=== PATIENT | female | born 1960 | race Caucasian/White ===

== ENCOUNTER 2022-06-23 14:53 | Outpatient (CLI) | payer MEDICARE, OTHER, SELFPAY ==
[2022-06-23 17:56] LABS: Chloride* 102 mmol/L (96-114); Potassium* 4.8 mmol/L (3.6-5.1); Sodium* 140 mmol/L (135-149)
[2022-06-23 17:58] LABS: Cholesterol* 130 mg/dL (90-199)
[2022-06-23 17:59] LABS: Blood Urea Nitrogen* 11 mg/dL (7-30); Carbon Dioxide* 35 mmol/L (20-32); Creatinine* 0.8 mg/dL (0.5-1.5); Estimated Glomerular Filt Rate 84 ml/min
[2022-06-23 18:00] LABS: Calcium* 8.7 mg/dL (8.4-10.6); Glucose* 98 mg/dL (60-115); HDL Cholesterol* 37 mg/dL (>=50); LDL Cholesterol Calculated 74 mg/dL (<100); Triglycerides* 93 mg/dL (40-149)
== END 2022-06-23 14:54 | disposition home or self-care (01) ==
LOC: NFLDREF 14:54
PROVIDERS: PCP Family Medicine; Visit Provider Family Medicine
DX: E11.9 Type 2 diabetes mellitus without complications (principal); E78.5 Hyperlipidemia, unspecified; I10 Essential (primary) hypertension; R73.9 Hyperglycemia, unspecified
CPT/HCPCS: 80048; 80061

== ENCOUNTER 2023-08-17 14:17 | Outpatient (CLI) | payer MEDICARE, SELFPAY | END 2023-08-17 14:18 | disposition home or self-care (01) | PROVIDERS: PCP Family Medicine; Visit Provider Family Medicine | DX: E11.9 Type 2 diabetes mellitus without complications (principal); Z79.84 Long term (current) use of oral hypoglycemic drugs; E78.5 Hyperlipidemia, unspecified | CPT/HCPCS: 80048; 80061; 84443 ==

== ENCOUNTER 2023-11-15 13:45 | Outpatient (RCR) | payer MEDICARE, OTHER, SELFPAY | END 2023-11-30 13:25 | disposition home or self-care (01) | PROVIDERS: PCP Family Medicine; Visit Provider Nurse Practitioner Family | DX: M17.0 Bilateral primary osteoarthritis of knee (principal); Z51.89 Encounter for other specified aftercare | CPT/HCPCS: 97110; 97163; 97535 ==

== ENCOUNTER 2024-07-28 15:41 | Outpatient (CLI) | payer MEDICARE, SELFPAY ==
[2024-07-28 22:30] LABS: Creatinine Urine 94.8 mg/dL
[2024-07-28 22:51] LABS: Microalbumin Creatinine Ratio 410 mg/g (0-30); Microalbumin Urine 39 mg/dL
== END 2024-07-28 15:42 | disposition home or self-care (01) ==
PROVIDERS: PCP Family Medicine; Visit Provider Family Medicine
DX: E11.9 Type 2 diabetes mellitus without complications (principal); I10 Essential (primary) hypertension; E66.01 Morbid (severe) obesity due to excess calories; R53.83 Other fatigue; E78.2 Mixed hyperlipidemia; F31.9 Bipolar disorder, unspecified; G47.33 Obstructive sleep apnea (adult) (pediatric); R25.1 Tremor, unspecified; Z79.4 Long term (current) use of insulin
CPT/HCPCS: 80048; 80061; 82043; 82570; 84443; 84460; 85025; 87086

== ENCOUNTER 2025-04-14 04:44 | Outpatient (CLI) | payer MEDICARE, SELFPAY | END 2025-04-14 04:45 | disposition home or self-care (01) | LOC: AMB 04-15 21:25 | PROVIDERS: PCP Family Medicine; Visit Provider Family Medicine | DX: R42 Dizziness and giddiness (principal); R53.1 Weakness; I49.9 Cardiac arrhythmia, unspecified | CPT/HCPCS: A0425; A0427 ==

== ENCOUNTER 2025-04-14 05:31 | Emergency (ER) | payer MEDICARE, SELFPAY ==
--- OUTSIDE RECORDS SUMMARY | 2019-06-24 08:15 | XMS_ITS | Continuity of Care Document ---
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 [address] [place], [place], [id number], . tel:[phone] Referring Provider: Mesha Millan, [address] [place], [address]. tel:[phone] Family History Family Member Type Diagnosis Age At Onset No Information Payers Payer name Insurance type Covered democrat ID Authorlydiaa tijanki(s) Medicare [id number] Social History Type Description Quantity Date Captured Comments Sex Female Smoking Status No Information Sexual Orientation Don't Know Chief Complaint And Reason For Visit No Information Reason For Referral Reason For Referral No Information History Of Present Illness Encounter Date Complaint History Of Prese nt Illness No Information Functional Status Date Functional Assessmen t No Information Instructions Date Instruction Additional Infor mation No Information Assessments Type Assessment Date No Information Patient Care Teams Name Effective Dates (start - stop) Status Members No Information
--- OUTSIDE RECORDS SUMMARY | 2019-06-24 08:15 | XMS_ITS | Continuity of Care Document ---
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 [address] [place], [place], [id number], . tel:[phone] Referring Provider: Mesha Millan, [address] [place], [address]. tel:[phone] Family History Family Member Type Diagnosis Age At Onset No Information Payers Payer name Insurance type Covered alliance party ID Authorlydiaa tijanki(s) Medicare [id number] Social History Type Description Quantity Date Captured [...]
--- OUTSIDE RECORDS SUMMARY | 2023-03-20 07:30 | XMS_ITS | Continuity of Care Document ---
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 [address] [place] [address], [id number], . tel:[phone] Referring Provider: Paolo Park, [address] [place], [address] . tel:[phone] Family History Family Member Type Diagnosis Age At Onset No Information Payers Payer name Insurance type Covered democrat ID Authorlydiaa honorio(s) [employer] [facility] [id number] Social History Type Description Quantity Date Captured [...]
--- OUTSIDE RECORDS SUMMARY | 2023-03-20 07:30 | XMS_ITS | Continuity of Care Document ---
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 [address] [place] [address], [id number], . tel:[phone] Referring Provider: Paolo Park, [address] [place], [address] . tel:[phone] Family History Family Member Type Diagnosis Age At Onset No Information Payers Payer name Insurance type Covered green party ID Authorlydiaa honorio(s) [employer] [facility] [id number] Social History Type Description Quantity Date Captured [...]
--- OUTSIDE RECORDS SUMMARY | 2025-03-05 09:01 | XMS_ITS | Continuity of Care Document ---
Author Organization [facility] kay Address [address] [facility] ALHAJI Silva [address] Phone Care Team Providers Care Vest Presser Name Role Phone Fabiola Carlene VEGA Unavailable Unavailable Allergies, Adverse Reactions, Alerts Substance Reaction Status Criticality codeine Active No Information Medications Medication Instructions Dosage Effective Dates (start - stop) Status Comments Narcan 4 mg/actuation nasal spray spray 0.1 milliliter by intranasal route in 1 nostril may repeat dose every 2-3 minutes as needed alternating nostrils with each dose 4 MG - Active Onglyza 5 mg tablet - Active furosemide 20 mg tablet Take 20 mg by mouth 2 times daily. - Active Ozempic 0.25 mg or 0.5 mg (2 mg/3 mL) subcutaneous pen injector inject (0.5MG) by subcutaneous route every week on the same day of each week 0.5 MG - Active naproxen 500 mg tablet take 1 tablet by oral route 2 times every day with food 500 MG - Active metformin 500 mg tablet take 2 tablet by oral route 2 times every day with morning and evening meals 1000 MG - Active clonidine HCl 0.1 mg tablet take 1 tablet by oral route 3 times every day 0.1 MG - Active omeprazole 20 mg capsule,delayed release take 1 capsule by oral route every 2 days 30 minutes to 1 hour before a meal 20 MG - Active duloxetine 60 mg capsule,delayed release take 1 capsule by oral route every day 60 MG - Active gabapentin 400 mg capsule take 2 capsule by oral route 3 times every day 800 MG - Active atorvastatin 40 mg tablet take 1 tablet by oral route every day 40 MG - Active Suboxone 4 mg-[address] 1 film by sublingual route twice a day allow to dissolve slowly in mouth without chewing or swallowing for opioid dependence - No Longer Active 30 day supply, Suboxone 4 mg-[address] 1 film by sublingual route twice a day allow to dissolve slowly in mouth without chewing or swallowing for opioid dependence - No Longer Active 30 day supply, Procedures Procedure Date OFFICE VISIT, EST TELEMEDICINE OFFICE VISIT, EST TELEMEDICINE OFFICE/OUTPATIENT VISIT, EST OFFICE VISIT, EST TELEMEDICINE OFFICE VISIT, EST TELEMEDICINE OFFICE/OUTPATIENT VISIT, EST Drug Urine Toxology With Chromatography OFFICE VISIT, EST TELEMEDICINE OFFICE VISIT, EST TELEMEDICINE OFFICE/OUTPATIENT VISIT, EST OFFICE VISIT, EST TELEMEDICINE OFFICE VISIT, EST TELEMEDICINE OFFICE/OUTPATIENT VISIT, EST Drug Urine Toxology With Chromatography Drug test def 8-14 classes OFFICE VISIT, EST TELEMEDICINE OFFICE VISIT, EST TELEMEDICINE OFFICE/OUTPATIENT VISIT, EST OFFICE VISIT, EST TELEMEDICINE OFFICE VISIT, EST TELEMEDICINE OFFICE/OUTPATIENT VISIT, EST Drug Urine Toxology With Chromatography OFFICE VISIT, EST TELEMEDICINE Drug Urine Toxology With Chromatography Drug test def 8-14 classes OFFICE/OUTPATIENT VISIT, EST OFFICE VISIT, EST TELEMEDICINE IMPLANT PERIPHERAL NEUROELECTRODES Oct- ANALYZE NEUROSTIM, COMPLEX IMPLANT PERIPHERAL NEUROELECTRODES Oct- OFFICE VISIT, EST TELEMEDICINE OFFICE VISIT, EST TELEMEDICINE OFFICE/OUTPATIENT VISIT, EST Drug Urine Toxology With Chromatography Drug test def 8-14 classes OFFICE VISIT, EST TELEMEDICINE 23 PT EVAL MOD COMPLEX 30 MIN Psych Dx Eval OFFICE VISIT, EST TELEMEDICINE OFFICE/OUTPATIENT VISIT, EST Foll-up eval q3mo opiod tx OFFICE VISIT, EST TELEMEDICINE Foll-up eval q3mo opiod tx OFFICE VISIT, EST TELEMEDICINE Foll-up eval q3mo opiod tx OFFICE VISIT, EST TELEMEDICINE Drug Urine Toxology With Chromatography Foll-up eval q3mo opiod tx OFFICE/OUTPATIENT VISIT, EST Foll-up eval q3mo opiod tx OFFICE VISIT, EST TELEMEDICINE Foll-up eval q3mo opiod tx OFFICE VISIT, EST TELEMEDICINE Foll-up eval q3mo opiod tx OFFICE VISIT, EST TELEMEDICINE PT-FOCUSED HLTH RISK ASSMT Foll-up eval q3mo opiod tx OFFICE/OUTPATIENT VISIT, EST Drug Urine Toxology With Chromatography Drug test def 8-14 classes OFFICE VISIT, EST TELEMEDICINE Foll-up eval q3mo opiod tx Foll-up eval q3mo opiod tx OFFICE VISIT, EST TELEMEDICINE OFFICE VISIT, EST TELEMEDICINE Foll-up eval q3mo opiod tx Drug Urine Toxology With Chromatography Drug test def 8-14 classes Foll-up eval q3mo opiod tx OFFICE/OUTPATIENT VISIT, EST Foll-up eval q3mo opiod tx OFFICE VISIT, EST TELEMEDICINE Foll-up eval q3mo opiod tx OFFICE VISIT, EST TELEMEDICINE Foll-up eval q3mo opiod tx OFFICE VISIT, EST TELEMEDICINE ROUTINE BLOOD DRAW Foll-up eval q3mo opiod tx OFFICE/OUTPATIENT VISIT, EST Foll-up eval q3mo opiod tx OFFICE VISIT, EST TELEMEDICINE Foll-up eval q3mo opiod tx OFFICE/OUTPATIENT VISIT, EST Foll-up eval q3mo opiod tx OFFICE VISIT, EST TELEMEDICINE OFFICE VISIT, EST TELEMEDICINE Foll-up eval q3mo opiod tx Foll-up eval q3mo opiod tx OFFICE VISIT, EST TELEMEDICINE Drug Urine Toxology With Chromatography Foll-up eval q3mo opiod tx OFFICE VISIT, EST TELEMEDICINE Foll-up eval q3mo opiod tx Substance Interv 15-30mn OFFICE/OUTPATIENT VISIT, EST Foll-up eval q3mo opiod tx OFFICE VISIT, EST TELEMEDICINE Foll-up eval q3mo opiod tx OFFICE VISIT, EST TELEMEDICINE Foll-up eval q3mo opiod tx OFFICE VISIT, EST TELEMEDICINE Foll-up eval q3mo opiod tx OFFICE VISIT, EST TELEMEDICINE Foll-up eval q3mo opiod tx OFFICE VISIT, EST TELEMEDICINE Drug Urine Toxology With Chromatography Drug test def 8-14 classes Foll-up eval q3mo opiod tx OFFICE VISIT, EST TELEMEDICINE 20 Foll-up eval q3mo opiod tx OFFICE VISIT, EST TELEMEDICINE Foll-up eval q3mo opiod tx OFFICE VISIT, EST TELEMEDICINE OFFICE VISIT, EST TELEMEDICINE Foll-up eval q3mo opiod tx OFFICE VISIT, EST TELEMEDICINE Foll-up eval q3mo opiod tx OFFICE VISIT, EST TELEMEDICINE Foll-up eval q3mo opiod tx OFFICE VISIT, EST TELEMEDICINE Foll-up eval q3mo opiod tx OFFICE VISIT, EST TELEMEDICINE Foll-up eval q3mo opiod tx OFFICE VISIT, EST TELEMEDICINE Foll-up eval q3mo opiod tx OFFICE/OUTPATIENT VISIT, EST Drug Urine Toxology With Chromatography Foll-up eval q3mo opiod tx OFFICE/OUTPATIENT VISIT, EST Inj anes agt/steroid; gen ne br,w/aisha ce Right Foll-up eval q3mo opiod tx OFFICE/OUTPATIENT VISIT, EST Foll-up eval q3mo opiod tx OFFICE/OUTPATIENT VISIT, EST Foll-up eval q3mo opiod tx OFFICE/OUTPATIENT VISIT, EST OFFICE/OUTPATIENT VISIT, EST OFFICE/OUTPATIENT VISIT, EST RT Major Joint Or Bursa Inj With Ultraso und Inj, durolane Lidocaine injection OFFICE/OUTPATIENT VISIT, EST OFFICE/OUTPATIENT VISIT, EST OFFICE/OUTPATIENT VISIT, EST OFFICE/OUTPATIENT VISIT, EST OFFICE/OUTPATIENT VISIT, EST Drug Urine Toxology With Chromatography OFFICE/OUTPATIENT VISIT, NEW Advance Directives Directive Yes / No Effective Date File Name No Information Encounters Encounter Description Practice Location Reason(s) For Visit Diagnoses Date Provider Providers Copied on Encounter OFFICE VISIT, [facility], [address] [place] [address], [id number] , [place] tel:[phone] [facility] bilateral knee pain (chief complaint) Causalgia of left lower limbUnilateral primary osteoarthritis , right kneeChronic pain syndromeLong term (current) use of opiate analgesic Mar- 5 [facility] Carlene. [address], [place], [id number], [place]. tel:[phone] OFFICE VISIT, [facility], [address] [place] [address], [id number] , [place] tel:[phone] [facility] Widespread pain (chief complaint) Causalgia of left lower limbUnilateral primary osteoarthritis , right kneeChronic pain syndromeLong term (current) use of opiate analgesic Feb- 5 [facility] Carlene. [address] [facility] [address] [facility] [address], [place], [id number], [place]. tel:[phone] OFFICE/OUTPAT IENT VISIT, [facility], [address] [place] [address], [id number] , [place] [phone] [facility] bilateral knee pain (chief complaint) Chronic pain syndromeCausal crystal of left lower limbUnilateral primary osteoarthritis , right kneeLong term (current) use of opiate analgesic 5 [facility] Carlene. [address], [place], [id number], [place]. tel:[phone] Referring Provider: Paolo Barton, [address] [place] [address], [id number]. tel:[phone] OFFICE VISIT, [facility], [address] [place] [address], [id number] , [place] [phone] [facility] Widespread pain (chief complaint) Chronic pain syndromeCausal crystal of left lower limbUnilateral primary osteoarthritis , right kneeLong term (current) use of opiate analgesic Dec- 5 Fabiolasa Carlene. [address] [facility] [address], [place], [id number], [place]. tel:[phone] OFFICE VISIT, [facility], [address] [place] [address], [id number] , [place] [phone] [facility] Widespread pain (chief complaint) Chronic pain syndromeCausal crystal of left lower limbUnilateral primary osteoarthritis , right kneeLong term (current) use of opiate analgesic 5 Nyongesa Carlene. [address] [facility] [address], [place], [id number], [place]. tel:[phone] OFFICE/OUTPAT IENT VISIT, [facility], [address] [place] [address], [id number] , [place] tel:[phone] [facility] bilateral knee pain (chief complaint) Causalgia of left lower limbUnilateral primary osteoarthritis , right kneeLong term (current) use of opiate analgesicChron ic pain syndromeEncoun ter for therapeutic drug level monitoring 5 Janiya Bean. [address] [place] [address], [id number], [place]. tel:[phone] Referring Provider: Paolo Barton, [address] [place] [address], [id number]. tel:[phone] OFFICE VISIT, [facility], [address] [place] [address], [id number] , [place] tel:[phone] [facility] Knee Pain (chief complaint) Causalgia of left lower limbUnilateral primary osteoarthritis , right kneeLong term (current) use of opiate analgesic 5 Cindyongesa Carlene. [address] [facility] [address], [place], [id number], [place]. tel:[phone] OFFICE VISIT, [facility], [address] [place] [address], [id number] , [place] tel:[phone] [facility] bilateral knee pain (chief complaint) Causalgia of left lower limbUnilateral primary osteoarthritis , right kneeLong term (current) use of opiate analgesic 5 Nyongesa Carlene. [address], [id number], [place]. tel:[phone] Referring Provider: Paolo Barton, [address] [place] [address], [id number]. tel:[phone] OFFICE/OUTPAT IENT VISIT, [facility], [address] [place] [address], [id number] , [place] [phone] [facility] bilateral knee pain (chief complaint) Causalgia of left lower limbUnilateral primary osteoarthritis , right kneeLong term (current) use of opiate analgesic 4 Nyongesa Carlene. [address], [id number], [place]. tel:[phone] Referring Provider: Paolo Barton, [address] [place] [address], [id number]. tel:[phone] OFFICE VISIT, [facility], [address] [place] [address], [id number] , [place] [phone] [facility] bilateral knee pain (chief complaint) Causalgia of left lower limbUnilateral primary osteoarthritis , left kneeUnilateral primary osteoarthritis , right kneeLong term (current) use of opiate analgesic 4 Nyongesa Carlene. [address], [id number], [place]. tel:[phone] Referring Provider: Paolo Barton, [address] [place] [address], [address]. tel:[phone] OFFICE VISIT, [facility], [address] [place] [address], [id number] , [place] tel:[phone] [facility] bilateral knee pain (chief complaint) Causalgia of left lower limbUnilateral primary osteoarthritis , left kneeUnilateral primary osteoarthritis , right kneeLong term (current) use of opiate analgesic Mar-0 4 Nyongesa Carlene. [address], [id number], [place]. tel:[phone] OFFICE/OUTPAT IENT VISIT, [facility], [address] [place] [address], [id number] , [place] tel:[phone] [facility] bilateral knee pain (chief complaint) Causalgia of left lower limbUnilateral primary osteoarthritis , left kneeUnilateral primary osteoarthritis , right kneeLong term (current) use of opiate analgesicEncou nter for therapeutic drug level monitoringBody mass index [BMI] 45.0-49.9, adult Sep-0 6- 4 Mackenzie Addison. [address] [place] [address], [id number], [place]. tel:[phone] Referring Provider: Paolo Barton, [address] [place] [address], [address]. tel:[phone] OFFICE VISIT, [facility], [address] [place] [address], [id number] , [place] tel:[phone] [facility] bilateral knee pain (chief complaint) Causalgia of left lower limbUnilateral primary osteoarthritis , left kneeUnilateral primary osteoarthritis , right kneeLong term (current) use of opiate analgesic Dec-3 0- 4 Nyongesa Carlene. [address], [id number], [place]. tel:[phone] Referring Provider: Paolo Barton, [address] [place] [address], [address]. tel:[phone] OFFICE VISIT, [facility], [address] [place] [address], [id number] , [place] tel:[phone] [facility] bilateral knee pain (chief complaint) Causalgia of left lower limbUnilateral primary osteoarthritis , left kneeUnilateral primary osteoarthritis , right kneeLong term (current) use of opiate analgesic Theron-2 0- 4 Nyongesa Carlene. [address], [id number], [place]. tel:[phone] Referring Provider: Paolo Barton, [address] [place] [address], [address]. tel:[phone] OFFICE/OUTPAT IENT VISIT, [facility], [address] [place] [address], [id number] , [place] tel:[phone] [facility] bilateral knee pain (chief complaint) Causalgia of left lower limbUnilateral primary osteoarthritis , left kneeUnilateral primary osteoarthritis , right kneeLong term (current) use of opiate analgesic 4 Nyongesa Carlene. [address] [facility] [address], [place], [id number], [place]. tel:[phone] Referring Provider: Paolo Barton, [address] [place] [address], [address]. tel:[phone] OFFICE VISIT, [facility] TELEMEDICINE [facility], [address] [place] [address], [id number] , [place] [phone] [facility] bilateral knee pain (chief complaint) Causalgia of left lower limbUnilateral primary osteoarthritis , right kneeUnilateral primary osteoarthritis , left kneeLong term (current) use of opiate analgesic Sep- 4 Nyongesa Carlene. [address] [facility] [address], [place], [id number], [place]. tel:[phone] OFFICE VISIT, [facility] TELEMEDICINE [facility], [address] [place] [address], [id number] , [place] [phone] [facility] bilateral knee pain (chief complaint) Causalgia of left lower limbUnilateral primary osteoarthritis , right kneeUnilateral primary osteoarthritis , left kneeLong term (current) use of opiate analgesic Aug- 4 Nyongesa Carlene. [address] [facility] [address], [place], [id number], [place]. tel:[phone] OFFICE/OUTPAT IENT VISIT, [facility], [address] [place] [address], [id number] , [place] tel:[phone] [facility] bilateral knee pain (chief complaint) Causalgia of left lower limbUnilateral primary osteoarthritis , right kneeUnilateral primary osteoarthritis , left kneeLong term (current) use of opiate analgesicEncou nter for therapeutic drug level monitoring 4 Mimi Concepcion. [address], [id number], [place]. tel:[phone] Referring Provider: Paolo Barton, [address] [place] [address], [address]. tel:[phone] OFFICE VISIT, EST TELEMEDICINE [facility], [address] [place] [address], [id number] , [place] tel:[phone] [facility] bilateral knee pain (chief complaint) Causalgia of left lower limbUnilateral primary osteoarthritis , right kneeUnilateral primary osteoarthritis , left kneeLong term (current) use of opiate analgesic 4 Fabiola Carlene. [address], [id number], [place]. tel:[phone] [facility], [address] [place] [address], [id number] , [place] tel:[phone] [facility] No Information 3 Mimi Carlene. [address], [id number], [place]. tel:[phone] Referring Provider: Paolo Barton, [address] [place] [address], [address]. tel:[phone] OFFICE/OUTPAT IENT VISIT, [facility], [address] [place] [address], [id number] , [place] tel:[phone] [facility] bilateral knee pain (chief complaint) Causalgia of left lower limbUnilateral primary osteoarthritis , right kneeUnilateral primary osteoarthritis , left kneeLong term (current) use of opiate analgesicEncou nter for therapeutic drug level monitoring 3 Fabiola Carlene. [address], [id number], [place]. tel:[phone] Referring Provider: Paolo Barton, [address] [place] [address], [address]. tel:[phone] OFFICE VISIT, EST TELEMEDICINE [facility], [address] [place] [address], [id number] , [place] tel:[phone] [facility] [place] bilateral knee pain (chief complaint) Causalgia of left lower limbUnilateral primary osteoarthritis , right kneeUnilateral primary osteoarthritis , left kneeLong term (current) use of opiate analgesic 3 Mimi Concepcion. [address] [facility] [address], [place], [id number], [place]. tel:[phone] Referring Provider: Paolo Barton, [address] [place] [address], [address]. tel:[phone] [facility], [address] [place] [address], [id number] , [place] tel:[phone] [facility] No Information 3 Vivian Boone. [address] [place] [address], [id number], [place]. tel:[phone] Referring Provider: Paolo Barton, [address] [place] [address], [address]. tel:[phone] OFFICE VISIT, EST TELEMEDICINE [facility], [address] [place] [address], [id number] , [place] tel:[phone] [facility] bilateral knee pain (chief complaint) Causalgia of left lower limbUnilateral primary osteoarthritis , right kneeUnilateral primary osteoarthritis , left kneeLong term (current) use of opiate analgesic 3 Mimi Concepcion. [address] [facility] [address], [place], [id number], [place]. tel:[phone] OFFICE VISIT, EST TELEMEDICINE [facility], [address] [place] [address], [id number] , [place] tel:[phone] [facility] [place] bilateral knee pain (chief complaint) Causalgia of left lower limbUnilateral primary osteoarthritis , right kneeUnilateral primary osteoarthritis , left kneeLong term (current) use of opiate analgesic 3 Mimi Concepcion. [address] [facility] [address], [place], [id number], [place]. tel:[phone] OFFICE/OUTPAT IENT VISIT, EST [facility], [address] [place] [address], [id number] , [place] [phone] [facility] bilateral knee pain (chief complaint) Causalgia of left lower limbUnilateral primary osteoarthritis , right kneeUnilateral primary osteoarthritis , left kneeLong term (current) use of opiate analgesicEncou nter for therapeutic drug level monitoring 3 Aurelia Cheney [facility], [address] [place] [address], [id number], [place]. tel:[phone] Referring Provider: Paolo Barton, [address] [place] [address], [address]. tel:[phone] [facility], [address] [place] [address], [id number] , [place] [phone] [facility] No Information 3 Aurelia Middleton. [facility], [address] [place], [address], [place]. tel:[phone] Referring Provider: Paolo Barton, [address] [place] [address], [address]. tel:[phone] OFFICE VISIT, [facility] TELEMEDICINE [facility], [address] [place] [address], [id number] , [place] [phone] [facility] bilateral knee pain (chief complaint) Causalgia of left lower limbUnilateral primary osteoarthritis , right kneeUnilateral primary osteoarthritis , left kneeLong term (current) use of opiate analgesic 3 Mimi Concepcion. [address] [facility] [address], [place], [place], [id number], [place]. tel:[phone] [facility], [address] [place] [address], [id number] , [place] [phone] [facility] pain (chief complaint) Causalgia of left lower limb 3 Ray Redmond. [address] [place] [address], [id number], [place]. tel:[phone] Referring Provider: Paolo Barton, [address] [place] [address], [address]. tel:[phone] Psych Dx Eval [facility], [address] [place] [address], [id number] , [place] [phone] Telehealth Pain disorder with related psychological factors Dec-0 3 She Awan Peg. [address] [place] [address], [id number], [place]. tel:[phone] Referring Provider: Paolo Barton, [address] [place] [address], [address]. tel:[phone] OFFICE VISIT, [facility] TELEMEDICINE [facility], [address] [place] [address], [id number] , [place] [phone] [facility] bilateral knee pain (chief complaint) Causalgia of left lower limbUnilateral primary osteoarthritis , right kneeUnilateral primary osteoarthritis , left kneeLong term (current) use of opiate analgesic 3 Nyongesa Carlene. [address] [facility] [address], [place], [id number], [place]. tel:[phone] OFFICE/OUTPAT IENT VISIT, [facility], [address] [place] [address], [id number] , [place] [phone] [facility] bilateral knee pain (chief complaint) Unilateral primary osteoarthritis , right kneeUnilateral primary osteoarthritis , left kneeLong term (current) use of opiate analgesicCausa lgia of left lower limb 3 Nyongesa Carlene. [address] [facility] [address], [place], [id number], [place]. tel:[phone] Referring Provider: Paolo Barton, [address] [place] [address], [address]. tel:[phone] OFFICE VISIT, [facility] TELEMEDICINE [facility], [address] [place] [address], [id number] , [place] [phone] [facility] [facility] [place] bilateral knee pain (chief complaint) Unilateral primary osteoarthritis , right kneeUnilateral primary osteoarthritis , left kneeLong term (current) use of opiate analgesic 3 Nyongesa Carlene. [address], [id number], [place]. tel:[phone] OFFICE VISIT, [facility] TELEMEDICINE [facility], [address] [place] [address], [id number] , [place] [phone] [facility] [place] bilateral knee pain (chief complaint) Unilateral primary osteoarthritis , right kneeUnilateral primary osteoarthritis , left kneeLong term (current) use of opiate analgesic 3 Nyongesa Carlene. [address], [id number], [place]. tel:[phone] OFFICE VISIT, [facility] TELEMEDICINE [facility], [address] [place] [address], [id number] , [place] [phone] [facility] bilateral knee pain (chief complaint) Unilateral primary osteoarthritis , right kneeUnilateral primary osteoarthritis , left kneeLong term (current) use of opiate analgesic 3 Nyongesa Carlene. [address], [id number], [place]. tel:[phone] [facility], [address] [place] [address], [id number] , [place] [phone] [facility] No Information 3 Nyongesa Carlene. [address], [id number], [place]. tel:[phone] OFFICE/OUTPAT IENT VISIT, [facility], [address] [place] [address], [id number] , [place] [phone] [facility] bilateral knee pain (chief complaint) Unilateral primary osteoarthritis , right kneeUnilateral primary osteoarthritis , left kneeLong term (current) use of opiate analgesicEncou nter for therapeutic drug level monitoring 3 Nyongesa Carlene. [address], [id number], [place]. tel:[phone] Referring Provider: Paolo Barton, [address] [place] [address], [address]. [phone] OFFICE VISIT, [facility], [address] [place] [address], [id number] , [place] tel:[phone] [facility] bilateral knee pain (chief complaint) Unilateral primary osteoarthritis , right kneeUnilateral primary osteoarthritis , left kneeLong term (current) use of opiate analgesic 2 Nyongesa Carlene. [address] [place], [place], [id number], [place]. [phone] Referring Provider: Paolo Barton, [address] [place] [address], [address]. [phone] OFFICE VISIT, [facility], [address] [place] [address], [id number] , [place] tel:[phone] [facility] bilateral knee pain (chief complaint) Unilateral primary osteoarthritis , right kneeUnilateral primary osteoarthritis , left kneeLong term (current) use of opiate analgesic 2 Nyongesa Carlene. [address], [id number], [place]. tel:[phone] Referring Provider: Paolo Barton, [address] [place] [address], [address]. [phone] OFFICE VISIT, [facility], [address] [place] [address], [id number] , [place] tel:[phone] [facility] bilateral knee pain (chief complaint) Unilateral primary osteoarthritis , right kneeUnilateral primary osteoarthritis , left kneeLong term (current) use of opiate analgesic 2 Nyongesa Carlene. [address], [id number], [place]. tel:[phone] OFFICE/OUTPAT IENT VISIT, [facility], [address] [place] [address], [id number] , [place] tel:[phone] [facility] bilateral knee pain (chief complaint) Unilateral primary osteoarthritis , right kneeUnilateral primary osteoarthritis , left kneeLong term (current) use of opiate analgesicEncou nter for therapeutic drug level monitoringEnco unter for screening for other disorder Feb- 2 Mimi Concepcion. [address], [id number], [place]. tel:[phone] Referring Provider: Paolo Barton, [address] [place] [address], [address]. tel:[phone] [facility], [address] [place] [address], [id number] , [place] [phone] [facility] No Information Feb- 2 Mimi Concepcion. [address], [id number], [place]. tel:[phone] OFFICE VISIT, EST TELEMEDICINE [facility], [address] [place] [address], [id number] , [place] tel:[phone] [facility] bilateral knee pain (chief complaint) Unilateral primary osteoarthritis , right kneeUnilateral primary osteoarthritis , left kneeLong term (current) use of opiate analgesic Jan- 2 Mimi Concepcion. [address], [id number], [place]. tel:[phone] Referring Provider: Paolo Barton, [address] [place] [address], [address]. tel:[phone] OFFICE VISIT, EST TELEMEDICINE [facility], [address] [place] [address], [id number] , [place] tel:[phone] [facility] bilateral knee pain (chief complaint) Unilateral primary osteoarthritis , right kneeUnilateral primary osteoarthritis , left kneeLong term (current) use of opiate analgesicGener alized abdominal pain Dec- 2 Mimi Concepcion. [address], [id number], [place]. tel:[phone] Referring Provider: Paolo Barton, [address] [place] [address], [address]. tel:[phone] OFFICE VISIT, EST TELEMEDICINE [facility], [address] [place] [address], [id number] , [place] tel:[phone] [facility] [place] bilateral knee pain (chief complaint) Unilateral primary osteoarthritis , right kneeUnilateral primary osteoarthritis , left kneeLong term (current) use of opiate analgesic Theron- 2 Adityacharlesladymaxwell Garciae. [address] [place] [address], [id number], [place]. tel:[phone] Referring Provider: Paolo Barton, [address] [place] [address], [address]. tel:[phone] [facility], [address] [place] [address], [id number] , [place] tel:[phone] [facility] No Information 2 Nyongesa Carlene. [address], [place], [id number], [place]. tel:[phone] OFFICE/OUTPAT IENT VISIT, [facility], [address] [place] [address], [id number] , [place] tel:[phone] [facility] bilateral knee pain (chief complaint) Chronic pain syndromeUnilat eral primary osteoarthritis , right kneeUnilateral primary osteoarthritis , left kneeGeneralize d abdominal painLong term (current) use of opiate analgesic 2 Nyongesa Carlene. [address] [facility] [address], [place], [id number], [place]. tel:[phone] Referring Provider: Paolo Barton, [address] [place] [address], [address]. tel:[phone] OFFICE VISIT, EST TELEMEDICINE [facility], [address] [place] [address], [id number] , [place] tel:[phone] [facility] [place] bilateral knee pain (chief complaint) Chronic pain syndromeUnilat eral primary osteoarthritis , right kneeUnilateral primary osteoarthritis , left kneeGeneralize d abdominal painLong term (current) use of opiate analgesic Aug- 2 Nyongesa Carlene. [address], [id number], [place]. tel:[phone] Referring Provider: Paolo Barton, [address] [place] [address], [address]. tel:[phone] OFFICE VISIT, [facility] TELEMEDICINE [facility], [address] [place] [address], [id number] , [place] tel:[phone] [facility] bilateral knee pain (chief complaint) Unilateral primary osteoarthritis , left kneeUnilateral primary osteoarthritis , right kneeChronic pain syndromeLong term (current) use of opiate analgesicGener alized abdominal pain Jul-2 2 Nyongesa Carlene. [address], [id number], [place]. tel:[phone] Referring Provider: Vikas Somers, [facility] [address] [place], [address]. tel:[phone] OFFICE VISIT, [facility], [address] [place] [address], [id number] , [place] tel:[phone] [facility] bilateral knee pain (chief complaint) Unilateral primary osteoarthritis , left kneeUnilateral primary osteoarthritis , right kneeChronic pain syndromeLong term (current) use of opiate analgesic b-0 2 Nyongesa Carlene. [address], [id number], [place]. tel:[phone] Referring Provider: Vikas Somers, [facility] [address] [place], [address]. tel:[phone] [facility], [address] [place] [address], [id number] , [place] tel:[phone] [facility] No Information 2 Nyongesa Carlene. [address], [id number], [place]. tel:[phone] OFFICE/OUTPAT IENT VISIT, [facility], [address] [place] [address], [id number] , [place] tel:[phone] [facility] bilateral knee pain (chief complaint) Unilateral primary osteoarthritis , left kneeUnilateral primary osteoarthritis , right kneeChronic pain syndromeLong term (current) use of opiate analgesicGener alized abdominal painEncounter for therapeutic drug level monitoring 2 Mimi Concepcion. 0[address] [facility] [address], [place], [id number], [place]. tel:[phone] Referring Provider: Vikas Somers, [facility] [address] , [place], [address]. tel:[phone] OFFICE VISIT, EST TELEMEDICINE [facility], [address] [place] [address], [id number] , [place] [phone] [facility] bilateral knee pain (chief complaint) Unilateral primary osteoarthritis , left kneeUnilateral primary osteoarthritis , right kneeChronic pain syndromeLong term (current) use of opiate analgesicGener alized abdominal pain 1 Mimi Concepcion. 03083 [facility] [address], [id number], [place]. tel:[phone] OFFICE/OUTPAT IENT VISIT, [facility], [address] [place] [address], [id number] , [place] [phone] [facility] bilateral knee pain (chief complaint) Unilateral primary osteoarthritis , left kneeUnilateral primary osteoarthritis , right kneeChronic pain syndromeLong term (current) use of opiate analgesicGener alized abdominal pain 1 Mimi Concepcion. 17771 [facility] [address], [place], [id number], [place]. tel:[phone] Referring Provider: Paolo Barton, [address] [place], [address]. tel:[phone] OFFICE VISIT, EST TELEMEDICINE [facility], [address] [place] [address], [id number] , [place] [phone] [facility] bilateral knee pain (chief complaint) Unilateral primary osteoarthritis , left kneeUnilateral primary osteoarthritis , right kneeChronic pain syndromeLong term (current) use of opiate analgesic 1 Nyongesa Carlene. [address], [id number], [place]. tel:[phone] OFFICE VISIT, [facility], [address] [place] [address], [id number] , [place] tel:[phone] [facility] bilateral knee pain (chief complaint) Unilateral primary osteoarthritis , left kneeUnilateral primary osteoarthritis , right kneeChronic pain syndromeLong term (current) use of opiate analgesic Feb- 1 Nyongesa Carlene. [address], [id number], [place]. tel:[phone] Referring Provider: Paolo Barton, [address] [place] [address], [address]. tel:[phone] OFFICE VISIT, [facility], [address] [place] [address], [id number] , [place] tel:[phone] [facility] bilateral knee pain (chief complaint) Unilateral primary osteoarthritis , left kneeUnilateral primary osteoarthritis , right kneeChronic pain syndromeLong term (current) use of opiate analgesic 1 Nyongesa Carlene. [address], [id number], [place]. tel:[phone] Referring Provider: Paolo Barton, [address] [place] [address], [address]. tel:[phone] [facility], [address] [place] [address], [id number] , [place] tel:[phone] [facility] (current) use of opiate analgesicEncou nter for therapeutic drug level monitoring 1 Nyongesa Carlene. [address], [id number], [place]. tel:[phone] Referring Provider: Paolo Barton, [address] [place] [address], [address]. tel:[phone] OFFICE VISIT, [facility], [address] [place] [address], [id number] , [place] [phone] [facility] bilateral knee pain (chief complaint) Unilateral primary osteoarthritis , left kneeUnilateral primary osteoarthritis , right kneeChronic pain syndromeLong term (current) use of opiate analgesicEncou nter for therapeutic drug level monitoring 1 Nyongesa Carlene. 38860 [facility] [address], [place], [id number], [place]. tel:[phone] Referring Provider: Paolo Barton, [address] [place] [address], [address]. tel:[phone] OFFICE/OUTPAT IENT VISIT, [facility], [address] [place] [address], [id number] , [place] [phone] [facility] bilateral knee pain (chief complaint) Unilateral primary osteoarthritis , left kneeUnilateral primary osteoarthritis , right kneeChronic pain syndromeLong term (current) use of opiate analgesicEncou nter for therapeutic drug level monitoringEnco unter for screening for other disorder 1 Nyongesa Carlene. 9[address]41 [facility] [address], [id number], [place]. tel:[phone] Referring Provider: Paolo Barton, [address] [place] [address], [address]. [phone] OFFICE VISIT, [facility], [address] [place] [address], [id number] , [place] [phone] [facility] bilateral knee pain (chief complaint) Unilateral primary osteoarthritis , left kneeUnilateral primary osteoarthritis , right kneeChronic pain syndromeLong term (current) use of opiate analgesic 1 Nyongesa Carlene. 63479 [facility] [address], [place], [id number], [place]. tel:[phone] Referring Provider: Paolo Barton, [address] [place] [address], [address]. tel:[phone] OFFICE VISIT, [facility], [address] [place] [address], [id number] , [place] tel:[phone] [facility] [place] bilateral knee pain (chief complaint) Unilateral primary osteoarthritis , left kneeUnilateral primary osteoarthritis , right kneeChronic pain syndromeLong term (current) use of opiate analgesic 1 Nyongesa Carlene. [address], [place], [id number], [place]. tel:[phone] Referring Provider: Paolo Barton, [address] [place] [address], [address]. tel:[phone] OFFICE VISIT, [facility], [address] [place] [address], [id number] , [place] [phone] [facility] bilateral knee pain (chief complaint) Unilateral primary osteoarthritis , left kneeUnilateral primary osteoarthritis , right kneeChronic pain syndromeLong term (current) use of opiate analgesic 1 Nyongesa Carlene. [address], [place], [id number], [place]. tel:[phone] Referring Provider: Paolo Barton, [address] [place] [address], [address]. tel:[phone] OFFICE VISIT, [facility], [address] [place] [address], [id number] , [place] [phone] [facility] bilateral knee pain (chief complaint) Unilateral primary osteoarthritis , left kneeUnilateral primary osteoarthritis , right kneeChronic pain syndromeLong term (current) use of opiate analgesic 1 Nyongesa Carlene. [address] [place] [address], [place], [id number], [place]. tel:[phone] Referring Provider: Paolo Barton, [address] [place] [address], [address]. tel:[phone] OFFICE VISIT, [facility], [address] [place] [address], [id number] , [place] [phone] [facility] [place] bilateral knee pain (chief complaint) Unilateral primary osteoarthritis , left kneeUnilateral primary osteoarthritis , right kneeChronic pain syndromeLong term (current) use of opiate analgesic 1 Nyongesa Carlene. [address], [id number], [place]. tel:[phone] Referring Provider: Paolo Barton, [address] [place] [address], [address]. tel:[phone] [facility], [address] [place] [address], [id number] , [place] tel:[phone] [facility] No Information 0 Nyongesa Carlene. [address], [id number], [place]. tel:[phone] Referring Provider: Paolo Barton, [address] [place] [address], [address]. tel:[phone] OFFICE VISIT, EST TELEMEDICINE [facility], [address] [place] [address], [id number] , [place] tel:[phone] [facility] bilateral knee pain (chief complaint) Unilateral primary osteoarthritis , left kneeUnilateral primary osteoarthritis , right kneeChronic pain syndromeLong term (current) use of opiate analgesicEncou nter for therapeutic drug level monitoring 0 Nyongesa Carlene. [address], [id number], [place]. tel:[phone] Referring Provider: Paolo Barton, [address] [place] [address], [address]. tel:[phone] OFFICE VISIT, EST TELEMEDICINE [facility], [address] [place] [address], [id number] , [place] tel:[phone] [facility] bilateral knee pain (chief complaint) Unilateral primary osteoarthritis , left kneeUnilateral primary osteoarthritis , right kneeChronic pain syndromeLong term (current) use of opiate analgesic 0 Nyongesa Carlene. [address], [id number], [place]. tel:[phone] Referring Provider: Paolo Barton, [address] [place] [address], [address]. tel:[phone] OFFICE VISIT, EST TELEMEDICINE [facility], [address] [place] [address], [id number] , [place] tel:[phone] [facility] [place] bilateral knee pain (chief complaint) Unilateral primary osteoarthritis , left kneeUnilateral primary osteoarthritis , right kneeChronic pain syndromeLong term (current) use of opiate analgesic Nov-0 -202 0 Nyongesa Carlene. [address], [id number], [place]. tel:[phone] Referring Provider: Paolo Barton, [address] [place] [address], [address]. tel:[phone] [facility], [address] [place] [address], [id number] , [place] tel:[phone] [facility] [place] Bilateral primary osteoarthritis of knee Mar-2 0 Nyongesa Carlene. [address], [id number], [place]. tel:[phone] OFFICE VISIT, EST TELEMEDICINE [facility], [address] [place] [address], [id number] , [place] tel:[phone] [facility] [place] bilateral knee pain (chief complaint) Unilateral primary osteoarthritis , left kneeUnilateral primary osteoarthritis , right kneeChronic pain syndromeLong term (current) use of opiate analgesic Sep-0 -202 0 Nyongesa Carlene. [address], [id number], [place]. tel:[phone] Referring Provider: Paolo Barton, [address] [place] [address], [address]. tel:[phone] OFFICE VISIT, EST TELEMEDICINE [facility], [address] [place] [address], [id number] , [place] tel:[phone] [facility] bilateral knee pain (chief complaint) Unilateral primary osteoarthritis , left kneeUnilateral primary osteoarthritis , right kneeChronic pain syndromeLong term (current) use of opiate analgesic Aug-0 4-202 0 Nyongesa Carlene. [address], [id number], [place]. tel:[phone] Referring Provider: Paolo Barton, [address] [place] [address], [address]. tel:[phone] OFFICE VISIT, EST [facility], [address] [place] [address], [id number] , [place] [phone] [facility] bilateral knee pain (chief complaint) Unilateral primary osteoarthritis , left kneeUnilateral primary osteoarthritis , right kneeChronic pain syndromeLong term (current) use of opiate analgesic 0 Nyongesa Carlene. [address], [id number], [place]. tel:[phone] Referring Provider: Paolo Barton, [address] [place] [address], [address]. tel:[phone] OFFICE VISIT, EST [facility], [address] [place] [address], [id number] , [place] tel:[phone] [facility] bilateral knee pain (chief complaint) Unilateral primary osteoarthritis , left kneeUnilateral primary osteoarthritis , right kneeChronic pain syndromeLong term (current) use of opiate analgesic 0 Nyongesa Carlene. [address], [id number], [place]. tel:[phone] Referring Provider: Paolo Barton, [address] [place] [address], [address]. tel:[phone] OFFICE VISIT, EST [facility], [address] [place] [address], [id number] , [place] tel:[phone] [facility] bilateral knee pain (chief complaint) Unilateral primary osteoarthritis , left kneeUnilateral primary osteoarthritis , right kneeChronic pain syndromeLong term (current) use of opiate analgesic 0 Nyongesa Carlene. [address], [id number], [place]. tel:[phone] Referring Provider: Paolo Barton, [address] [place] [address], [address]. tel:[phone] OFFICE VISIT, [facility] TELEMEDICINE [facility], [address] [place] [address], [id number] , [place] tel:[phone] [facility] bilateral knee pain (chief complaint) Unilateral primary osteoarthritis , left kneeUnilateral primary osteoarthritis , right kneeChronic pain syndromeLong term (current) use of opiate analgesic Apr-0 0 Nyongesa Carlene. 18068 [facility] [address], [id number], [place]. tel:[phone] Referring Provider: Paolo Barton, [address] [place] [address], [address]. tel:[phone] OFFICE/OUTPAT IENT VISIT, [facility], [address] [place] [address], [id number] , [place] [phone] [facility] bilateral knee pain (chief complaint) Unilateral primary osteoarthritis , left kneeUnilateral primary osteoarthritis , right kneeChronic pain syndromeLong term (current) use of opiate analgesic Mar-0 0 Nyongesa Carlene. [address], [id number], [place]. tel:[phone] Referring Provider: Paolo Barton, [address] [place] [address], [address]. tel:[phone] OFFICE/OUTPAT IENT VISIT, [facility], [address] [place] [address], [id number] , [place] [phone] [facility] bilateral knee pain (chief complaint) Unilateral primary osteoarthritis , left kneeUnilateral primary osteoarthritis , right kneeChronic pain syndromeLong term (current) use of opiate analgesicEncou nter for therapeutic drug level monitoring Jul-0 0 Nyongesa Carlene. [address] [facility] [address], [id number], [place]. tel:[phone] Referring Provider: Paolo Barton, [address] [place] [address], [address]. tel:[phone] [facility], [address] [place] [address], [id number] , [place] tel:[phone] [facility] [place] Unilateral primary osteoarthritis , right knee 0 Monty Zimmer. [address] [place] [address], [id number], [place]. tel:[phone] Referring Provider: Paolo Barton, [address] [place] [address], [address]. tel:[phone] OFFICE/OUTPAT IENT VISIT, [facility], [address] [place] [address], [id number] , [place] [phone] [facility] bilateral knee pain (chief complaint) Unilateral primary osteoarthritis , left kneeUnilateral primary osteoarthritis , right kneeChronic pain syndromeLong term (current) use of opiate analgesic 0- 0 Nyongesa Carlene. [address] [facility] [address], [place], [id number], [place]. tel:[phone] Referring Provider: Paolo Barton, [address] [place] [address], [address]. tel:[phone] OFFICE/OUTPAT IENT VISIT, [facility], [address] [place] [address], [id number] , [place] [phone] [facility] bilateral knee pain (chief complaint) Unilateral primary osteoarthritis , left kneeUnilateral primary osteoarthritis , right kneeChronic pain syndromeLong term (current) use of opiate analgesic 0 9 Nyongesa Carlene. [address] [facility] [address], [place], [id number], [place]. tel:[phone] Referring Provider: Paolo Barton, [address] [place] [address], [address]. tel:[phone] OFFICE/OUTPAT IENT VISIT, [facility], [address] [place] [address], [id number] , [place] tel:[phone] [facility] bilateral knee pain (chief complaint) Unilateral primary osteoarthritis , left kneeUnilateral primary osteoarthritis , right kneeChronic pain syndromeLong term (current) use of opiate analgesicDiarr hea 9 [facility]. [address] [facility] [address], [place], [id number], [place]. tel:[phone] Referring Provider: Paolo Barton, [address] [place] [address], [address]. tel:[phone] OFFICE/OUTPAT IENT VISIT, [facility], [address] [place] [address], [id number] , [place] [phone] [facility] bilateral knee pain (chief complaint) Pain in right kneeUnilateral primary osteoarthritis , left kneeUnilateral primary osteoarthritis , right kneeChronic pain syndromeLong term (current) use of opiate analgesicDiarr heaNausea 9 [facility]. [address] [facility] [address], [place], [id number], [place]. tel:[phone] Referring Provider: Paolo Barton, [address] [place] [address], [address]. tel:[phone] OFFICE/OUTPAT IENT VISIT, [facility], [address] [place] [address], [id number] , [place] tel:[phone] [facility] bilateral knee pain (chief complaint) Pain in right kneeUnilateral primary osteoarthritis , left kneeChronic pain syndromeLong term (current) use of opiate analgesicUnila teral primary osteoarthritis , right knee Sep- 9 [facility]. [address] [facility] [address], [place], [id number], [place]. tel:[phone] Referring Provider: Paolo Barton, [address] [place] [address], [address]. tel:[phone] [facility], [address] [place] [address], [id number] , [place] tel:[phone] [facility] Pain in right knee 9 [facility]. [facility], [address] [place] [address] [address], [place], [address], [place]. tel:[phone] Referring Provider: Paolo Barton, [address] [place] [address], [address]. tel:[phone] OFFICE/OUTPAT IENT VISIT, [facility], [address] [place] [address], [id number] , [place] [phone] [facility] bilateral knee pain (chief complaint) Pain in right kneeUnilateral primary osteoarthritis , left kneeChronic pain syndromeLong term (current) use of opiate analgesic 9 Nyongesa Carlene. [address] [facility] [address] [facility] [address], [place], [id number], [place]. tel:[phone] Referring Provider: Paolo Barton, [address] [place] [address], [address]. tel:[phone] OFFICE/OUTPAT IENT VISIT, [facility], [address] [place] [address], [id number] , [place] [phone] [facility] bilateral knee pain (chief complaint) Chronic pain syndromePain in right kneeUnilateral primary osteoarthritis , left kneeLong term (current) use of opiate analgesic 9 Nyongesa Carlene. [address] [place] [address], [id number], [place]. tel:[phone] Referring Provider: Paolo Barton, [address] [place] [address], [address]. tel:[phone] OFFICE/OUTPAT IENT VISIT, [facility], [address] [place] [address], [id number] , [place] [phone] [facility] bilateral knee pain (chief complaint) Chronic pain syndromeUnilat eral primary osteoarthritis , left kneePain in right knee 9 Aurelia Cheney [facility] [place], [address] [place], [address], [place]. tel:[phone] Referring Provider: Paolo Barton, [address] [place] [address], [address]. tel:[phone] OFFICE/OUTPAT IENT VISIT, [facility], [address] [place] [address], [id number] , [place] tel:[phone] [facility] bilateral knee pain (chief complaint) [facility] (current) use of opiate analgesicLong term current use of anticoagulantC hronic pain syndromeDiabet es insipidusPain in right kneeUnilateral primary osteoarthritis , left knee Theron- 0-201 9 Nyongesa Carlene. [address] [facility] [address], [place], [id number], [place]. [phone] Referring Provider: Paolo Barton, [address] [place] [address], [address]. [phone] OFFICE/OUTPAT IENT VISIT, [facility], [address] [place] [address], [id number] , [place] [phone] [facility] bilateral knee pain (chief complaint) meterman (current) use of opiate analgesicLong term current use of anticoagulantC hronic pain syndromeDiabet es insipidusPain in right kneeUnilateral primary osteoarthritis , left knee October- 9 [facility]. [id number] [place] [address] [address], [place], [id number], [place]. [phone] Referring Provider: Paolo Barton, [address] [place] [address], [address]. [phone] OFFICE/OUTPAT IENT VISIT, [facility], [address] [place] [address], [id number] , [place] [phone] [facility] bilateral knee pain (chief complaint) Pain in right kneeUnilateral primary osteoarthritis , left kneeChronic pain syndromeLong term (current) use of opiate analgesicLong term current use of anticoagulantD iabetes insipidus 3-201 9 Pieter Patel. [address], [place], [address]. tel:[phone] Family History Family Member Type Diagnosis Age At Onset Mother Problem (finding) Chronic Back Pain Payers Payer name Insurance type Covered alliance party ID Authorperico olmedo(s) AARP MedicareComplete Replacement 16 [id number] 21 [employer] [facility] [facility] [id number] Social History Type Description Quantity Date Captured Comments Alcohol Use Details Unknown Caffeine Use Details Unknown Tobacco Use Status Smoking Status No Information Sex Female Sexual Orientation Don't Know Chief Complaint And Reason For Visit From encounter dated 03/05/2025 15:01'. bilateral knee pain (chief complaint). Description: Duration: chronic. Severity level is 5. The problem is stable. Location: bilateral knee. Reason For Referral Reason For Referral No Information Plan Of Treatment Date Type Action Status Goal AST (SGOT). Due on due Goal Creatinine. Due on due Goal UDT. Due on due Goal Order Annual PT. Due on due Goal ALT (SGPT). Due on due Goal SOCCER COMMENTATOR Paperwork. Due on due Goal OARS. Due on due Goal BOILER/CHILLER TECHNICIAN Scanned. Due on due Goal Medication Recon ciliation. Due on due Goal Hepatitis C scre ening. Due on due Goal Weight. Due on d ue Goal HPV. Due on due Goal FIT. Due on due Goal Review Allergy List. Due on due Goal Zoster vaccine ( 1st). Due on due Goal Tobacco Use. Due on due Goal Tobacco screening. Due on due Goal CT-Colonography. Due on due Goal FIT-DNA. Due on due Goal Unhealthy drug u se screening. Due on due Goal Height. Due on d ue Goal Update Social Hi story. Due on due Goal PHQ-9. Due on du e Goal OARS. Due on due Goal FIT-DNA. Due on due Goal Hepatitis C scre ening. Due on due Goal HPV. Due on due Goal Review Allergy List. Due on due Goal SOCCER COMMENTATOR Paperwork. Due on due Goal Zoster vaccine ( 1st). Due on due Goal FIT. Due on due Goal UDT. Due on due Goal Tobacco screening. Due on due Goal Order Annual PT. Due on due Goal ALT (SGPT). Due on due Goal Medication Recon ciliation. Due on due Goal Unhealthy drug u se screening. Due on due Goal BOILER/CHILLER TECHNICIAN Scanned. Due on due Goal Weight. Due on d ue Goal Tobacco Use. Due on due Goal Creatinine. Due on due Goal CT-Colonography. Due on due Goal AST (SGOT). Due on due Goal Height. Due on d ue Goal Update Social Hi story. Due on due Goal PHQ-9. Due on du e Goal Unhealthy drug u se screening. Due on due Goal Height. Due on d ue Goal UDT. Due on due Goal CT-Colonography. Due on due Goal Medication Recon ciliation. Due on due Goal Creatinine. Due on due Goal FIT-DNA. Due on due Goal BOILER/CHILLER TECHNICIAN Scanned. Due on 025 due Goal Hepatitis C scre ening. Due on due Goal HPV. Due on due Goal PHQ-9. Due on du e Goal ALT (SGPT). Due on due Goal Weight. Due on d ue Goal Tobacco Use. Due on 025 due Goal SOCCER COMMENTATOR Paperwork. Due on due Goal Order Annual PT. Due on due Goal AST (SGOT). Due on due Goal Update Social Hi story. Due on due Goal Zoster vaccine ( 1st). Due on due Goal FIT. Due on due Goal OARS. Due on due Goal Tobacco screening. Due on Yaakov due Goal Review Allergy List. Due on due Goal Medication Recon ciliation. Due on due Goal Zoster vaccine ( 1st). Due on due Goal HPV. Due on due Goal Tobacco screening. Due on due Goal SOCCER COMMENTATOR Paperwork. Due on due Goal UDT. Due on due Goal OARS. Due on due Goal FIT. Due on due Goal ALT (SGPT). Due on due Goal Height. Due on d ue Goal Review Allergy List. Due on due Goal Creatinine. Due on due Goal FIT-DNA. Due on due Goal AST (SGOT). Due on due Goal PHQ-9. Due on du e Goal Unhealthy drug u se screening. Due on due Goal CT-Colonography. Due on due Goal Order Annual PT. Due on due Goal Tobacco Use. Due on due Goal Hepatitis C scre ening. Due on due Goal BOILER/CHILLER TECHNICIAN Scanned. Due on due Goal Weight. Due on d ue Goal Update Social Hi story. Due on due Goal SOCCER COMMENTATOR Paperwork. Due on due Goal Creatinine. Due on due Goal UDT. Due on due Goal Tobacco screening. Due on due Goal Update Social Hi story. Due on due Goal CT-Colonography. Due on due Goal Zoster vaccine ( 1st). Due on due Goal BOILER/CHILLER TECHNICIAN Scanned. Due on due Goal PHQ-9. Due on du e Goal Review Allergy List. Due on due Goal ALT (SGPT). Due on due Goal FIT-DNA. Due on due Goal Hepatitis C scre ening. Due on due Goal Tobacco Use. Due on due Goal OARS. Due on due Goal Height. Due on d ue Goal Order Annual PT. Due on due Goal Weight. Due on d ue Goal AST (SGOT). Due on due Goal HPV. Due on due Goal Unhealthy drug u se screening. Due on due Goal Medication Recon ciliation. Due on due Goal FIT. Due on due Goal OARS. Due on due Goal BOILER/CHILLER TECHNICIAN Scanned. Due on due Goal Order Annual PT. Due on due Goal ALT (SGPT). Due on due Goal UDT. Due on due Goal Creatinine. Due on due Goal SOCCER COMMENTATOR Paperwork. Due on due Goal AST (SGOT). Due on due Goal Weight. Due on d ue Goal PHQ-9. Due on du e Goal Tobacco Use. Due on due Goal Review Allergy List. Due on due Goal Unhealthy drug u se screening. Due on due Goal HPV. Due on due Goal Update Social Hi story. Due on due Goal Height. Due on d ue Goal FIT-DNA. Due on due Goal Tobacco screening. Due on due Goal Medication Recon ciliation. Due on due Goal Hepatitis C scre ening. Due on due Goal CT-Colonography. Due on due Goal FIT. Due on due Goal Zoster vaccine ( 1st). Due on due Goal Tobacco Use. Due on due Goal Medication Recon ciliation. Due on due Goal Lipid panel. Due on 025 due Goal HPV. Due on due Goal OARS. Due on due Goal BOILER/CHILLER TECHNICIAN Scanned. Due on 025 due Goal Update Social Hi story. Due on due Goal Review Allergy List. Due on due Goal ALT (SGPT). Due on due Goal Order Annual PT. Due on due Goal AST (SGOT). Due on due Goal Weight. Due on d ue Goal SOCCER COMMENTATOR Paperwork. Due on due Goal Creatinine. Due on due Goal FIT. Due on due Goal CT-Colonography. Due on due Goal Unhealthy drug u se screening. Due on due Goal Zoster vaccine ( ). Due on due Goal UDT. Due on due Goal Hepatitis C scre ening. Due on due Goal FIT-DNA. Due on due Goal Height. Due on d ue Goal PHQ-9. Due on du e Goal Zoster vaccine ( ). Due on due Goal FIT-DNA. Due on due Goal OARS. Due on due Goal Medication Recon ciliation. Due on due Goal Weight. Due on d ue Goal FIT. Due on due Goal Review Allergy List. Due on due Goal UDT. Due on due Goal Unhealthy drug u se screening. Due on due Goal Height. Due on d ue Goal PHQ-9. Due on du e Goal HPV. Due on due Goal Tobacco Use. Due on due Goal Creatinine. Due on due Goal AST (SGOT). Due on due Goal Order Annual PT. Due on due Goal Update Social Hi story. Due on due Goal SOCCER COMMENTATOR Paperwork. Due on due Goal ALT (SGPT). Due on due Goal BOILER/CHILLER TECHNICIAN Scanned. Due on due Goal Hepatitis C scre ening. Due on due Goal Lipid panel. Due on due Goal CT-Colonography. Due on due Goal ALT (SGPT). Due on 24 due Goal BOILER/CHILLER TECHNICIAN Scanned. Due on due Goal SOCCER COMMENTATOR Paperwork. Due on due Goal Creatinine. Due on due Goal AST (SGOT). Due on due Goal OARS. Due on due Goal Order Annual PT. Due on due Goal UDT. Due on due Goal FIT-DNA. Due on due Goal HPV. Due on due Goal Medication Recon ciliation. Due on due Goal Weight. Due on d ue Goal Unhealthy drug u se screening. Due on due Goal Review Allergy List. Due on due Goal Update Social Hi story. Due on due Goal Lipid panel. Due on due Goal Hepatitis C scre ening. Due on due Goal PHQ-9. Due on du e Goal Zoster vaccine ( 1st). Due on due Goal FIT. Due on due Goal CT-Colonography. Due on due Goal Tobacco Use. Due on due Goal Height. Due on d ue Goal Creatinine. Due on due Goal PHQ-9. Due on du e Goal OARS. Due on due Goal SOCCER COMMENTATOR Paperwork. Due on due Goal Update Social Hi story. Due on due Goal ALT (SGPT). Due on due Goal Weight. Due on d ue Goal FIT-DNA. Due on due Goal HPV. Due on due Goal Medication Recon ciliation. Due on due Goal Unhealthy drug u se screening. Due on due Goal AST (SGOT). Due on due Goal BOILER/CHILLER TECHNICIAN Scanned. Due on due Goal UDT. Due on due Goal Order Annual PT. Due on due Goal Zoster vaccine ( ). Due on due Goal CT-Colonography. Due on due Goal Tobacco Use. Due on due Goal Height. Due on d ue Goal Review Allergy List. Due on due Goal Hepatitis C scre ening. Due on due Goal FIT. Due on due Goal Lipid panel. Due on due Goal Unhealthy drug u se screening. Due on due Goal Height. Due on d ue Goal BOILER/CHILLER TECHNICIAN Scanned. Due on due Goal Zoster vaccine ( ). Due on due Goal HPV. Due on due Goal Hepatitis C scre ening. Due on due Goal FIT. Due on due Goal SOCCER COMMENTATOR Paperwork. Due on due Goal Medication Recon ciliation. Due on due Goal OARS. Due on due Goal Update Social Hi story. Due on due Goal Weight. Due on d ue Goal Tobacco Use. Due on due Goal CT-Colonography. Due on due Goal AST (SGOT). Due on due Goal Lipid panel. Due on due Goal Review Allergy List. Due on due Goal Creatinine. Due on due Goal UDT. Due on due Goal ALT (SGPT). Due on due Goal PHQ-9. Due on du e Goal Order Annual PT. Due on due Goal FIT-DNA. Due on due Goal FIT-DNA. Due on due Goal PHQ-9. Due on du e Goal HPV. Due on due Goal AST (SGOT). Due on due Goal Weight. Due on d ue Goal Height. Due on d ue Goal SOCCER COMMENTATOR Paperwork. Due on due Goal Zoster vaccine ( 1st). Due on due Goal Creatinine. Due on due Goal OARS. Due on due Goal FIT. Due on due Goal CT-Colonography. Due on due Goal Review Allergy List. Due on due Goal ALT (SGPT). Due on due Goal Update Social Hi story. Due on due Goal Unhealthy drug u se screening. Due on due Goal Tobacco Use. Due on due Goal Hepatitis C scre ening. Due on due Goal BOILER/CHILLER TECHNICIAN Scanned. Due on due Goal Lipid panel. Due on due Goal Order Annual PT. Due on due Goal UDT. Due on due Goal Medication Recon ciliation. Due on due Goal Lifestyle education regardin g diet completed Goal OARS. Due on due Goal ALT (SGPT). Due on due Goal Creatinine. Due on due Goal Order Annual PT. Due on due Goal UDT. Due on due Goal FIT. Due on due Goal BOILER/CHILLER TECHNICIAN Scanned. Due on due Goal SOCCER COMMENTATOR Paperwork. Due on due Goal AST (SGOT). Due on due Goal Tobacco Use. Due on due Goal Review Allergy List. Due on due Goal Lipid panel. Due on due Goal Weight. Due on d ue Goal CT-Colonography. Due on due Goal Update Social Hi story. Due on due Goal Unhealthy drug u se screening. Due on due Goal Height. Due on d ue Goal Medication Recon ciliation. Due on due Goal HPV. Due on due Goal FIT-DNA. Due on due Goal Hepatitis C scre ening. Due on due Goal PHQ-9. Due on du e Goal Zoster vaccine ( 1st). Due on due Goal ALT (SGPT). Due on due Goal AST (SGOT). Due on due Goal Order Annual PT. Due on due Goal BOILER/CHILLER TECHNICIAN Scanned. Due on due Goal SOCCER COMMENTATOR Paperwork. Due on due Goal Creatinine. Due on due Goal OARS. Due on due Goal Height. Due on d ue Goal UDT. Due on due Goal HPV. Due on due Goal CT-Colonography. Due on due Goal FIT-DNA. Due on due Goal Unhealthy drug u se screening. Due on due Goal Update Social Hi story. Due on due Goal Zoster vaccine ( 1st). Due on due Goal PHQ-9. Due on du e Goal Review Allergy List. Due on due Goal FIT. Due on due Goal Lipid panel. Due on due Goal Tobacco Use. Due on due Goal Hepatitis C scre ening. Due on due Goal Weight. Due on d ue Goal Medication Recon ciliation. Due on due Goal BOILER/CHILLER TECHNICIAN Scanned. Due on due Goal Review Allergy List. Due on due Goal UDT. Due on due Goal SOCCER COMMENTATOR Paperwork. Due on due Goal Weight. Due on d ue Goal AST (SGOT). Due on due Goal Medication Recon ciliation. Due on due Goal Unhealthy drug u se screening. Due on due Goal Order Annual PT. Due on due Goal ALT (SGPT). Due on due Goal FIT-DNA. Due on due Goal CT-Colonography. Due on due Goal Height. Due on d ue Goal Update Social Hi story. Due on due Goal Tobacco Use. Due on due Goal Lipid panel. Due on due Goal PHQ-9. Due on du e Goal Hepatitis C scre ening. Due on due Goal Zoster vaccine ( 1st). Due on due Goal Creatinine. Due on due Goal HPV. Due on due Goal OARS. Due on due Goal FIT. Due on due Goal ALT (SGPT). Due on due Goal UDT. Due on due Goal BOILER/CHILLER TECHNICIAN Scanned. Due on due Goal Hepatitis C scre ening. Due on due Goal Weight. Due on d ue Goal OARS. Due on due Goal Update Social TappnGo story. Due on due Goal Medication Recon ciliation. Due on due Goal Order Annual PT. Due on due Goal Creatinine. Due on due Goal AST (SGOT). Due on due Goal SOCCER COMMENTATOR Paperwork. Due on due Goal FIT-DNA. Due on due Goal PHQ-9. Due on du e Goal HPV. Due on due Goal Height. Due on d ue Goal CT-Colonography. Due on due Goal Unhealthy drug u se screening. Due on due Goal Review Allergy List. Due on due Goal Lipid panel. Due on due Goal FIT. Due on due Goal Zoster vaccine ( ). Due on due Goal Tobacco Use. Due on due Goal SOCCER COMMENTATOR Paperwork. Due on due Goal OARS. Due on due Goal Zoster vaccine ( ). Due on due Goal Medication Recon ciliation. Due on due Goal Order Annual PT. Due on due Goal CT-Colonography. Due on due Goal Weight. Due on d ue Goal PHQ-9. Due on du e Goal Height. Due on d ue Goal Update Social Hi story. Due on due Goal Unhealthy drug u se screening. Due on due Goal Review Allergy List. Due on due Goal FIT-DNA. Due on due Goal UDT. Due on due Goal Hepatitis C scre ening. Due on due Goal HPV. Due on due Goal Creatinine. Due on due Goal Lipid panel. Due on due Goal BOILER/CHILLER TECHNICIAN Scanned. Due on due Goal Tobacco Use. Due on due Goal FIT. Due on due Goal ALT (SGPT). Due on due Goal AST (SGOT). Due on due Goal SOCCER COMMENTATOR Paperwork. Due on due Goal Weight. Due on d ue Goal FIT-DNA. Due on due Goal OARS. Due on due Goal BOILER/CHILLER TECHNICIAN Scanned. Due on due Goal Unhealthy drug u se screening. Due on due Goal FIT. Due on due Goal Tobacco Use. Due on due Goal Review Allergy List. Due on due Goal AST (SGOT). Due on due Goal Lipid panel. Due on due Goal Update Social Hi story. Due on due Goal PHQ-9. Due on du e Goal Height. Due on d ue Goal CT-Colonography. Due on due Goal ALT (SGPT). Due on due Goal UDT. Due on due Goal Creatinine. Due on due Goal Medication Recon ciliation. Due on due Goal Hepatitis C scre ening. Due on due Goal Order Annual PT. Due on due Goal HPV. Due on due Goal Zoster vaccine ( ). Due on due Goal Lifestyle education regardin g diet completed Goal Order Annual PT. Due on due Goal BOILER/CHILLER TECHNICIAN Scanned. Due on due Goal Review Allergy List. Due on due Goal Weight. Due on d ue Goal Update Social Hi story. Due on due Goal Lipid panel. Due on due Goal SOCCER COMMENTATOR Paperwork. Due on due Goal AST (SGOT). Due on due Goal OARS. Due on due Goal Height. Due on d ue Goal Tobacco Use. Due on due Goal Medication Recon ciliation. Due on due Goal Unhealthy drug u se screening. Due on due Goal HPV. Due on due Goal Zoster vaccine ( ). Due on due Goal FIT-DNA. Due on due Goal Creatinine. Due on due Goal Hepatitis C scre ening. Due on due Goal ALT (SGPT). Due on [address]-Colonography. Due on due Goal FIT. Due on due Goal UDT. Due on due Goal PHQ-9. Due on du e Goal BOILER/CHILLER TECHNICIAN Scanned. Due on due Goal Unhealthy drug u se screening. Due on due Goal Weight. Due on d ue Goal HPV. Due on due Goal OARS. Due on due Goal Medication Recon ciliation. Due on due Goal UDT. Due on due Goal FIT. Due on due Goal FIT-DNA. Due on due Goal Update Social Hi story. Due on due Goal Tobacco Use. Due on due Goal Lipid panel. Due on due Goal PHQ-9. Due on du e Goal CT-Colonography. Due on due Goal AST (SGOT). Due on due Goal SOCCER COMMENTATOR Paperwork. Due on due Goal Zoster vaccine ( 1st). Due on due Goal Height. Due on d ue Goal Review Allergy List. Due on due Goal Hepatitis C scre ening. Due on due Goal Order Annual PT. Due on due Goal Creatinine. Due on due Goal ALT (SGPT). Due on due Goal BOILER/CHILLER TECHNICIAN Scanned. Due on due Goal ALT (SGPT). Due on due Goal AST (SGOT). Due on due Goal Creatinine. Due on due Goal OARS. Due on due Goal UDT. Due on due Goal Order Annual PT. Due on due Goal SOCCER COMMENTATOR Paperwork. Due on due Goal Zoster vaccine ( 1st). Due on due Goal Height. Due on d ue Goal CT-Colonography. Due on due Goal Tobacco Use. Due on due Goal Lipid panel. Due on due Goal Hepatitis C scre ening. Due on due Goal Review Allergy List. Due on due Goal FIT-DNA. Due on due Goal Unhealthy drug u se screening. Due on due Goal HPV. Due on due Goal Weight. Due on d ue Goal Update Social Hi story. Due on due Goal FIT. Due on due Goal Medication Recon ciliation. Due on due Goal PHQ-9. Due on du e Goal SOCCER COMMENTATOR Paperwork. Due on due Goal HPV. Due on due Goal ALT (SGPT). Due on due Goal Update Social Hi story. Due on due Goal Tobacco Use. Due on due Goal PHQ-9. Due on du e Goal Height. Due on d ue Goal Hepatitis C scre ening. Due on due Goal Zoster vaccine ( 1st). Due on due Goal CT-Colonography. Due on due Goal BOILER/CHILLER TECHNICIAN Scanned. Due on due Goal UDT. Due on due Goal Medication Recon ciliation. Due on due Goal Lipid panel. Due on due Goal OARS. Due on due Goal FIT-DNA. Due on due Goal Order Annual PT. Due on due Goal Creatinine. Due on due Goal AST (SGOT). Due on due Goal Unhealthy drug u se screening. Due on due Goal Review Allergy List. Due on due Goal FIT. Due on due Goal Weight. Due on d ue Goal Order Annual PT. Due on due Goal ALT (SGPT). Due on due Goal OARS. Due on due Goal Weight. Due on d ue Goal Lipid panel. Due on due Goal FIT-DNA. Due on due Goal Update Social Hi story. Due on due Goal UDT. Due on due Goal Creatinine. Due on due Goal AST (SGOT). Due on due Goal Height. Due on d ue Goal Zoster vaccine ( 1st). Due on due Goal Unhealthy drug u se screening. Due on due Goal BOILER/CHILLER TECHNICIAN Scanned. Due on due Goal Medication Recon ciliation. Due on due Goal CT-Colonography. Due on due Goal FIT. Due on due Goal Tobacco Use. Due on due Goal SOCCER COMMENTATOR Paperwork. Due on due Goal Review Allergy List. Due on due Goal Hepatitis C scre ening. Due on due Goal PHQ-9. Due on du e Goal HPV. Due on due Goal AST (SGOT). Due on due Goal OARS. Due on due Goal Creatinine. Due on due Goal Order Annual PT. Due on due Goal ALT (SGPT). Due on due Goal SOCCER COMMENTATOR Paperwork. Due on due Goal UDT. Due on due Goal Height. Due on d ue Goal Medication Recon ciliation. Due on due Goal Tobacco Use. Due on due Goal Lipid panel. Due on due Goal FIT-DNA. Due on due Goal PHQ-9. Due on du e Goal Review Allergy List. Due on due Goal HPV. Due on due Goal Weight. Due on d ue Goal Update Social Hi story. Due on due Goal BOILER/CHILLER TECHNICIAN Scanned. Due on due Goal Zoster vaccine ( ). Due on due Goal FIT. Due on due Goal CT-Colonography. Due on due Goal Unhealthy drug u se screening. Due on due Goal Hepatitis C scre ening. Due on due Goal Medication Recon ciliation. Due on due Goal ALT (SGPT). Due on due Goal UDT. Due on due Goal Zoster vaccine ( ). Due on due Goal FIT. Due on due Goal Hepatitis C scre ening. Due on due Goal OARS. Due on due Goal AST (SGOT). Due on due Goal SOCCER COMMENTATOR Paperwork. Due on due Goal Tobacco Use. Due on due Goal Creatinine. Due on due Goal BOILER/CHILLER TECHNICIAN Scanned. Due on due Goal Height. Due on d ue Goal Weight. Due on d ue Goal Unhealthy drug u se screening. Due on due Goal Order Annual PT. Due on due Goal Review Allergy List. Due on due Goal HPV. Due on due Goal Update Social Hi story. Due on due Goal FIT-DNA. Due on due Goal Lipid panel. Due on due Goal PHQ-9. Due on du e Goal CT-Colonography. Due on due Goal UDT. Due on due Goal OARS. Due on due Goal ALT (SGPT). Due on due Goal SOCCER COMMENTATOR Paperwork. Due on due Goal BOILER/CHILLER TECHNICIAN Scanned. Due on due Goal Order Annual PT. Due on due Goal AST (SGOT). Due on due Goal Weight. Due on d ue Goal Medication Recon ciliation. Due on due Goal FIT. Due on due Goal Unhealthy drug u se screening. Due on due Goal Hepatitis C scre ening. Due on due Goal Creatinine. Due on due Goal Zoster vaccine ( 1st). Due on due Goal Tobacco Use. Due on due Goal Height. Due on d ue Goal FIT-DNA. Due on due Goal CT-Colonography. Due on due Goal HPV. Due on due Goal Review Allergy List. Due on due Goal Update Social Hi story. Due on due Goal Lipid panel. Due on due Goal PHQ-9. Due on du e Goal Creatinine. Due on due Goal BOILER/CHILLER TECHNICIAN Scanned. Due on due Goal SOCCER COMMENTATOR Paperwork. Due on due Goal AST (SGOT). Due on due Goal OARS. Due on due Goal ALT (SGPT). Due on due Goal UDT. Due on due Goal Order Annual PT. Due on due Goal Unhealthy drug u se screening. Due on due Goal PHQ-9. Due on du e Goal FIT-DNA. Due on due Goal Tobacco Use. Due on due Goal CT-Colonography. Due on due Goal FIT. Due on due Goal Medication Recon ciliation. Due on due Goal Weight. Due on d ue Goal Hepatitis C scre ening. Due on due Goal Zoster vaccine ( 1st). Due on due Goal Lipid panel. Due on due Goal HPV. Due on due Goal Height. Due on d ue Goal Review Allergy List. Due on due Goal Update Social Hi story. Due on due Goal AST (SGOT). Due on due Goal Creatinine. Due on due Goal Order Annual PT. Due on due Goal OARS. Due on due Goal UDT. Due on due Goal ALT (SGPT). Due on due Goal SOCCER COMMENTATOR Paperwork. Due on due Goal BOILER/CHILLER TECHNICIAN Scanned. Due on due Goal FIT. Due on due Goal Review Allergy List. Due on due Goal FIT-DNA. Due on due Goal PHQ-9. Due on du e Goal Tobacco Use. Due on due Goal Hepatitis C scre ening. Due on due Goal Update Social Hi story. Due on due Goal Weight. Due on d ue Goal Height. Due on d ue Goal Medication Recon ciliation. Due on due Goal Zoster vaccine ( ). Due on due Goal HPV. Due on due Goal CT-Colonography. Due on due Goal Unhealthy drug u se screening. Due on due Goal Lipid panel. Due on due Goal PHQ-9. Due on du e Goal ALT (SGPT). Due on due Goal UDT. Due on due Goal FIT. Due on due Goal Lipid panel. Due on due Goal FIT-DNA. Due on due Goal Review Allergy List. Due on due Goal OARS. Due on due Goal Order Annual PT. Due on due Goal CT-Colonography. Due on due Goal BOILER/CHILLER TECHNICIAN Scanned. Due on due Goal HPV. Due on due Goal Creatinine. Due on due Goal AST (SGOT). Due on due Goal Height. Due on d ue Goal SOCCER COMMENTATOR Paperwork. Due on due Goal Tobacco Use. Due on due Goal Update Social Hi story. Due on due Goal Zoster vaccine ( 1st). Due on due Goal Weight. Due on d ue Goal Unhealthy drug u se screening. Due on due Goal Medication Recon ciliation. Due on due Goal Hepatitis C scre ening. Due on due Goal BOILER/CHILLER TECHNICIAN Scanned. Due on due Goal PHQ-9. Due on du e Goal Lipid panel. Due on due Goal Height. Due on d ue Goal Order Annual PT. Due on due Goal SOCCER COMMENTATOR Paperwork. Due on due Goal FIT-DNA. Due on due Goal CT-Colonography. Due on due Goal FIT. Due on due Goal ALT (SGPT). Due on due Goal HPV. Due on due Goal Creatinine. Due on due Goal Review Allergy List. Due on due Goal UDT. Due on due Goal Zoster vaccine ( 1st). Due on due Goal Tobacco Use. Due on due Goal Update Social Hi story. Due on due Goal AST (SGOT). Due on due Goal Hepatitis C scre ening. Due on due Goal Medication Recon ciliation. Due on due Goal Unhealthy drug u se screening. Due on due Goal OARS. Due on due Goal Weight. Due on d ue Goal AST (SGOT). Due on due Goal ALT (SGPT). Due on due Goal Hepatitis C scre ening. Due on due Goal BOILER/CHILLER TECHNICIAN Scanned. Due on due Goal UDT. Due on due Goal SOCCER COMMENTATOR Paperwork. Due on due Goal Zoster vaccine ( 1st). Due on due Goal OARS. Due on due Goal HPV. Due on due Goal PHQ-9. Due on du e Goal Lipid panel. Due on due Goal Tobacco Use. Due on due Goal Creatinine. Due on due Goal Weight. Due on d ue Goal Order Annual PT. Due on due Goal Unhealthy drug u se screening. Due on due Goal Height. Due on d ue Goal FIT-DNA. Due on due Goal Review Allergy List. Due on due Goal FIT. Due on due Goal CT-Colonography. Due on due Goal Update Social Hi story. Due on due Goal Medication Recon ciliation. Due on due Goal Lipid panel. Due on due Goal Zoster vaccine ( ). Due on due Goal PHQ-9. Due on du e Goal OARS. Due on due Goal HPV. Due on due Goal Weight. Due on d ue Goal Hepatitis C scre ening. Due on due Goal Tobacco Use. Due on due Goal UDT. Due on due Goal Medication Recon ciliation. Due on due Goal Unhealthy drug u se screening. Due on due Goal Height. Due on d ue Goal Order Annual PT. Due on due Goal SOCCER COMMENTATOR Paperwork. Due on due Goal Creatinine. Due on due Goal BOILER/CHILLER TECHNICIAN Scanned. Due on due Goal Review Allergy List. Due on due Goal CT-Colonography. Due on due Goal FIT-DNA. Due on due Goal Update Social Hi story. Due on due Goal AST (SGOT). Due on due Goal ALT (SGPT). Due on due Goal FIT. Due on due Goal ALT (SGPT). Due on due Goal Order Annual PT. Due on due Goal Creatinine. Due on due Goal BOILER/CHILLER TECHNICIAN Scanned. Due on due Goal SOCCER COMMENTATOR Paperwork. Due on due Goal Weight. Due on d ue Goal Unhealthy drug u se screening. Due on due Goal Medication Recon ciliation. Due on due Goal Tobacco Use. Due on due Goal AST (SGOT). Due on due Goal Update Social Hi story. Due on due Goal Zoster vaccine ( 1st). Due on due Goal FIT-DNA. Due on due Goal Lipid panel. Due on due Goal FIT. Due on due Goal Height. Due on d ue Goal CT-Colonography. Due on due Goal UDT. Due on due Goal OARS. Due on due Goal HPV. Due on due Goal Hepatitis C scre ening. Due on due Goal Review Allergy List. Due on due Goal PHQ-9. Due on du e Goal AST (SGOT). Due on due Goal UDT. Due on due Goal ALT (SGPT). Due on due Goal Order Annual PT. Due on due Goal FIT. Due on due Goal BOILER/CHILLER TECHNICIAN Scanned. Due on due Goal Creatinine. Due on due Goal SOCCER COMMENTATOR Paperwork. Due on due Goal Tobacco Use. Due on due Goal Update Social Hi story. Due on due Goal Lipid panel. Due on due Goal OARS. Due on due Goal Review Allergy List. Due on due Goal FIT-DNA. Due on due Goal Hepatitis C scre ening. Due on due Goal Unhealthy drug u se screening. Due on due Goal HPV. Due on due Goal CT-Colonography. Due on due Goal Zoster vaccine ( 1st). Due on due Goal Height. Due on d ue Goal PHQ-9. Due on du e Goal Medication Recon ciliation. Due on due Goal Weight. Due on d ue Goal AST (SGOT). Due on due Goal SOCCER COMMENTATOR Paperwork. Due on due Goal Order Annual PT. Due on due Goal BOILER/CHILLER TECHNICIAN Scanned. Due on due Goal ALT (SGPT). Due on due Goal OARS. Due on due Goal CT-Colonography. Due on due Goal Lipid panel. Due on due Goal HPV. Due on due Goal UDT. Due on due Goal Creatinine. Due on due Goal Hepatitis C scre ening. Due on due Goal Weight. Due on d ue Goal Height. Due on d ue Goal PHQ-9. Due on du e Goal FIT. Due on due Goal Unhealthy drug u se screening. Due on due Goal Review Allergy List. Due on due Goal Update Social Hi story. Due on due Goal Tobacco Use. Due on due Goal Medication Recon ciliation. Due on due Goal FIT-DNA. Due on due Goal Zoster vaccine ( 1st). Due on due Goal Lipid panel. Due on due Goal SOCCER COMMENTATOR Paperwork. Due on due Goal CT-Colonography. Due on due Goal Order Annual PT. Due on due Goal AST (SGOT). Due on due Goal BOILER/CHILLER TECHNICIAN Scanned. Due on due Goal HPV. Due on due Goal Hepatitis C scre ening. Due on due Goal PHQ-9. Due on du e Goal Medication Recon ciliation. Due on due Goal FIT-DNA. Due on due Goal UDT. Due on due Goal Tobacco Use. Due on due Goal Update Social Hi story. Due on due Goal Creatinine. Due on due Goal FIT. Due on due Goal Unhealthy drug u se screening. Due on due Goal ALT (SGPT). Due on due Goal OARS. Due on due Goal Height. Due on d ue Goal Weight. Due on d ue Goal Zoster vaccine ( 1st). Due on due Goal Review Allergy List. Due on due Goal Tobacco cessation counseling completed Goal ALT (SGPT). Due on due Goal UDT. Due on due Goal BOILER/CHILLER TECHNICIAN Scanned. Due on due Goal Medication Recon ciliation. Due on due Goal Unhealthy drug u se screening. Due on due Goal Height. Due on d ue Goal HPV. Due on due Goal FIT-DNA. Due on due Goal Lipid panel. Due on due Goal FIT. Due on due Goal Zoster vaccine ( 1st). Due on due Goal SOCCER COMMENTATOR Paperwork. Due on due Goal Creatinine. Due on due Goal Review Allergy List. Due on due Goal Weight. Due on d ue Goal CT-Colonography. Due on due Goal Hepatitis C scre ening. Due on due Goal Update Social Hi story. Due on due Goal Order Annual PT. Due on due Goal AST (SGOT). Due on due Goal OARS. Due on due Goal PHQ-9. Due on du e Goal Tobacco Use. Due on due Goal UDT. Due on due Goal Zoster vaccine ( 1st). Due on due Goal Height. Due on d ue Goal AST (SGOT). Due on due Goal BOILER/CHILLER TECHNICIAN Scanned. Due on due Goal PHQ-9. Due on du e Goal Weight. Due on d ue Goal Review Allergy List. Due on due Goal Lipid panel. Due on due Goal FIT. Due on due Goal SOCCER COMMENTATOR Paperwork. Due on due Goal CT-Colonography. Due on due Goal Hepatitis C scre ening. Due on due Goal OARS. Due on due Goal Update Social Hi story. Due on due Goal HPV. Due on due Goal Creatinine. Due on due Goal Medication Recon ciliation. Due on due Goal Tobacco Use. Due on due Goal ALT (SGPT). Due on due Goal Unhealthy drug u se screening. Due on due Goal Order Annual PT. Due on due Goal FIT-DNA. Due on due Goal OARS. Due on due Goal Order Annual PT. Due on due Goal Weight. Due on d ue Goal Update Social Hi story. Due on due Goal FIT-DNA. Due on due Goal Zoster vaccine ( 1st). Due on due Goal PHQ-9. Due on du e Goal BOILER/CHILLER TECHNICIAN Scanned. Due on due Goal Review Allergy List. Due on due Goal AST (SGOT). Due on due Goal Unhealthy drug u se screening. Due on due Goal Hepatitis C scre ening. Due on due Goal ALT (SGPT). Due on due Goal Lipid panel. Due on due Goal Height. Due on d ue Goal Medication Recon ciliation. Due on due Goal Creatinine. Due on due Goal UDT. Due on due Goal Tobacco Use. Due on due Goal CT-Colonography. Due on due Goal HPV. Due on due Goal SOCCER COMMENTATOR Paperwork. Due on due Goal FIT. Due on due Goal FIT. Due on due Goal SOCCER COMMENTATOR Paperwork. Due on due Goal Medication Recon ciliation. Due on due Goal Creatinine. Due on due Goal Tobacco Use. Due on due Goal AST (SGOT). Due on due Goal Order Annual PT. Due on due Goal CT-Colonography. Due on due Goal Update Social Hi story. Due on due Goal Review Allergy List. Due on due Goal Weight. Due on d ue Goal PHQ-9. Due on du e Goal OARS. Due on due Goal HPV. Due on due Goal Height. Due on d ue Goal Unhealthy drug u se screening. Due on due Goal BOILER/CHILLER TECHNICIAN Scanned. Due on due Goal UDT. Due on due Goal Hepatitis C scre ening. Due on due Goal Zoster vaccine ( 1st). Due on due Goal ALT (SGPT). Due on due Goal Lipid panel. Due on due Goal FIT-DNA. Due on due Goal FIT-DNA. Due on due Goal Order Annual PT. Due on due Goal Unhealthy drug u se screening. Due on due Goal FIT. Due on due Goal OARS. Due on due Goal SOCCER COMMENTATOR Paperwork. Due on due Goal AST (SGOT). Due on due Goal ALT (SGPT). Due on due Goal Zoster vaccine ( 1st). Due on due Goal Tobacco Use. Due on due Goal Height. Due on d ue Goal CT-Colonography. Due on due Goal BOILER/CHILLER TECHNICIAN Scanned. Due on due Goal Weight. Due on d ue Goal UDT. Due on due Goal Creatinine. Due on due Goal Medication Recon ciliation. Due on due Goal Hepatitis C scre ening. Due on due Goal HPV. Due on due Goal Lipid panel. Due on due Goal PHQ-9. Due on du e Goal Review Allergy List. Due on due Goal Update Social Hi story. Due on due Goal Creatinine. Due on due Goal BOILER/CHILLER TECHNICIAN Scanned. Due on due Goal AST (SGOT). Due on due Goal SOCCER COMMENTATOR Paperwork. Due on due Goal Medication Recon ciliation. Due on due Goal Height. Due on d ue Goal CT-Colonography. Due on due Goal Update Social Hi story. Due on due Goal PHQ-9. Due on du e Goal Unhealthy drug u se screening. Due on due Goal Review Allergy List. Due on due Goal HPV. Due on due Goal FIT. Due on due Goal Hepatitis C scre ening. Due on due Goal ALT (SGPT). Due on due Goal OARS. Due on due Goal Weight. Due on d ue Goal UDT. Due on due Goal Tobacco Use. Due on due Goal Lipid panel. Due on due Goal FIT-DNA. Due on due Goal Order Annual PT. Due on due Goal Zoster vaccine ( 1st). Due on due Goal Creatinine. Due on due Goal BOILER/CHILLER TECHNICIAN Scanned. Due on due Goal Order Annual PT. Due on due Goal UDT. Due on due Goal ALT (SGPT). Due on due Goal CT-Colonography. Due on due Goal Tobacco Use. Due on due Goal OARS. Due on due Goal Zoster vaccine ( 1st). Due on due Goal FIT-DNA. Due on due Goal Medication Recon ciliation. Due on due Goal Update Social Hi story. Due on due Goal Unhealthy drug u se screening. Due on due Goal FIT. Due on due Goal Height. Due on d ue Goal Hepatitis C scre ening. Due on due Goal Lipid panel. Due on due Goal Review Allergy List. Due on due Goal Weight. Due on d ue Goal AST (SGOT). Due on due Goal HPV. Due on due Goal SOCCER COMMENTATOR Paperwork. Due on due Goal PHQ-9. Due on du e Goal CT-Colonography. Due on due Goal Tobacco Use. Due on due Goal Order Annual PT. Due on due Goal Creatinine. Due on due Goal UDT. Due on due Goal Lipid panel. Due on due Goal Medication Recon ciliation. Due on due Goal Unhealthy drug u se screening. Due on due Goal Weight. Due on d ue Goal Update Social Hi story. Due on due Goal ALT (SGPT). Due on due Goal BOILER/CHILLER TECHNICIAN Scanned. Due on due Goal FIT. Due on due Goal Hepatitis C scre ening. Due on due Goal Review Allergy List. Due on due Goal Height. Due on d ue Goal PHQ-9. Due on du e Goal HPV. Due on due Goal FIT-DNA. Due on due Goal OARS. Due on due Goal SOCCER COMMENTATOR Paperwork. Due on due Goal Zoster vaccine ( 1st). Due on due Goal AST (SGOT). Due on due Goal OARS. Due on due Goal Creatinine. Due on due Goal UDT. Due on due Goal Order Annual PT. Due on due Goal SOCCER COMMENTATOR Paperwork. Due on due Goal ALT (SGPT). Due on due Goal BOILER/CHILLER TECHNICIAN Scanned. Due on due Goal AST (SGOT). Due on due Goal Unhealthy drug u se screening. Due on due Goal Weight. Due on d ue Goal Tobacco Use. Due on due Goal Hepatitis C scre ening. Due on due Goal Review Allergy List. Due on due Goal PHQ-9. Due on du e Goal Lipid panel. Due on due Goal FIT. Due on due Goal Height. Due on d ue Goal CT-Colonography. Due on due Goal Update Social Hi story. Due on due Goal FIT-DNA. Due on due Goal HPV. Due on due Goal Medication Recon ciliation. Due on due Goal Zoster vaccine ( ). Due on due Goal ALT (SGPT). Due on due Goal OARS. Due on due Goal Order Annual PT. Due on due Goal BOILER/CHILLER TECHNICIAN Scanned. Due on due Goal UDT. Due on due Goal Update Social Hi story. Due on due Goal Creatinine. Due on due Goal AST (SGOT). Due on due Goal SOCCER COMMENTATOR Paperwork. Due on due Goal PHQ-9. Due on du e Goal Review Allergy List. Due on due Goal Lipid panel. Due on due Goal FIT-DNA. Due on due Goal Zoster vaccine ( 1st). Due on due Goal Weight. Due on d ue Goal Unhealthy drug u se screening. Due on due Goal Height. Due on d ue Goal Medication Recon ciliation. Due on due Goal FIT. Due on due Goal Hepatitis C scre ening. Due on due Goal HPV. Due on due Goal CT-Colonography. Due on due Goal Tobacco Use. Due on due Goal Review Allergy List. Due on due Goal ALT (SGPT). Due on due Goal UDT. Due on due Goal Medication Recon ciliation. Due on due Goal SOCCER COMMENTATOR Paperwork. Due on due Goal Update Social Hi story. Due on due Goal Creatinine. Due on due Goal Weight. Due on d ue Goal OARS. Due on due Goal AST (SGOT). Due on due Goal Order Annual PT. Due on due Goal BOILER/CHILLER TECHNICIAN Scanned. Due on due Goal Unhealthy drug u se screening. Due on due Goal FIT. Due on due Goal PHQ-9. Due on du e Goal Height. Due on d ue Goal CT-Colonography. Due on due Goal FIT-DNA. Due on due Goal Hepatitis C scre ening. Due on due Goal HPV. Due on due Goal Tobacco Use. Due on due Goal Lipid panel. Due on due Goal Zoster vaccine ( 1st). Due on due Goal ALT (SGPT). Due on due Goal Medication Recon ciliation. Due on due Goal OARS. Due on due Goal Update Social Hi story. Due on due Goal BOILER/CHILLER TECHNICIAN Scanned. Due on due Goal Creatinine. Due on due Goal UDT. Due on due Goal Order Annual PT. Due on due Goal SOCCER COMMENTATOR Paperwork. Due on due Goal Review Allergy List. Due on due Goal PHQ-9. Due on du e Goal Tobacco Use. Due on due Goal Height. Due on d ue Goal AST (SGOT). Due on due Goal Weight. Due on d ue Goal ALT (SGPT). Due on due Goal Height. Due on d ue Goal Medication Recon ciliation. Due on due Goal UDT. Due on due Goal Update Social Hi story. Due on due Goal Creatinine. Due on due Goal Tobacco Use. Due on due Goal SOCCER COMMENTATOR Paperwork. Due on due Goal Order Annual PT. Due on due Goal Weight. Due on d ue Goal AST (SGOT). Due on due Goal BOILER/CHILLER TECHNICIAN Scanned. Due on due Goal OARS. Due on due Goal Review Allergy List. Due on due Goal PHQ-9. Due on du e Goal UDT. Due on due Goal Creatinine. Due on due Goal OARS. Due on due Goal BOILER/CHILLER TECHNICIAN Scanned. Due on due Goal ALT (SGPT). Due on due Goal AST (SGOT). Due on due Goal Order Annual PT. Due on due Goal SOCCER COMMENTATOR Paperwork. Due on due Goal PHQ-9. Due on du e Goal Review Allergy List. Due on due Goal Height. Due on d ue Goal Tobacco Use. Due on due Goal Update Social Hi story. Due on due Goal Medication Recon ciliation. Due on due Goal Weight. Due on d ue Goal Order Annual PT. Due on due Goal Review Allergy List. Due on due Goal UDT. Due on due Goal OARS. Due on due Goal Creatinine. Due on due Goal Medication Recon ciliation. Due on due Goal SOCCER COMMENTATOR Paperwork. Due on due Goal PHQ-9. Due on du e Goal ALT (SGPT). Due on due Goal Tobacco Use. Due on due Goal AST (SGOT). Due on due Goal Height. Due on d ue Goal Weight. Due on d ue Goal BOILER/CHILLER TECHNICIAN Scanned. Due on due Goal Update Social Hi story. Due on due Goal PHQ-9. Due on du e Goal Update Social Hi story. Due on due Goal Review Allergy List. Due on due Goal BOILER/CHILLER TECHNICIAN Scanned. Due on due Goal ALT (SGPT). Due on due Goal SOCCER COMMENTATOR Paperwork. Due on due Goal Order Annual PT. Due on due Goal Creatinine. Due on due Goal Height. Due on d ue Goal UDT. Due on due Goal OARS. Due on due Goal AST (SGOT). Due on due Goal Tobacco Use. Due on due Goal Weight. Due on d ue Goal Medication Recon ciliation. Due on due Goal OARS. Due on due Goal Creatinine. Due on due Goal PHQ-9. Due on du e Goal Tobacco Use. Due on due Goal BOILER/CHILLER TECHNICIAN Scanned. Due on due Goal ALT (SGPT). Due on due Goal Update Social Hi story. Due on due Goal AST (SGOT). Due on due Goal Order Annual PT. Due on due Goal UDT. Due on due Goal Review Allergy List. Due on due Goal Height. Due on d ue Goal SOCCER COMMENTATOR Paperwork. Due on due Goal Medication Recon ciliation. Due on due Goal Weight. Due on d ue Goal UDT. Due on due Goal PHQ-9. Due on du e Goal Update Social Hi story. Due on due Goal Medication Recon ciliation. Due on due Goal Review Allergy List. Due on due Goal Height. Due on d ue Goal AST (SGOT). Due on due Goal Order Annual PT. Due on due Goal BOILER/CHILLER TECHNICIAN Scanned. Due on due Goal Creatinine. Due on due Goal OARS. Due on due Goal Tobacco Use. Due on due Goal SOCCER COMMENTATOR Paperwork. Due on due Goal ALT (SGPT). Due on due Goal Weight. Due on d ue Goal OARS. Due on due Goal ALT (SGPT). Due on due Goal AST (SGOT). Due on due Goal Order Annual PT. Due on due Goal UDT. Due on due Goal SOCCER COMMENTATOR Paperwork. Due on due Goal Review Allergy List. Due on due Goal Tobacco Use. Due on due Goal Weight. Due on d ue Goal PHQ-9. Due on du e Goal Creatinine. Due on due Goal Medication Recon ciliation. Due on due Goal Height. Due on d ue Goal BOILER/CHILLER TECHNICIAN Scanned. Due on due Goal Update Social Hi story. Due on due Goal OARS. Due on due Goal AST (SGOT). Due on due Goal UDT. Due on due Goal Order Annual PT. Due on due Goal ALT (SGPT). Due on due Goal Review Allergy List. Due on due Goal BOILER/CHILLER TECHNICIAN Scanned. Due on due Goal SOCCER COMMENTATOR Paperwork. Due on due Goal Medication Recon ciliation. Due on due Goal Height. Due on d ue Goal Tobacco Use. Due on due Goal Creatinine. Due on due Goal Update Social Hi story. Due on due Goal PHQ-9. Due on du e Goal Weight. Due on d ue Goal Order Annual PT. Due on due Goal OARS. Due on due Goal UDT. Due on due Goal ALT (SGPT). Due on due Goal SOCCER COMMENTATOR Paperwork. Due on due Goal Creatinine. Due on due Goal BOILER/CHILLER TECHNICIAN Scanned. Due on due Goal AST (SGOT). Due on due Goal Tobacco Use. Due on due Goal Review Allergy List. Due on due Goal Medication Recon ciliation. Due on due Goal Update Social Hi story. Due on due Goal Weight. Due on d ue Goal Height. Due on d ue Goal PHQ-9. Due on du e Goal ALT (SGPT). Due on due Goal Creatinine. Due on due Goal AST (SGOT). Due on due Goal Medication Recon ciliation. Due on due Goal PHQ-9. Due on du e Goal Order Annual PT. Due on due Goal OARS. Due on due Goal Update Social Hi story. Due on due Goal Review Allergy List. Due on due Goal BOILER/CHILLER TECHNICIAN Scanned. Due on due Goal UDT. Due on due Goal Tobacco Use. Due on due Goal Weight. Due on d ue Goal Height. Due on d ue Goal SOCCER COMMENTATOR Paperwork. Due on due Goal Order Annual PT. Due on due Goal Creatinine. Due on due Goal Height. Due on d ue Goal OARS. Due on due Goal ALT (SGPT). Due on due Goal AST (SGOT). Due on due Goal PHQ-9. Due on du e Goal Update Social Hi story. Due on due Goal BOILER/CHILLER TECHNICIAN Scanned. Due on due Goal UDT. Due on due Goal SOCCER COMMENTATOR Paperwork. Due on due Goal Tobacco Use. Due on due Goal Review Allergy List. Due on due Goal Medication Recon ciliation. Due on due Goal Weight. Due on d ue Goal Tobacco cessation counseling completed Goal Review Allergy List. Due on due Goal PHQ-9. Due on du e Goal Height. Due on d ue Goal UDT. Due on due Goal ALT (SGPT). Due on due Goal Update Social Hi story. Due on due Goal Tobacco Use. Due on due Goal Order Annual PT. Due on due Goal OARS. Due on due Goal Medication Recon ciliation. Due on due Goal AST (SGOT). Due on due Goal BOILER/CHILLER TECHNICIAN Scanned. Due on 021 due Goal SOCCER COMMENTATOR Paperwork. Due on due Goal Weight. Due on d ue Goal Creatinine. Due on due Referral Ordered: Vikas Somers -Allopathic & Osteopathic Physicians : Family Medicine (related to Chronic pain syndrome) ordered Referral Referred To: Vikas Somers [facility]
[address] [place], [address] [phone] Ordered: Referrals: Allopathic & Osteopathic Physicians : Family Medicine. Vikas Somers ordered Referral Ordered: Vikas Somers MD -Allopathic & Osteopathic Physicians : Family Medicine (related to Unilateral primary osteoarthritis, right knee) ordered Referral Ordered: Vikas Somers MD -Allopathic & Osteopathic Physicians : Family Medicine (related to Unilateral primary osteoarthritis, right knee) ordered Referral Referred To: Vikas Somers MD [facility]
[address] [place], [address] [phone] Ordered: Referrals: Allopathic & Osteopathic Physicians : Family Medicine. Vikas Somers MD ordered Referral Ordered: X-RAY EXAM OF KNEE, 3 Bilateral knee ordered Appointment Radha Benitez BOOKED Appointment Radha Benitez BOOKED Future Order: Lab Order ALT (SGP T) ([id number]), Collected on: , Sent on: Sent Future Order: Lab Order Creatini ne, Serum ([id number]), Collected on: , Sent on: Sent Future Order: Lab Order AST (SGO T) ([id number]), Collected on: , Sent on: Sent Future Order: Lab Order Complian ce Drug Analysis, Blood ([id number]), Collected on: , Sent on: Sent Future Order: Lab Order Drug Merced t Def 22+ Classes (G0483), Ordered on: Ordered Future Order: Lab Order COMPLIAN CE DRUG ANALYSIS, URINE, WITH MED REPORT ([id number]), Ordered on: Ordered Future Order: Lab Order Drug Merced t Def 22+ Classes ([id number]), Ordered on: Ordered History Of Present Illness Encounter Date Complaint History Of Prese nt Illness bilateral knee pain Duration: ch ronic. Severity level is 5. The problem is stable. Location: bilateral knee. Comments: Radha presents virtually for follow up and medication management in the setting of chronic BL knee pain (R<L). No new health concerns today.BL knee pain stable today.Currently managed on Suboxone 4-1mg BID. The medication provides 75-80% pain relief, does not cause significant side effects, increases the patient's daily activity level. Denies OIC or other SEs. No other concerns today. Widespread pain Severity level i s 5. Duration: chronic. Location of the pain is bilateral knee and back. The patient describes it as sharp and achy. Comments: Radha presents virtually for follow up and medication management in the setting of chronic BL knee pain (R<L). No new health concerns today.BL knee pain stable today.Currently managed on Suboxone 4-1mg BID. The medication provides 75-80% pain relief, does not cause significant side effects, increases the patient's daily activity level. Denies OIC or other SEs. No other concerns today. Comments: Radha presents for follow up and medication management in the setting of chronic BL knee pain (R<L). No new health concerns today.Inquires about cyst like papule on back of her R ear today; states it is painful when she presses on it.BL knee pain stable today altough L is worse. Pt denies wanting to pursue any procedures d/t previous procedures not being beneficial. States medication manages her pain very well, and does not feel the need to pursue any other interventions for the moment.Currently managed on Suboxone 4-1mg BID. The medication provides significant pain relief, does not cause significant side effects, increases the patient's daily activity level. Denies OIC or other SEs. No other concerns today. bilateral knee pain Duration: ch ronic. Severity level is 5. The problem is stable. Location: bilateral knee. Widespread pain Severity level i s 6. Duration: chronic. Location of the pain is lower back and bilateral knee. The problem is stable. Comments: Radha presents virtually via [employer] for follow up and medication management in the setting of chronic BL knee pain (R<L). No new health concerns today,Reports newer low back pain after endorsing a fall is stable today. Pt declines IT pump trial.BL knee pain stable today.Currently managed on Suboxone 4-1mg BID. The medication provides 75-80% pain relief, does not cause significant side effects, increases the patient's daily activity level. Denies OIC or other SEs. No other concerns today. Widespread pain Duration: chroni c. Location of the pain is lower back and bilateral knee. The problem is fluctuating. Comments: Radha presents virtually via [employer] as well as via phone call d/t connection issues. for follow up and medication management in the setting of hronic BL knee pain (R<L). Last seen at [facility] on 07/17/24. Reports new low back pain after endorsing a recent fall d/t reoccurring dizzy spells at night. Pt has seen PCP but was not given a reasoning as to why she experiences these.BL knee pain continues to be bothersome but pt is not interested in repeat genicular NBs d/t obtaining poor relief from them in the past.Currently managed on Suboxone 4-1mg BID. The medication provides 75-80% pain relief, does not cause significant side effects, increases the patient's daily activity level. Denies OIC or other SEs. No other concerns today. bilateral knee pain Duration: ch ronic. Severity level is 7-5. The problem is stable. Location: bilateral L>R. The pain is burning and sharp. The pain is aggravated by bending, walking, standing and reaching overhead. The pain is relieved by ice, pain/RX meds and sitting. Additional information: Pain affects housework, self care, and social activities. Comments: - Perfumer kay BL knee pain (R<L). Last seen at [facility] on 07/17/24. - S/p RIGHT genicular D-RFW in the past with limited benefit. - She is interested in pursuing the genicular RFA on her LEFT knee. - Currently prescribed Suboxone 4mg/1mg BID. Presents without medication d/t her stop date being 08/21/24. - She had been off of her medications for a few weeks as she had left her Suboxone in her son's vehicle and has not seen him in weeks. - Once she had acquired her Suboxone from her son's vehicle, she had resumed on them which lasted her up until today. - She is requesting a refill today. - Denies any side effects with current regimen. Comments: Radha is a 64 y/o female who presents via [employer] for virtual follow up and medication refill in the setting of BL knee pain (R<L). Pain has been stable this month.Started on Ozempic, making her feel sick. Symptoms include dizziness and nausea. Will consult with PCP. Reports current medication regimen provides 75-80% pain relief and allows for increased functionality. Continues to utilize Suboxone 4-1mg BID with significant benefit. Denies OIC or other side effects from current medication regimen. No other concerns today. Knee Pain Duration: chroni c. Severity level is 8. The problem is stable. Location: bilateral knee. Comments: Radha is a 64 y/o female who presents via [employer] for virtual follow up and medication refill in the setting of BL knee pain (R>L). Pain has been stable this month.Of note, patient recent started Ozempic.Reports current medication regimen provides 75-80% pain relief and allows for increased functionality. Continues to utilize Suboxone 4-1mg BID with significant benefit. Denies OIC or other side effects from current medication regimen. No other concerns today. bilateral knee pain Duration: ch ronic. Severity level is 7. Location: bilateral knee. The pain is relieved by pain/RX meds. Comments: Radha is a 64 y/o female who presents for follow up and medication refill in the setting of BL knee pain (R>L). Pain has been stable this month. Denies any new symptoms or changes.Reports current medication regimen provides 75% pain relief and allows for increased functionality. Continues to utilize Suboxone 4-1mg BID with significant benefit. Denies OIC or other side effects from current medication regimen. No other concerns today. bilateral knee pain Duration: ch ronic. Severity level is 6. Location: bilateral knee. The pain is aggravated by walking and housework. The pain is relieved by ice and pain/RX meds. bilateral knee pain Duration: ch ronic. Severity level is 6. It occurs constantly and is stable. Location: bilateral knee. The pain is relieved by pain/RX meds. Comments: Radha is a 63 y/o female who presents via [employer] for virtual follow up and medication refill in the setting of BL knee pain (R>L). Pain has been stable this month. Denies any new symptoms or changes. Remains disinterested in pursuing the IT pain pump trial.Reports current medication regimen provides 75-80% pain relief and allows for increased functionality. Continues to utilize Suboxone 4-1mg BID with significant benefit. Denies OIC or other side effects from current medication regimen. No other concerns today. Comments: Radha is a 63 y/o female who presents via [employer] for virtual follow up and medication refill in the setting of BL knee pain (R>L). Pain has been stable this month. Remains undecided about knee surgery due to being afraid.Reports current medication regimen provides 50% pain relief and allows for increased functionality. Continues to utilize Suboxone 4-1mg BID with moderate benefit. Denies OIC or other side effects from current medication regimen. No other concerns today. bilateral knee pain Duration: ch ronic. Severity level is 7. It occurs constantly and is stable. Location: bilateral knee. The pain is relieved by pain/RX meds. bilateral knee pain Duration: ch ronic. Severity level is 7. It occurs constantly and is stable. Location: bilateral (R>L). The pain is sharp. The pain is aggravated by climbing (and descending) stairs, movement, walking and prolonged positioning. The pain is relieved by ice and pain/RX meds. Comments: Radha presents in clinic today for a follow up and medication refill in the setting of BL knee pain (R>L). Her knee pain has remained stable since her KARSTEN. She has yet to f/u with her orthopedist. Reports current medication regimen provides ~50% pain relief and allows for increased functionality. Continues to utilize Suboxone 4-1mg BID. Denies OIC or other side effects from current medication regimen. No other concerns today. Comments: Radha is a 63 y/o female who presents via [employer] for virtual follow up and medication refill in the setting of BL knee pain (R>L). Her knee pain has remained the same since KARSTEN- has yet to f/u with an orthopedist. Reports current medication regimen provides ~50% pain relief and allows for increased functionality. Continues to utilize Suboxone 4-1mg BID. Denies OIC or other side effects from current medication regimen. No other concerns today. bilateral knee pain Duration: ch ronic. Severity level is 8. The problem is worsening. Location: bilateral knee. Comments: Radha is a 63 y/o female who presents via [employer] for virtual follow up and medication refill in the setting of BL knee pain (R>L). Pain has been stable this month. Had started PT at [facility] but was told there was nothing else they could do for her. Notes she was sent home with exercises.Of note, patient has been following up with dentistry for a toothache. She states they had prescribed her Extra Strength Tylenol and Amoxicillin.Reports current medication regimen provides 75-80% pain relief and allows for increased functionality. Continues to utilize Suboxone 4-1mg with significant benefit. Denies OIC or other side effects from current medication regimen. No other concerns today. bilateral knee pain Duration: ch ronic. Severity level is 8. It occurs constantly and is stable. Location: bilateral knee. The pain is relieved by pain/RX meds. Comments: Radha is a 63 y/o female who presents for follow up and medication refill in the setting of BL knee pain (R>L). Pain has been worse this month. R knee pain has been the most bothersome. Denies any swelling. Notes the L knee pain comes and goes while the R knee is constant.Have yet to start PT at [facility] but notes she has an upcoming appointment on 10/26/23. She states she is still hesitant about surgery and will consult with an orthopedic surgeon once she's ready to pursue.Reports current medication regimen provides significant pain relief and allows for increased functionality. Continues to utilize Suboxone 4-1mg with significant benefit. Denies OIC or other side effects from current medication regimen. No other concerns today. bilateral knee pain Duration: ch ronic. Severity level is 6. It occurs constantly and is worsening. Location: bilateral knee. The pain is burning and sharp. The pain is aggravated by climbing (and descending) stairs, movement, walking, standing, rising from sitting position and housework. The pain is relieved by ice, pain/RX meds and sitting. bilateral knee pain Duration: ch ronic. Severity level is 9/10. It occurs constantly and is worsening. Location: bilateral knee. Comments: Radha is a 63 y/o female who presents via [employer] for virtual follow up and medication refill in the setting of BL knee pain. Pain has been worse this month. Notes her left knee is most bothersome currently. Reports any pressure and weight on her knee causes severe pain, claiming pain exceeds 10/10.Notes she is considering going through with her knee surgery and inquires about how that will affect her medication management.Reports current medication regimen provides 75-80% pain relief and allows for increased functionality. Continues to utilize Suboxone 4-1mg with significant benefit. Notes she did not notice a difference in pain relief with the increased dosage, she attributes this to her increase in knee pain. Denies OIC or other side effects from current medication regimen. No other concerns today. Comments: Radha is a 63 y/o female who presents via [facility] for virtual follow up and medication refill in the setting of BL knee pain (R>L). Pain has been stable this month. Denies any new symptoms or changes.Reports current medication regimen provides 75-80% pain relief and allows for increased functionality. Continues to utilize Suboxone 2-0.5mg with significant benefit but inquires about an increase. Denies OIC or other side effects from current medication regimen. No other concerns today. bilateral knee pain Duration: ch ronic. Severity level is 9. It occurs constantly and is stable. Location: bilateral knee. The pain is relieved by pain/RX meds. bilateral knee pain Duration: ch ronic. Severity level is 7. It occurs constantly and is fluctuating. Location: bilateral knee. The pain is aching. The pain is aggravated by climbing (and descending) stairs, movement, walking, standing, rising from sitting position, housework and prolonged positioning. The pain is relieved by ice, pain/RX meds and sitting. Comments: Radha is a 63 y/o female who presents for follow up and medication refill in the setting of BL knee pain (R>L). Pain has been fluctuating this month. R knee pain has been the most bothersome. Notes tenderness to touch. Declines wanting to repeat the cortisone injections due to increased pain.Reports current medication regimen provides 60% pain relief and allows for increased functionality. Continues to utilize Suboxone 2-0.5mg with moderate benefit. Denies OIC or other side effects from current medication regimen. No other concerns today. Comments: Radha is a 63 y/o female who presents via [facility] for virtual follow up (#1) and medication refill in the setting of BL knee pain (R>L). Pain has been worse this month. L knee pain has been the most bothersome. Notes the SPRINT PNS trial was not beneficial and denies wanting to consult with a surgeon at this time.Reports current medication regimen provides 50% pain relief and allows for increased functionality. Continues to utilize Suboxone 2-0.5mg with moderate benefit. Denies OIC or other side effects from current medication regimen. No other concerns today. bilateral knee pain Duration: ch ronic. Severity level is 9. It occurs constantly and is worsening. Location: bilateral knee. The pain is relieved by pain/RX meds. bilateral knee pain Duration: ch ronic. Severity level is 7. It occurs constantly. Location: bilateral knee. The pain is aching and sharp. The pain is aggravated by bending, climbing (and descending) stairs, lifting, movement, sitting, walking, standing, housework and prolonged positioning. The pain is relieved by pain/RX meds and rest. Comments: Radha is a 63 y/o female who presents for follow up and medication refill in the setting of BL knee pain (R>L). Pain has been stable this month. Denies any new symptoms or changes. S/p SPRINT PNS trial for the L knee on 03/20/[address] Park provided minimal benefit. Notes nothing had changed with the addition of the device (no improvement with walking, sleeping, etc.). PNS leads were removed Reports current medication regimen provides significant pain relief and allows for increased functionality. Continues to utilize Suboxone 2-0.5mg with significant benefit. Denies OIC or other side effects from current medication regimen. No other concerns today. bilateral knee pain Duration: ch ronic. Severity level is 7. It occurs constantly and is fluctuating. Location: bilateral knee. The pain is relieved by pain/RX meds. Comments: Radha is a 63 y/o female who presents via [facility] for virtual follow up and medication refill in the setting of BL knee pain (R>L). Pain has been fluctuating this month. S/p SPRINT PNS trial for the L knee on 03/20/[address] Park with unsure relief. Have not seen a significant improvement in pain and notes she has been experiencing a stabbing sensation whenever she moves. She states she has been putting a bandage over the site in order to keep the leads in place.Reports current medication regimen provides 75-80% pain relief and allows for increased functionality. Continues to utilize Suboxone 2-0.5mg with significant benefit. Denies OIC or other side effects from current medication regimen. No other concerns today. Comments: Radha is a 62 y/o female who presents via [employer] for virtual follow up and medication refill in the setting of BL knee pain (R>L). Pain has been stable this month. PNS trial for the L knee is scheduled on 03/20/[address] Park. Denies any questions about the procedureReports current medication regimen provides 75-80% pain relief and allows for increased functionality. Continues to utilize Suboxone 2-0.5mg with significant benefit. Denies OIC or other side effects from current medication regimen. No other concerns today. bilateral knee pain Duration: ch ronic. Severity level is 7. It occurs constantly and is stable. Location: bilateral knee. The pain is relieved by pain/RX meds. Comments: Radha is a 62 y/o female who presents via [facility] for virtual follow up and medication refill in the setting of BL knee pain (R>L). Pain has been stable this month. Denies any new symptoms or changes. Remains interested in proceeding with the PNS trial for the L knee. Most of today's visit was spent on pre-trial education. PNS trial is scheduled for 02/20/[address] Park.Reports current medication regimen provides significant pain relief and allows for increased functionality. Continues to utilize Suboxone 2-0.5mg with significant benefit. Denies OIC or other side effects from current medication regimen. No other concerns today. bilateral knee pain Duration: ch ronic. Severity level is 7. It occurs constantly and is stable. Location: bilateral knee. The pain is relieved by pain/RX meds. bilateral knee pain Duration: ch ronic. Severity level is 8. It occurs constantly and is stable. Location: bilateral knee. Comments: Radha is a 62 y/o female who presents in clinic for a follow up and medication refill in the setting of BL knee pain (R>L). Patient normally followed by Carlene Le DNP. Pain has been stable this month. Denies any new symptoms or changes. Answered questions about her PNS trial, currently scheduled for 02/20/23.Reports current medication regimen provides 75-80% pain relief and allows for increased functionality. Continues to utilize Suboxone 2-0.5mg with significant benefit. Denies OIC or other side effects from current medication regimen. No other concerns today. bilateral knee pain Duration: ch ronic. Severity level is 7. It occurs constantly and is stable. Location: bilateral knee. The pain is relieved by pain/RX meds. Comments: Radha is a 62 y/o female who presents via [employer] for virtual follow up and medication refill in the setting of BL knee pain (R>L). Pain has been stable this month. Denies any new symptoms or changes. Inquires about scheduling for the PNS trial.Reports current medication regimen provides 75-80% pain relief and allows for increased functionality. Continues to utilize Suboxone 2-0.5mg with significant benefit. Denies OIC or other side effects from current medication regimen. No other concerns today. pain Patient is a 62 year old female presenting with complaints of chronic left knee pain that has been on going for around 14 years. She states the intense leg ain started after her TKA. She staes she had elevated pain for months after surgery tht made mobility very difficult. she had severe pain performing PT after her TKA. She also has right knee pain currently due to OA but is very hesitant to have that surgery done due tot her experience with her left knee. She notes that she is currently experiencing severe pain located left medial knee pain and hypersensitivity and burning pain through the whole lower leg. She does get swelling in both legs. Her symptoms are increased with touch, standing, transfers, stairs, walking, knee ROM, exercise. Symptoms are somewhat relieved with medication and activity avoidance. She has tried multiple different interventions, including PT numerous times. Although she did tolerate pool therapy better she had significant increase in pain will all land based PT. She had to stop therapy as the pain levels got worse. She notes that her current level of discomfort limits household mobility, ADLs such as dressing and cooking. Patient states she can not stand long enough to cook. she uses a cart at the grocery store as it is too painful to walk through the store. She has stopped going to garage sales as she is not able to stand or walk long enough. Patient's goal is to perform her daily activities with less limitation. Comments: Radha is a 62 y/o female who presents via [employer] for virtual follow up and medication refill in the setting of BL knee pain (R>L). Pain has been stable this month. Denies any new swelling, symptoms, or changes. Willing to proceed with PNS.Reports current medication regimen provides 75-80% pain relief and allows for increased functionality. Continues to utilize Suboxone 2-0.5mg with significant benefit. Denies OIC or other side effects from current medication regimen. No other concerns today. bilateral knee pain Severity lev el is 8. It occurs constantly and is stable. Location: bilateral knee. The pain is relieved by pain/RX meds. Comments: Radha is a 62 y/o female who presents for follow up and medication refill in the setting of BL knee pain (R>L). Pain has been stable this month. Notes sharp pain in the knees when she bends and goes from a sitting position to a standing position. Continues to decline injections as previous ones did not provide the relief she wanted. Will consider PNS. Reports current medication regimen provides significant pain relief and allows for increased functionality. Continues to utilize Suboxone 2-0.5mg with significant benefit. Denies OIC or other side effects from current medication regimen. No other concerns today. bilateral knee pain Duration: ch ronic. Severity level is 8. It occurs constantly and is stable. Location: bilateral knee. The pain is aching and sharp. The pain is relieved by pain/RX meds. bilateral knee pain Duration: ch ronic. Severity level is 7. It occurs constantly and is stable. Location: bilateral knee. The pain is relieved by pain/RX meds. Comments: Radha is a 62 y/o female who presents via [employer] for virtual follow up and medication refill in the setting of BL knee pain (L>R). Pain has been stable this month. Denies any new symptoms or changes. Continues to decline any injections. Reports current medication regimen provides 75-80% pain relief and allows for increased functionality. Continues to utilize Suboxone 2-0.5mg with significant benefit. Denies OIC or other side effects from current medication regimen. No other concerns today. Comments: Radha is a 62 y/o female who presents via [employer] for virtual follow up and medication refill in the setting of BL knee pain (L>R). Pain has been stable this month. She states she would like to hold off on the SHELBY injections as prior cortisone injections did not benefit. Will consider receiving the injections if pain worsens. Reports current medication regimen provides 75-80% pain relief and allows for increased functionality. Continues to utilize Suboxone 2-0.5mg with significant benefit. Denies OIC or other side effects from current medication regimen. No other concerns today. bilateral knee pain Duration: ch ronic. Severity level is 7. It occurs constantly and is stable. Location: bilateral knee. The pain is relieved by pain/RX meds. Comments: Radha is a 62 y/o female who presents via [facility] for virtual follow up and medication refill in the setting of BL knee pain (L>R). Pain has been stable this month. BL knee pain has been the most bothersome. Notes she recently followed up with Dr. Somers. Reports current medication regimen provides 75-80% pain relief and allows for increased functionality. Continues to utilize Suboxone 2-0.5mg with significant benefit. Denies OIC or other side effects from current medication regimen. No other concerns today. bilateral knee pain Duration: ch ronic. Severity level is 9. It occurs constantly and is stable. Location: bilateral knee. The pain is relieved by pain/RX meds. bilateral knee pain Duration: ch ronic. Severity level is 5. It occurs constantly and is stable. Location: bilateral knee. The pain is aching and sharp. The pain is aggravated by climbing (and descending) stairs, movement, walking, standing and housework. The pain is relieved by ice, pain/RX meds, rest, lying and sitting. Comments: Radha is a 62 y/o female who presents for follow up and medication refill in the setting of BL knee pain (L>R). Pain has been stable this month. Notes swelling and tenderness of the knees (R>L). Of note, patient states she has been experiencing recent anxiety-induced panic attacks. Notes it has been several years since she has experienced one. Unsure of the cause as nothing specific happened. Believes there is a possibility her son might have triggered her anxiety as he has been overly stressed lately. Reports current medication regimen provides significant pain relief and allows for increased functionality. Rates her pain as 9/10 without medications and 5/10 with medications. Continues to utilize Suboxone 2-0.5mg with significant benefit. Denies OIC or other side effects from current medication regimen. No other concerns today. Comments: Radha is a 61 y/o female who presents via [facility] for virtual follow up and medication refill in the setting of BL knee pain (L>R). Pain has been stable this month. Denies any new recent visits to the hospital or diagnoses.Reports current medication regimen provides 75-80% pain relief and allows for increased functionality. Continues to utilize Suboxone 2-0.5mg with significant benefit. Denies OIC or other side effects from current medication regimen. No other concerns today. bilateral knee pain Duration: ch ronic. Severity level is 8. It occurs constantly and is stable. Location: bilateral knee. The pain is aching, burning and sharp. The pain is aggravated by bending, climbing (and descending) stairs, lifting, movement, sitting, walking, standing, housework and prolonged positioning. The pain is relieved by pain/RX meds and rest. Comments: Radha is a 61 y/o female who presents via [facility] for virtual follow up and medication refill in the setting of BL knee pain (L>R). Pain has been stable this month. Denies any new symptoms or changes.Reports current medication regimen provides 75-80% pain relief and allows for normal functionality. Continues to utilize Suboxone 2-0.5mg with significant benefit. Denies OIC or other side effects from current medication regimen. No other concerns today. bilateral knee pain Duration: ch ronic. Severity level is 7. It occurs constantly and is stable. Location: bilateral knee. The pain is aching, burning, sharp and tingling. The pain is aggravated by bending, climbing (and descending) stairs, lifting, movement, sitting, walking, standing, housework and prolonged positioning. The pain is relieved by pain/RX meds and rest. Comments: Radha is a 61 y/o female who presents via [facility] for virtual follow up and medication refill in the setting of BL knee pain (L>R). Pain has been stable this month. Denies any new symptoms or changes.Reports current medication regimen provides 75-80% pain relief and allows for normal functionality. Continues to utilize Suboxone 2-0.5mg with significant benefit. Denies OIC or other side effects from current medication regimen. No other concerns today. bilateral knee pain Duration: ch ronic. Severity level is 8. It occurs constantly and is stable. Location: bilateral knee. The pain is aching, burning, sharp and tingling. The pain is aggravated by bending, climbing (and descending) stairs, lifting, movement, sitting, walking, standing, housework, twisting and prolonged positioning. The pain is relieved by pain/RX meds and rest. Comments: Radha is a 61 y/o female who presents for follow up and medication refill in the setting of BL knee pain (L>R). Pain has been stable this month. She continues to endorse a stomach bulge. No indication of surgery to resolve the issue in the near future. Patient has recently lost weight d/t lack of appetite. She states her desire to eat and enjoy food have not changed but she hasn't felt the motivation to feed herself or cook. Notes she has been only eating one meal a day. Reports current medication regimen provides moderate pain relief and allows for normal functionality. Continues to utilize Suboxone 2-0.5mg with significant benefit. Denies OIC or other side effects from current medication regimen. No other concerns today. bilateral knee pain Duration: ch ronic. Severity level is 9. It occurs constantly and is stable. Location: bilateral knee. The pain is burning and sharp. The pain is aggravated by bending, climbing (and descending) stairs, walking, standing and housework. The pain is relieved by ice, pain/RX meds, rest, laying down and sitting. bilateral knee pain Duration: ch ronic. It occurs constantly and is stable. Location: bilateral knee. The pain is aching. The pain is aggravated by movement. The pain is relieved by ice, pain/RX meds and rest. Comments: Radha is a 61 y/o female who presents via [facility] for virtual follow up and medication refill in the setting of BL knee pain (L>R). Pain is stable this month. Reports current medication regimen provides 75-80% pain relief and allows for normal functionality. She continues to use the Suboxone 2-0.5mg, with better results than she was having with the oxycodone. Denies OIC or other side effects from current medication regimen. No other concerns today.Patient presents with #13 Suboxone (buprenorphine/naloxone) 2-0.5mg - on track. bilateral knee pain Duration: ch ronic. Severity level is 8. It occurs constantly and is stable. Location: bilateral knee. The pain is aching and sharp. The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 medication refill. Bilateral knee pain R>L persists this month, tolerable with medication. She reports swelling in knees, she is doign home exercises to help with pain. She would like to continue postponing surgery on her knees. Reports current medication regimen provides 50% pain relief and allows for increased functionality. Denies side effects from current medication regimen.No other concerns today. bilateral knee pain Duration: ch ronic. Severity level is 9. It occurs constantly and is stable. Location: bilateral knee. The pain is aching, burning and sharp. The pain is aggravated by bending, climbing (and descending) stairs, lifting, movement, walking, standing, housework, twisting and running. The pain is relieved by ice and pain/RX meds. bilateral knee pain (comments) Mick george is meeting with us today via [employer] [facility] for following up and medication refill. Bilateral knee pain persists this month, tolerable with medication.Reports current medication regimen provides 75% pain relief and allows for increased functionality. Denies side effects from current medication regimen.No other concerns today. bilateral knee pain Duration: ch ronic. Severity level is 7. It occurs constantly and is stable. Location: bilateral knee. The pain is sharp. The pain is aggravated by bending, climbing (and descending) stairs, movement, walking, housework and running. The pain is relieved by ice, pain/RX meds and supine. bilateral knee pain (comments) Mick george is meeting with us today via [employer] [facility] for following up and medication refill. Bilateral knee pain persists this month, tolerable with medication. Pool PT has been postponed due to pandemic shut down.Reports current medication regimen provides 75% pain relief and allows for increased functionality. Denies side effects from current medication regimen.No other concerns today. bilateral knee pain Duration: ch ronic. Severity level is 8. It occurs constantly and is stable. Location: bilateral knee. The pain is aching and sharp. The pain is aggravated by bending, climbing (and descending) stairs, lifting, movement, walking, standing, housework and twisting. The pain is relieved by pain/RX meds, rest, supine and sitting. bilateral knee pain (comments) Mick george is here for a follow up and medications refill. Bilateral knee pain persists this month, tolerable with medication. She starts pool PT at the [facility] in [place] this week. She is still considering knee replacement surgery.Reports current medication regimen provides 75% pain relief and allows for increased functionality. Denies side effects from current medication regimen.No other concerns today. bilateral knee pain Duration: ch ronic. Severity level is 9. It occurs constantly and is stable. Location: bilateral knee. The pain is aching and sharp. The pain is aggravated by bending, climbing (and descending) stairs, lifting, movement, walking, standing, housework, running and twisting. The pain is relieved by pain/RX meds and supine. bilateral knee pain Duration: ch ronic. Severity level is 7-8. It occurs constantly and is worsening. Location: bilateral knee. The pain is aching, burning and sharp. The pain is aggravated by bending, climbing (and descending) stairs, lifting, movement, sitting, walking, standing, running, housework and twisting. The pain is relieved by ice and pain/RX meds. bilateral knee pain (comments) Mick george is here for a follow up and medications refill. Bilateral knee pain persists this month, tolerable with medication. She has not started PT because she keeps forgetting to schedule a consult. Requests another order. 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 Millan, reports 0% relief.Reports current medication regimen provides moderate pain relief and allows for increased functionality. Denies side effects from current medication regimen.No other concerns today. bilateral knee pain Duration: ch ronic. Severity level is 9. It occurs constantly and is stable. Location: bilateral knee. The pain is aching and sharp. The pain is aggravated by bending, climbing (and descending) stairs, lifting, movement, sitting, walking, standing, prolonged positioning, housework and twisting. The pain is relieved by ice, pain/RX meds and supine. bilateral knee pain (comments) Mick george is here for a follow up and medications refill. Bilateral knee pain persists this month, aggravated by cold weather. She is scheduled for her right knee Genicular Nerve Diagnostic RF work-up tomorrow with Dr. Millan.Presents with #39 percocet 10/325mg - 3 days short, she does not know what happened to the count, she sometimes loses track of how many she has taken in 1 day and may have taken 1tab extra some days due to aggravated pain from cold weather. Reports current medication regimen provides 60-70% pain relief and allows for increased functionality. Denies side effects from current medication regimen.No other concerns today. bilateral knee pain (comments) Mick george presents for follow up and medication refill. Her BL knee pain r/t OA has been stable. She has not yet completed her Genicular nerve RFW since [facility] has not yet called to schedule the procedure.-plans to call and reschedule. She is also requesting updated pool therapy orders.Patient presents with no meds to count, he forgot them at home. The prescribed medications provide at least 75% pain relief which allows her to increase daily activity levels. No medication SE noted. bilateral knee pain Duration: ch niecy. Severity level is 6-7. It occurs constantly and is worsening. Location: bilateral knee. The pain is aching and sharp. The pain is aggravated by bending, climbing (and descending) stairs, lifting, movement, walking, standing, standing, walking and twisting. The pain is relieved by ice, pain/RX meds and rest. bilateral knee pain (comments) Mick george is here for a follow up and medications refill. Her bilateral knee pain persists this month. Her right knee is worse. She is not interested in surgery at this time. She recently bought a new car which will be helpful for her transportation. She will now be able to travel to and future OV's easier.Presents with no medication, d/o 05/01/19, she explains that she was not able to get in before her d/o date because the schedule was full. Reports current medication regimen provides 75% pain relief and allows for increased functionality. Denies side effects from current medication regimen.No other concerns today. bilateral knee pain Duration: ch ronic. Severity level is 6. It occurs constantly and is worsening. Location: bilateral knee. The pain is aching, burning and sharp. The pain is aggravated by bending and walking. The pain is relieved by pain/RX meds and rest. bilateral knee pain Duration: ch ronic. It occurs constantly and is worsening. Location: bilateral knee. The pain is aching. The pain is aggravated by bending and walking. The pain is relieved by pain/RX meds and rest. bilateral knee pain (comments) Mick george is here for follow up and medications refill. Her BL knee pain is worse this month. Reports no relief from the recent Right Hyaluronic Acid Injection. She is still working on scheduling Genicular Nerve Diagnostic RF work-up. She completed the PT evaluation at [facility] but has not yet started PT sessions, she is working on getting regular rides.Presents with #11 percocet 10-325mg - surplus. Reports current medication regimen provides 75% pain relief and allows for increased functionality. Denies side effects from current medication regimen.No other concerns today. bilateral knee pain (comments) Mick george is here for follow up and medications refill. Her BL knee pain persists, continues to manage with rx medication. Reports no improvement in knee pain from recent right Hyaluronic Acid Injection. She has only completed 1 session of recent PT order due to lack of transportation. She is now able to receive rides to medical appointments through her medicare, so she may be able to travel to [place] to receive treatment procedures.Presents with no medication - d/o 02/12/19. Reports current medication regimen provides 75% pain relief and allows for increased functionality. Denies side effects from current medication regimen.No other concerns today. bilateral knee pain Duration: ch ronic. It occurs constantly and is worsening. Location: bilateral knee. The pain is burning and sharp. The pain is aggravated by bending, climbing (and descending) stairs, lifting, movement, walking, standing, housework, twisting and running. The pain is relieved by ice, pain/RX meds, supine and sitting. bilateral knee pain Duration: ch ronic. Severity level is 7. It occurs constantly and is stable. Location: bilateral knee. The pain is aggravated by bending, climbing (and descending) stairs, walking, standing and housework. The pain is relieved by ice and lying down. bilateral knee pain (comments) Mick george is here for follow up and medications refill. Pain is stable. She has not heard back from [facility] about scheduling BL knee Hyaluronic Acid Injections, but will continue to pursue.Presents with no medication - d/o 01/10/19. Reports current medication regimen provides 75% pain relief and allows for increased functionality. Denies side effects from current medication regimen.No other concerns today. bilateral knee pain Duration: alexandria ronhilario. Severity level is 5. It occurs constantly and is worsening. Location: bilateral knee. The pain is sharp. The pain is aggravated by bending and lifting. The pain is relieved by pain/RX meds and rest. bilateral knee pain (comments) Mick george is here for follow up and medications refill. Presents with #12 percocet-- 1 day short. She is unsure how she is short on meds, states she takes max 4/day, which do help with pain. Reports current medication regimen provides 75% pain relief. Denies side effects from current medication regimen. Pain is worse. Plan to schedule water therapy. Interested in trialing SHELBY injection for R knee. No other concerns today. bilateral knee pain Duration: alexandria pemberton. Severity level is 7. It occurs constantly and is worsening. Location: bilateral knee. The pain is aggravated by bending, climbing (and descending) stairs, lifting, movement, sitting, walking and standing. The pain is relieved by pain/RX meds. bilateral knee pain (comments) Mick george is here today for follow up and medication management. Presents with #12 Percocet- on track. Reports 75% relief with their current regimen and denies any side effects. Recently has completed bilateral knee X-rays at [facility] and inquires about her results today- currently being worked up for a right SHELBY injection. She also states that last time she left her medications at home and inquires if she can extend her appointments to monthly follow ups today. Patient is not accompanied today and has no other questions or concerns. bilateral knee pain Duration: alexandria ronhilario. Severity level is 5. It occurs constantly and is worsening. Location: bilateral knee. The pain is burning and sharp. The pain is aggravated by bending and lifting. The pain is relieved by pain/RX meds and rest. bilateral knee pain (comments) Mick george is here for follow up and medications refill. Presents with #5 percocet-- 1 day short. Called next day to day she has 3 more percocet at home. Will not issue Strike. Thinks she may have forgotten the rest in pill counter at home. Reports current medication regimen provides 75% pain relief. Denies side effects from current medication regimen. Pain is worse overall, particularly in R knee. Has not yet completed X-ray of BL knees d/t car problems. Would still like to pursue knee injections. States she has not been contacted regarding pool therapy. Percocet has been helpful-- insists she takes a max of 4/day. No other concerns today. bilateral knee pain Duration: ch ronic. Severity level is 5. It occurs constantly and is worsening. Location: bilateral knees, low back and ankles. The pain is aching, burning and sharp. The pain is aggravated by bending and lifting. The pain is relieved by pain/RX meds and rest. bilateral knee pain (comments) Mick george is here for follow up and medications refill. She is transferring her care from [facility] to [place] d/t [facility]. Reports current medication regimen provides 30-50% pain relief. Denies side effects from current medication regimen. Pain is worse. C/o persistent BL knee pain (R>L). Expresses interest in SHELBY injection. Last injection in knees was in 2008. Also reports occasional BL shaking, jerking in hands. Would like to transfer opioid management to [facility]-- says she has been taking oxycodone/acetaminophen 10/325mg 6-8 per day. No other concerns today. bilateral knee pain Onset: gradu al. Duration: chronic. Severity level is 7. It occurs constantly and is stable. Location: bilateral knee. The pain radiates to the low back, bilateral legs, bilateral feet. The pain is aching. The pain is aggravated by climbing (and descending) stairs, movement, walking, standing and twisting. The pain is relieved by pain/RX meds and lying down. bilateral knee pain (comments) Mick george is here for initial consult for bilateral knee pain, referred by [facility]. Pt's primary concern is her knee pain, but also experiences low back and leg pain as well as diabetic neuropathy in her feet.Patient had her left knee replaced in 2008 and had a difficult recovery, which is why she never completed a right TKA. Pt underwent physical therapy again in 2017, but reports that it increased her pain so she discontinued. Radha received steroid injections bilaterally in the past, which were unhelpful and increased her pain.Radha admits to a sedentary lifestyle d/t pain. She would like to be able to go to the park to play with her grandchildren, but feels she cannot because of her current condition. Patient has tried BioFreeze which provided minimal relief, but has not tried any other topical medications.Patient is diabetic and when asked what her A1C levels are, she reported that she doesn't know what that means. Reports that she is not good with numbers and has not changed her diet or lifestyle habits since her diagnosis.Patient is currently managed on Percocet 10/325mg max 4/day, and reports that it is the only thing that has provided her with significant relief. Also takes Meloxicam and gabapentin. Reports gabapentin is helpful for restless leg syndrome, but has not noticed improvement in her neuropathy symptoms. 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 [Forwarded Hx]* Tried: SPRINT PNS trial (minimal benefit)* Hx of L TKA assessment Unilateral primary osteoarthriti s, right knee impression Chronic RIGHT knee p ain, stable since last OV. [Forwarded Hx]* Would like to post-pone a TKA as long as possible* Tried: R knee joint injection (no benefit), R SHELBY injection (no benefit), and R knee Genicular Nerve Diagnostic RFW (no benefit)* Last completed BL Knee XR on 11/19/18 assessment Chronic pain syndrome impression Chronic BL knee pain affecting the patient's physical function, social function, and contributing to increased depression assessment [facility] (current) use of opiat e analgesic impression Currently managed on Suboxone 4-1mg BID. The medication provides 75-80% pain relief, does not cause significant side effects, increases the patient's daily activity level, and the patient presents with a surplus of medication today.Tried: Morphine (no beneficial) and Dilaudid (panic attacks).MME is Suboxone 4-1mg BID.[Forwarded Hx]* Hospitalized for unintentional OD on 07/05/2021 - combination of overuse of opioids and complicated sleep apnea. At this point it is no longer safe to prescribe full mu -opioids. Patient has had 3 episodes of unintentional OD since 2014. At this point risks outweigh benefits Mental Status Date Cognitive Assessment Orientation - Sayner ed to time, place, person, situation. Patient Care Teams Name Effective Dates (start - stop) Status Members No Information
--- OUTSIDE RECORDS SUMMARY | 2025-03-05 09:01 | XMS_ITS | Continuity of Care Document ---
Author Organization [facility] kay Address [address] 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 [address], [place], [id number], [place]. tel:[phone] OFFICE VISIT, [facility], [address] [place] [address], [id number] , [place] tel:[phone] [facility] Widespread pain (chief complaint) Causalgia of left lower limbUnilateral primary osteoarthritis , right kneeChronic pain syndromeLong term (current) use of opiate analgesic Feb- 5 [facility] Carlene. [address] [facility] [address] [facility] [address], [place], [id number], [place]. tel:[phone] OFFICE/OUTPAT IENT VISIT, [facility], [address] [place] [address], [id number] , [place] [phone] [facility] bilateral knee pain (chief complaint) Chronic pain syndromeCausal crystal of left lower limbUnilateral primary osteoarthritis , right kneeLong term (current) use of opiate analgesic 5 [facility] Carlene. [address], [place], [id number], [place]. tel:[phone] Referring Provider: Paolo Barton, [address] [place] [address], [id number]. tel:[phone] OFFICE VISIT, [facility], [address] [place] [address], [id number] , [place] [phone] [facility] Widespread pain (chief complaint) Chronic pain syndromeCausal crystal of left lower limbUnilateral primary osteoarthritis , right kneeLong term (current) use of opiate analgesic Dec- 5 Fabiolasa Carlene. [address] [facility] [address], [place], [id number], [place]. tel:[phone] OFFICE VISIT, [facility], [address] [place] [address], [id number] , [place] [phone] [facility] Widespread pain (chief complaint) Chronic pain syndromeCausal crystal of left lower limbUnilateral primary osteoarthritis , right kneeLong term (current) use of opiate analgesic 5 Nyongesa Carlene. [address] [facility] [address], [place], [id number], [place]. tel:[phone] OFFICE/OUTPAT IENT VISIT, [facility], [address] [place] [address], [id number] , [place] tel:[phone] [facility] bilateral knee pain (chief complaint) Causalgia of left lower limbUnilateral primary osteoarthritis , right kneeLong term (current) use of opiate analgesicChron ic pain syndromeEncoun ter for therapeutic drug level monitoring 5 Janiya Bean. [address] [place] [address], [id number], [place]. tel:[phone] Referring Provider: Paolo Barton, [address] [place] [address], [id number]. tel:[phone] OFFICE VISIT, [facility], [address] [place] [address], [id number] , [place] tel:[phone] [facility] Knee Pain (chief complaint) Causalgia of left lower limbUnilateral primary osteoarthritis , right kneeLong term (current) use of opiate analgesic 5 Cindyongesa Carlene. [address] [facility] [address], [place], [id number], [place]. tel:[phone] OFFICE VISIT, [facility], [address] [place] [address], [id number] , [place] tel:[phone] [facility] bilateral knee pain (chief complaint) Causalgia of left lower limbUnilateral primary osteoarthritis , right kneeLong term (current) use of opiate analgesic 5 Nyongesa Carlene. [address], [id number], [place]. tel:[phone] Referring Provider: Paolo Barton, [address] [place] [address], [id number]. tel:[phone] OFFICE/OUTPAT IENT VISIT, [facility], [address] [place] [address], [id number] , [place] [phone] [facility] bilateral knee pain (chief complaint) Causalgia of left lower limbUnilateral primary osteoarthritis , right kneeLong term (current) use of opiate analgesic 4 Nyongesa Carlene. [address], [id number], [place]. tel:[phone] Referring Provider: Paolo Barton, [address] [place] [address], [id number]. tel:[phone] OFFICE VISIT, [facility], [address] [place] [address], [id number] , [place] [phone] [facility] bilateral knee pain (chief complaint) Causalgia of left lower limbUnilateral primary osteoarthritis , left kneeUnilateral primary osteoarthritis , right kneeLong term (current) use of opiate analgesic 4 Nyongesa Carlene. [address], [id number], [place]. tel:[phone] Referring Provider: Paolo Barton, [address] [place] [address], [id number]. tel:[phone] OFFICE VISIT, [facility], [address] [place] [address], [id number] , [place] tel:[phone] [facility] bilateral knee pain (chief complaint) Causalgia of left lower limbUnilateral primary osteoarthritis , left kneeUnilateral primary osteoarthritis , right kneeLong term (current) use of opiate analgesic Mar-0 4 Nyongesa Carlene. [address], [id number], [place]. tel:[phone] OFFICE/OUTPAT IENT VISIT, [facility], [address] [place] [address], [id number] , [place] tel:[phone] [facility] bilateral knee pain (chief complaint) Causalgia of left lower limbUnilateral primary osteoarthritis , left kneeUnilateral primary osteoarthritis , right kneeLong term (current) use of opiate analgesicEncou nter for therapeutic drug level monitoringBody mass index [BMI] 45.0-49.9, adult Sep-0 6- 4 Mackenzie Addison. [address] [place] [address], [id number], [place]. tel:[phone] Referring Provider: Paolo Barton, [address] [place] [address], [id number]. tel:[phone] OFFICE VISIT, [facility], [address] [place] [address], [id number] , [place] tel:[phone] [facility] bilateral knee pain (chief complaint) Causalgia of left lower limbUnilateral primary osteoarthritis , left kneeUnilateral primary osteoarthritis , right kneeLong term (current) use of opiate analgesic Dec-3 0- 4 Nyongesa Carlene. [address], [id number], [place]. tel:[phone] Referring Provider: Paolo Barton, [address] [place] [address], [id number]. tel:[phone] OFFICE VISIT, [facility], [address] [place] [address], [id number] , [place] tel:[phone] [facility] bilateral knee pain (chief complaint) Causalgia of left lower limbUnilateral primary osteoarthritis , left kneeUnilateral primary osteoarthritis , right kneeLong term (current) use of opiate analgesic Theron-2 0- 4 Nyongesa Carlene. [address], [id number], [place]. tel:[phone] Referring Provider: Paolo Barton, [address] [place] [address], [id number]. tel:[phone] OFFICE/OUTPAT IENT VISIT, [facility], [address] [place] [address], [id number] , [place] tel:[phone] [facility] bilateral knee pain (chief complaint) Causalgia of left lower limbUnilateral primary osteoarthritis , left kneeUnilateral primary osteoarthritis , right kneeLong term (current) use of opiate analgesic 4 Nyongesa Carlene. [address] [facility] [address], [place], [id number], [place]. tel:[phone] Referring Provider: Paolo Barton, [address] [place] [address], [id number]. tel:[phone] OFFICE VISIT, [facility] TELEMEDICINE [facility], [address] [place] [address], [id number] , [place] [phone] [facility] bilateral knee pain (chief complaint) Causalgia of left lower limbUnilateral primary osteoarthritis , right kneeUnilateral primary osteoarthritis , left kneeLong term (current) use of opiate analgesic Sep- 4 Nyongesa Carlene. [address] [facility] [address], [place], [id number], [place]. tel:[phone] OFFICE VISIT, [facility] TELEMEDICINE [facility], [address] [place] [address], [id number] , [place] [phone] [facility] bilateral knee pain (chief complaint) Causalgia of left lower limbUnilateral primary osteoarthritis , right kneeUnilateral primary osteoarthritis , left kneeLong term (current) use of opiate analgesic Aug- 4 Nyongesa Carlene. [address] [facility] [address], [place], [id number], [place]. tel:[phone] OFFICE/OUTPAT IENT VISIT, [facility], [address] [place] [address], [id number] , [place] tel:[phone] [facility] bilateral knee pain (chief complaint) Causalgia of left lower limbUnilateral primary osteoarthritis , right kneeUnilateral primary osteoarthritis , left kneeLong term (current) use of opiate analgesicEncou nter for therapeutic drug level monitoring 4 Mimi Concepcion. [address], [id number], [place]. tel:[phone] Referring Provider: Paolo Bartno, [address] [place] [address], [id number]. tel:[phone] OFFICE VISIT, EST TELEMEDICINE [facility], [address] [place] [address], [id number] , [place] tel:[phone] [facility] bilateral knee pain (chief complaint) Causalgia of left lower limbUnilateral primary osteoarthritis , right kneeUnilateral primary osteoarthritis , left kneeLong term (current) use of opiate analgesic 4 Fabiola Carlene. [address], [id number], [place]. tel:[phone] [facility], [address] [place] [address], [id number] , [place] tel:[phone] [facility] No Information 3 Mimi Carlene. [address], [id number], [place]. tel:[phone] Referring Provider: Paolo Barton, [address] [place] [address], [id number]. tel:[phone] OFFICE/OUTPAT IENT VISIT, [facility], [address] [place] [address], [id number] , [place] tel:[phone] [facility] bilateral knee pain (chief complaint) Causalgia of left lower limbUnilateral primary osteoarthritis , right kneeUnilateral primary osteoarthritis , left kneeLong term (current) use of opiate analgesicEncou nter for therapeutic drug level monitoring 3 Fabiola Carlene. [address], [id number], [place]. tel:[phone] Referring Provider: Paolo Barton, [address] [place] [address], [id number]. tel:[phone] OFFICE VISIT, EST TELEMEDICINE [facility], [address] [place] [address], [id number] , [place] tel:[phone] [facility] [place] bilateral knee pain (chief complaint) Causalgia of left lower limbUnilateral primary osteoarthritis , right kneeUnilateral primary osteoarthritis , left kneeLong term (current) use of opiate analgesic 3 Mimi Concepcion. [address] [facility] [address], [place], [id number], [place]. tel:[phone] Referring Provider: Paolo Barton, [address] [place] [address], [id number]. tel:[phone] [facility], [address] [place] [address], [id number] , [place] tel:[phone] [facility] No Information 3 Vivian Boone. [address] [place] [address], [id number], [place]. tel:[phone] Referring Provider: Paolo Barton, [address] [place] [address], [id number]. tel:[phone] OFFICE VISIT, EST TELEMEDICINE [facility], [address] [place] [address], [id number] , [place] tel:[phone] [facility] bilateral knee pain (chief complaint) Causalgia of left lower limbUnilateral primary osteoarthritis , right kneeUnilateral primary osteoarthritis , left kneeLong term (current) use of opiate analgesic 3 Mimi Concepcion. [address] [facility] [address], [place], [id number], [place]. tel:[phone] OFFICE VISIT, EST TELEMEDICINE [facility], [address] [place] [address], [id number] , [place] tel:[phone] [facility] [place] bilateral knee pain (chief complaint) Causalgia of left lower limbUnilateral primary osteoarthritis , right kneeUnilateral primary osteoarthritis , left kneeLong term (current) use of opiate analgesic 3 Mimi Concepcion. [address] [facility] [address], [place], [id number], [place]. tel:[phone] OFFICE/OUTPAT IENT VISIT, EST [facility], [address] [place] [address], [id number] , [place] [phone] [facility] bilateral knee pain (chief complaint) Causalgia of left lower limbUnilateral primary osteoarthritis , right kneeUnilateral primary osteoarthritis , left kneeLong term (current) use of opiate analgesicEncou nter for therapeutic drug level monitoring 3 Aurelia Cheney [place], [address] [place] [address], [id number], [place]. tel:[phone] Referring Provider: Paolo Barton, [address] [place] [address], [id number]. tel:[phone] [facility], [address] [place] [address], [id number] , [place] [phone] [facility] No Information 3 Aurelia Middleton. [place], [address] [place], [address], [place]. tel:[phone] Referring Provider: Paolo Barton, [address] [place] [address], [id number]. tel:[phone] OFFICE VISIT, [facility] TELEMEDICINE [facility], [address] [place] [address], [id number] , [place] [phone] [facility] bilateral knee pain (chief complaint) Causalgia of left lower limbUnilateral primary osteoarthritis , right kneeUnilateral primary osteoarthritis , left kneeLong term (current) use of opiate analgesic 3 Mimi Concepcion. [address] [facility] [address], [place], [place], [id number], [place]. tel:[phone] [facility], [address] [place] [address], [id number] , [place] [phone] [facility] pain (chief complaint) Causalgia of left lower limb 3 Ray Redmond. [address] [place] [address], [id number], [place]. tel:[phone] Referring Provider: Paolo Barton, [address] [place] [address], [id number]. tel:[phone] Psych Dx Eval [facility], [address] [place] [address], [id number] , [place] [phone] Telehealth Pain disorder with related psychological factors Dec-0 3 She Awan Peg. [address] [place] [address], [id number], [place]. tel:[phone] Referring Provider: Paolo Barton, [address] [place] [address], [id number]. tel:[phone] OFFICE VISIT, [facility] TELEMEDICINE [facility], [address] [place] [address], [id number] , [place] [phone] [facility] bilateral knee pain (chief complaint) Causalgia of left lower limbUnilateral primary osteoarthritis , right kneeUnilateral primary osteoarthritis , left kneeLong term (current) use of opiate analgesic 3 Nyongesa Carlene. [address] [facility] [address], [place], [id number], [place]. tel:[phone] OFFICE/OUTPAT IENT VISIT, [facility], [address] [place] [address], [id number] , [place] [phone] [facility] bilateral knee pain (chief complaint) Unilateral primary osteoarthritis , right kneeUnilateral primary osteoarthritis , left kneeLong term (current) use of opiate analgesicCausa lgia of left lower limb 3 Nyongesa Carlene. [address] [facility] [address], [place], [id number], [place]. tel:[phone] Referring Provider: Paolo Barton, [address] [place] [address], [id number]. tel:[phone] OFFICE VISIT, [facility] TELEMEDICINE [facility], [address] [place] [address], [id number] , [place] [phone] [facility] [place] bilateral knee pain (chief complaint) Unilateral primary osteoarthritis , right kneeUnilateral primary osteoarthritis , left kneeLong term (current) use of opiate analgesic 3 Nyongesa Carlene. [address], [id number], [place]. tel:[phone] OFFICE VISIT, [facility] TELEMEDICINE [facility], [address] [place] [address], [id number] , [place] [phone] [facility] [place] bilateral knee pain (chief complaint) Unilateral primary osteoarthritis , right kneeUnilateral primary osteoarthritis , left kneeLong term (current) use of opiate analgesic 3 Nyongesa Carlene. [address], [id number], [place]. tel:[phone] OFFICE VISIT, [facility] TELEMEDICINE [facility], [address] [place] [address], [id number] , [place] [phone] [facility] bilateral knee pain (chief complaint) Unilateral primary osteoarthritis , right kneeUnilateral primary osteoarthritis , left kneeLong term (current) use of opiate analgesic 3 Nyongesa Carlene. [address], [id number], [place]. tel:[phone] [facility], [address] [place] [address], [id number] , [place] [phone] [facility] No Information 3 Nyongesa Carlene. [address], [id number], [place]. tel:[phone] OFFICE/OUTPAT IENT VISIT, [facility], [address] [place] [address], [id number] , [place] [phone] [facility] bilateral knee pain (chief complaint) Unilateral primary osteoarthritis , right kneeUnilateral primary osteoarthritis , left kneeLong term (current) use of opiate analgesicEncou nter for therapeutic drug level monitoring 3 Nyongesa Carlene. [address], [id number], [place]. tel:[phone] Referring Provider: Paolo Barton, [address] [place] [address], [address]. [phone] OFFICE VISIT, [facility], [address] [place] [address], [id number] , [place] tel:[phone] [facility] bilateral knee pain (chief complaint) Unilateral primary osteoarthritis , right kneeUnilateral primary osteoarthritis , left kneeLong term (current) use of opiate analgesic 2 Nyongesa Carlene. [address], [place], [id number], [place]. [phone] Referring Provider: Paolo Barton, [address] [place] [address], [id number]. [phone] OFFICE VISIT, [facility], [address] [place] [address], [id number] , [place] tel:[phone] [facility] bilateral knee pain (chief complaint) Unilateral primary osteoarthritis , right kneeUnilateral primary osteoarthritis , left kneeLong term (current) use of opiate analgesic 2 Nyongesa Carlene. [address], [id number], [place]. tel:[phone] Referring Provider: Paolo Barton, [address] [place] [address], [address]. [phone] OFFICE VISIT, [facility], [address] [place] [address], [id number] , [place] tel:[phone] [facility] bilateral knee pain (chief complaint) Unilateral primary osteoarthritis , right kneeUnilateral primary osteoarthritis , left kneeLong term (current) use of opiate analgesic 2 Nyongesa Carlene. [address], [id number], [place]. tel:[phone] OFFICE/OUTPAT IENT VISIT, [facility], [address] [place] [address], [id number] , [place] tel:[phone] [facility] bilateral knee pain (chief complaint) Unilateral primary osteoarthritis , right kneeUnilateral primary osteoarthritis , left kneeLong term (current) use of opiate analgesicEncou nter for therapeutic drug level monitoringEnco unter for screening for other disorder Feb- 2 Mimi Concepcion. [address], [id number], [place]. tel:[phone] Referring Provider: Paolo Barton, [address] [place] [address], [id number]. tel:[phone] [facility], [address] [place] [address], [id number] , [place] [phone] [facility] No Information Feb- 2 Mimi Concepcion. [address], [id number], [place]. tel:[phone] OFFICE VISIT, EST TELEMEDICINE [facility], [address] [place] [address], [id number] , [place] tel:[phone] [facility] bilateral knee pain (chief complaint) Unilateral primary osteoarthritis , right kneeUnilateral primary osteoarthritis , left kneeLong term (current) use of opiate analgesic Jan- 2 Mimi Concepcion. [address], [id number], [place]. tel:[phone] Referring Provider: Paolo Barton, [address] [place] [address], [address]. tel:[phone] OFFICE VISIT, EST TELEMEDICINE [facility], [address] [place] [address], [id number] , [place] tel:[phone] [facility] bilateral knee pain (chief complaint) Unilateral primary osteoarthritis , right kneeUnilateral primary osteoarthritis , left kneeLong term (current) use of opiate analgesicGener alized abdominal pain Dec- 2 Mimi Concepcion. [address], [id number], [place]. tel:[phone] Referring Provider: Paolo Barton, [address] [place] [address], [id number]. tel:[phone] OFFICE VISIT, EST TELEMEDICINE [facility], [address] [place] [address], [id number] , [place] tel:[phone] [facility] bilateral knee pain (chief complaint) Unilateral primary osteoarthritis , right kneeUnilateral primary osteoarthritis , left kneeLong term (current) use of opiate analgesic Theron- 2 Adityacharlesladymaxwell Garciae. [address] [place] [address], [id number], [place]. tel:[phone] Referring Provider: Paolo Barton, [address] [place] [address], [id number]. tel:[phone] [facility], [address] [place] [address], [id number] , [place] tel:[phone] [facility] No Information 2 Nyongesa Carlene. [address], [place], [id number], [place]. tel:[phone] OFFICE/OUTPAT IENT VISIT, [facility], [address] [place] [address], [id number] , [place] tel:[phone] [facility] bilateral knee pain (chief complaint) Chronic pain syndromeUnilat eral primary osteoarthritis , right kneeUnilateral primary osteoarthritis , left kneeGeneralize d abdominal painLong term (current) use of opiate analgesic 2 Nyongesa Carlene. [address] [facility] [address], [place], [id number], [place]. tel:[phone] Referring Provider: Paolo Barton, [address] [place] [address], [id number]. tel:[phone] OFFICE VISIT, EST TELEMEDICINE [facility], [address] [place] [address], [id number] , [place] tel:[phone] [facility] [place] bilateral knee pain (chief complaint) Chronic pain syndromeUnilat eral primary osteoarthritis , right kneeUnilateral primary osteoarthritis , left kneeGeneralize d abdominal painLong term (current) use of opiate analgesic Aug- 2 Nyongesa Carlene. [address], [id number], [place]. tel:[phone] Referring Provider: Paolo Barton, [address] [place] [address], [id number]. tel:[phone] OFFICE VISIT, [facility] TELEMEDICINE [facility], [address] [place] [address], [id number] , [place] tel:[phone] [facility] bilateral knee pain (chief complaint) Unilateral primary osteoarthritis , left kneeUnilateral primary osteoarthritis , right kneeChronic pain syndromeLong term (current) use of opiate analgesicGener alized abdominal pain Jul-2 2 Nyongesa Carlene. [address], [id number], [place]. tel:[phone] Referring Provider: Vikas Somers, [facility] [address] [place], [address]. tel:[phone] OFFICE VISIT, [facility], [address] [place] [address], [id number] , [place] tel:[phone] [facility] bilateral knee pain (chief complaint) Unilateral primary osteoarthritis , left kneeUnilateral primary osteoarthritis , right kneeChronic pain syndromeLong term (current) use of opiate analgesic b-0 2 Nyongesa Carlene. [address], [id number], [place]. tel:[phone] Referring Provider: Vikas Somers, [facility] [address] [place], [address]. tel:[phone] [facility], [address] [place] [address], [id number] , [place] tel:[phone] [facility] No Information 2 Nyongesa Carlene. [address], [id number], [place]. tel:[phone] OFFICE/OUTPAT IENT VISIT, [facility], [address] [place] [address], [id number] , [place] tel:[phone] [facility] bilateral knee pain (chief complaint) Unilateral primary osteoarthritis , left kneeUnilateral primary osteoarthritis , right kneeChronic pain syndromeLong term (current) use of opiate analgesicGener alized abdominal painEncounter for therapeutic drug level monitoring 2 Mimi Concepcion. [address] [facility] [address], [place], [id number], [place]. tel:[phone] Referring Provider: Vikas Somers, [facility] [address] , [place], [address]. tel:[phone] OFFICE VISIT, EST TELEMEDICINE [facility], [address] [place] [address], [id number] , [place] [phone] [facility] bilateral knee pain (chief complaint) Unilateral primary osteoarthritis , left kneeUnilateral primary osteoarthritis , right kneeChronic pain syndromeLong term (current) use of opiate analgesicGener alized abdominal pain 1 Mimi Concepcion. [address] [facility] [address], [id number], [place]. tel:[phone] OFFICE/OUTPAT IENT VISIT, [facility], [address] [place] [address], [id number] , [place] [phone] [facility] bilateral knee pain (chief complaint) Unilateral primary osteoarthritis , left kneeUnilateral primary osteoarthritis , right kneeChronic pain syndromeLong term (current) use of opiate analgesicGener alized abdominal pain 1 Mimi Concepcion. [address] [facility] [address], [place], [id number], [place]. tel:[phone] Referring Provider: Paolo Barton, [address] [place], [address]. tel:[phone] OFFICE VISIT, EST TELEMEDICINE [facility], [address] [place] [address], [id number] , [place] [phone] [facility] bilateral knee pain (chief complaint) Unilateral primary osteoarthritis , left kneeUnilateral primary osteoarthritis , right kneeChronic pain syndromeLong term (current) use of opiate analgesic 1 Nyongesa Carlene. [address], [id number], [place]. tel:[phone] OFFICE VISIT, [facility], [address] [place] [address], [id number] , [place] tel:[phone] [facility] bilateral knee pain (chief complaint) Unilateral primary osteoarthritis , left kneeUnilateral primary osteoarthritis , right kneeChronic pain syndromeLong term (current) use of opiate analgesic Feb- 1 Nyongesa Carlene. [address], [id number], [place]. tel:[phone] Referring Provider: Paolo Barton, [address] [place] [address], [id number]. tel:[phone] OFFICE VISIT, [facility], [address] [place] [address], [id number] , [place] tel:[phone] [facility] bilateral knee pain (chief complaint) Unilateral primary osteoarthritis , left kneeUnilateral primary osteoarthritis , right kneeChronic pain syndromeLong term (current) use of opiate analgesic 1 Nyongesa Carlene. [address], [id number], [place]. tel:[phone] Referring Provider: Paolo Barton, [address] [place] [address], [address]. tel:[phone] [facility], [address] [place] [address], [id number] , [place] tel:[phone] [facility] correction (current) use of opiate analgesicEncou nter for therapeutic drug level monitoring 1 Nyongesa Carlene. [address], [id number], [place]. tel:[phone] Referring Provider: Paolo Barton, [address] [place] [address], [id number]. tel:[phone] OFFICE VISIT, [facility], [address] [place] [address], [id number] , [place] [phone] [facility] bilateral knee pain (chief complaint) Unilateral primary osteoarthritis , left kneeUnilateral primary osteoarthritis , right kneeChronic pain syndromeLong term (current) use of opiate analgesicEncou nter for therapeutic drug level monitoring 1 Nyongesa Carlene. [address] [facility] [address], [place], [id number], [place]. tel:[phone] Referring Provider: Paolo Barton, [address] [place] [address], [address]. tel:[phone] OFFICE/OUTPAT IENT VISIT, [facility], [address] [place] [address], [id number] , [place] [phone] [facility] bilateral knee pain (chief complaint) Unilateral primary osteoarthritis , left kneeUnilateral primary osteoarthritis , right kneeChronic pain syndromeLong term (current) use of opiate analgesicEncou nter for therapeutic drug level monitoringEnco unter for screening for other disorder 1 Nyongesa Carlene. [address] [facility] [address], [id number], [place]. tel:[phone] Referring Provider: Paolo Barton, [address] [place] [address], [address]. [phone] OFFICE VISIT, [facility], [address] [place] [address], [id number] , [place] [phone] [facility] bilateral knee pain (chief complaint) Unilateral primary osteoarthritis , left kneeUnilateral primary osteoarthritis , right kneeChronic pain syndromeLong term (current) use of opiate analgesic 1 Nyongesa Carlene. [address] [facility] [address], [place], [id number], [place]. tel:[phone] Referring Provider: Paolo Barton, [address] [place] [address], [id number]. tel:[phone] OFFICE VISIT, [facility], [address] [place] [address], [id number] , [place] tel:[phone] [facility] [place] bilateral knee pain (chief complaint) Unilateral primary osteoarthritis , left kneeUnilateral primary osteoarthritis , right kneeChronic pain syndromeLong term (current) use of opiate analgesic 1 Nyongesa Carlene. [address], [place], [id number], [place]. tel:[phone] Referring Provider: Paolo Barton, [address] [place] [address], [address]. tel:[phone] OFFICE VISIT, [facility], [address] [place] [address], [id number] , [place] [phone] [facility] bilateral knee pain (chief complaint) Unilateral primary osteoarthritis , left kneeUnilateral primary osteoarthritis , right kneeChronic pain syndromeLong term (current) use of opiate analgesic 1 Nyongesa Carlene. [address], [place], [id number], [place]. tel:[phone] Referring Provider: Paolo Barton, [address] [place] [address], [id number]. tel:[phone] OFFICE VISIT, [facility], [address] [place] [address], [id number] , [place] [phone] [facility] bilateral knee pain (chief complaint) Unilateral primary osteoarthritis , left kneeUnilateral primary osteoarthritis , right kneeChronic pain syndromeLong term (current) use of opiate analgesic 1 Nyongesa Carlene. [address] [place] [address] [address], [place], [id number], [place]. tel:[phone] Referring Provider: Paolo Barton, [address] [place] [address], [address]. tel:[phone] OFFICE VISIT, [facility], [address] [place] [address], [id number] , [place] [phone] [facility] [place] bilateral knee pain (chief complaint) Unilateral primary osteoarthritis , left kneeUnilateral primary osteoarthritis , right kneeChronic pain syndromeLong term (current) use of opiate analgesic 1 Nyongesa Carlene. [address], [id number], [place]. tel:[phone] Referring Provider: Paolo Barton, [address] [place] [address], [id number]. tel:[phone] [facility], [address] [place] [address], [id number] , [place] tel:[phone] [facility] No Information 0 Nyongesa Carlene. [address], [id number], [place]. tel:[phone] Referring Provider: Paolo Barton, [address] [place] [address], [address]. tel:[phone] OFFICE VISIT, EST TELEMEDICINE [facility], [address] [place] [address], [id number] , [place] tel:[phone] [facility] bilateral knee pain (chief complaint) Unilateral primary osteoarthritis , left kneeUnilateral primary osteoarthritis , right kneeChronic pain syndromeLong term (current) use of opiate analgesicEncou nter for therapeutic drug level monitoring 0 Nyongesa Carlene. [address], [id number], [place]. tel:[phone] Referring Provider: Paolo Barton, [address] [place] [address], [address]. tel:[phone] OFFICE VISIT, EST TELEMEDICINE [facility], [address] [place] [address], [id number] , [place] tel:[phone] [facility] bilateral knee pain (chief complaint) Unilateral primary osteoarthritis , left kneeUnilateral primary osteoarthritis , right kneeChronic pain syndromeLong term (current) use of opiate analgesic 0 Nyongesa Carlene. [address], [id number], [place]. tel:[phone] Referring Provider: Paolo Barton, [address] [place] [address], [address]. tel:[phone] OFFICE VISIT, EST TELEMEDICINE [facility], [address] [place] [address], [id number] , [place] tel:[phone] [facility] [place] bilateral knee pain (chief complaint) Unilateral primary osteoarthritis , left kneeUnilateral primary osteoarthritis , right kneeChronic pain syndromeLong term (current) use of opiate analgesic Nov-0 -202 0 Nyongesa Carlene. [address], [id number], [place]. tel:[phone] Referring Provider: Paolo Barton, [address] [place] [address], [address]. tel:[phone] [facility], [address] [place] [address], [id number] , [place] tel:[phone] [facility] [place] Bilateral primary osteoarthritis of knee Mar-2 0 Nyongesa Carlene. [address], [id number], [place]. tel:[phone] OFFICE VISIT, EST TELEMEDICINE [facility], [address] [place] [address], [id number] , [place] tel:[phone] [facility] [place] bilateral knee pain (chief complaint) Unilateral primary osteoarthritis , left kneeUnilateral primary osteoarthritis , right kneeChronic pain syndromeLong term (current) use of opiate analgesic Sep-0 -202 0 Nyongesa Carlene. [address], [id number], [place]. tel:[phone] Referring Provider: Paolo Barton, [address] [place] [address], [address]. tel:[phone] OFFICE VISIT, EST TELEMEDICINE [facility], [address] [place] [address], [id number] , [place] tel:[phone] [facility] bilateral knee pain (chief complaint) Unilateral primary osteoarthritis , left kneeUnilateral primary osteoarthritis , right kneeChronic pain syndromeLong term (current) use of opiate analgesic Aug-0 4-202 0 Nyongesa Carlene. [address], [id number], [place]. tel:[phone] Referring Provider: Paolo Barton, [address] [place] [address], [address]. tel:[phone] OFFICE VISIT, EST [facility], [address] [place] [address], [id number] , [place] [phone] [facility] bilateral knee pain (chief complaint) Unilateral primary osteoarthritis , left kneeUnilateral primary osteoarthritis , right kneeChronic pain syndromeLong term (current) use of opiate analgesic 0 Nyongesa Carlene. [address], [id number], [place]. tel:[phone] Referring Provider: Paolo Barton, [address] [place] [address], [address]. tel:[phone] OFFICE VISIT, EST [facility], [address] [place] [address], [id number] , [place] tel:[phone] [facility] bilateral knee pain (chief complaint) Unilateral primary osteoarthritis , left kneeUnilateral primary osteoarthritis , right kneeChronic pain syndromeLong term (current) use of opiate analgesic 0 Nyongesa Carlene. [address], [id number], [place]. tel:[phone] Referring Provider: Paolo Barton, [address] [place] [address], [address]. tel:[phone] OFFICE VISIT, EST [facility], [address] [place] [address], [id number] , [place] tel:[phone] [facility] bilateral knee pain (chief complaint) Unilateral primary osteoarthritis , left kneeUnilateral primary osteoarthritis , right kneeChronic pain syndromeLong term (current) use of opiate analgesic 0 Nyongesa Carlene. [address], [id number], [place]. tel:[phone] Referring Provider: Paolo Barton, [address] [place] [address], [address]. tel:[phone] OFFICE VISIT, [facility] TELEMEDICINE [facility], [address] [place] [address], [id number] , [place] tel:[phone] [facility] bilateral knee pain (chief complaint) Unilateral primary osteoarthritis , left kneeUnilateral primary osteoarthritis , right kneeChronic pain syndromeLong term (current) use of opiate analgesic Apr-0 0 Nyongesa Carlene. [address] [facility] [address], [id number], [place]. tel:[phone] Referring Provider: Paolo Barton, [address] [place] [address], [address]. tel:[phone] OFFICE/OUTPAT IENT VISIT, [facility], [address] [place] [address], [id number] , [place] [phone] [facility] bilateral knee pain (chief complaint) Unilateral primary osteoarthritis , left kneeUnilateral primary osteoarthritis , right kneeChronic pain syndromeLong term (current) use of opiate analgesic Mar-0 0 Nyongesa Carlene. [address], [id number], [place]. tel:[phone] Referring Provider: Paolo Barton, [address] [place] [address], [id number]. tel:[phone] OFFICE/OUTPAT IENT VISIT, [facility], [address] [place] [address], [id number] , [place] [phone] [facility] bilateral knee pain (chief complaint) Unilateral primary osteoarthritis , left kneeUnilateral primary osteoarthritis , right kneeChronic pain syndromeLong term (current) use of opiate analgesicEncou nter for therapeutic drug level monitoring Jul-0 0 Nyongesa Carlene. [address] [facility] [address], [id number], [place]. tel:[phone] Referring Provider: Paolo Barton, [address] [place] [address], [address]. tel:[phone] [facility], [address] [place] [address], [id number] , [place] tel:[phone] [facility] [place] Unilateral primary osteoarthritis , right knee 0 Monty Zimmer. [address] [place] [address], [id number], [place]. tel:[phone] Referring Provider: Paolo Barton, [address] [place] [address], [address]. tel:[phone] OFFICE/OUTPAT IENT VISIT, [facility], [address] [place] [address], [id number] , [place] [phone] [facility] bilateral knee pain (chief complaint) Unilateral primary osteoarthritis , left kneeUnilateral primary osteoarthritis , right kneeChronic pain syndromeLong term (current) use of opiate analgesic 0- 0 Nyongesa Carlene. [address] [facility] [address], [place], [id number], [place]. tel:[phone] Referring Provider: Paolo Barton, [address] [place] [address], [address]. tel:[phone] OFFICE/OUTPAT IENT VISIT, [facility], [address] [place] [address], [id number] , [place] [phone] [facility] bilateral knee pain (chief complaint) Unilateral primary osteoarthritis , left kneeUnilateral primary osteoarthritis , right kneeChronic pain syndromeLong term (current) use of opiate analgesic 0 9 Nyongesa Carlene. [address] [facility] [address], [place], [id number], [place]. tel:[phone] Referring Provider: Paolo Barton, [address] [place] [address], [address]. tel:[phone] OFFICE/OUTPAT IENT VISIT, [facility], [address] [place] [address], [id number] , [place] tel:[phone] [facility] bilateral knee pain (chief complaint) Unilateral primary osteoarthritis , left kneeUnilateral primary osteoarthritis , right kneeChronic pain syndromeLong term (current) use of opiate analgesicDiarr hea 9 [facility]. [address] [facility] [address], [place], [id number], [place]. tel:[phone] Referring Provider: Paolo Barton, [address] [place] [address], [address]. tel:[phone] OFFICE/OUTPAT IENT VISIT, [facility], [address] [place] [address], [id number] , [place] [phone] [facility] bilateral knee pain (chief complaint) Pain in right kneeUnilateral primary osteoarthritis , left kneeUnilateral primary osteoarthritis , right kneeChronic pain syndromeLong term (current) use of opiate analgesicDiarr heaNausea 9 [facility]. [address] [facility] [address], [place], [id number], [place]. tel:[phone] Referring Provider: Paolo Barton, [address] [place] [address], [address]. tel:[phone] OFFICE/OUTPAT IENT VISIT, [facility], [address] [place] [address], [id number] , [place] tel:[phone] [facility] bilateral knee pain (chief complaint) Pain in right kneeUnilateral primary osteoarthritis , left kneeChronic pain syndromeLong term (current) use of opiate analgesicUnila teral primary osteoarthritis , right knee Sep- 9 [facility]. [address] [facility] [address], [place], [id number], [place]. tel:[phone] Referring Provider: Paolo Barton, [address] [place] [address], [address]. tel:[phone] [facility], [address] [place] [address], [id number] , [place] tel:[phone] [facility] Pain in right knee 9 [facility]. [facility], [address] [place] [address] [address], [place], [address], [place]. tel:[phone] Referring Provider: Paolo Barton, [address] [place] [address], [address]. tel:[phone] OFFICE/OUTPAT IENT VISIT, [facility], [address] [place] [address], [id number] , [place] [phone] [facility] bilateral knee pain (chief complaint) Pain in right kneeUnilateral primary osteoarthritis , left kneeChronic pain syndromeLong term (current) use of opiate analgesic 9 Nyongesa Carlene. [address] [facility] 11 [facility] [address], [place], [id number], [place]. tel:[phone] Referring Provider: Paolo Barton, [address] [place] [address], [address]. tel:[phone] OFFICE/OUTPAT IENT VISIT, [facility], [address] [place] [address], [id number] , [place] [phone] [facility] bilateral knee pain (chief complaint) Chronic pain syndromePain in right kneeUnilateral primary osteoarthritis , left kneeLong term (current) use of opiate analgesic 9 Nyongesa Carlene. [address] [place] [address], [id number], [place]. tel:[phone] Referring Provider: Paolo Barton, [address] [place] [address], [address]. tel:[phone] OFFICE/OUTPAT IENT VISIT, [facility], [address] [place] [address], [id number] , [place] [phone] [facility] bilateral knee pain (chief complaint) Chronic pain syndromeUnilat eral primary osteoarthritis , left kneePain in right knee 9 Aurelia Cheney [place], [address] [place], [address], [place]. tel:[phone] Referring Provider: Paolo Barton, [address] [place] [address], [address]. tel:[phone] OFFICE/OUTPAT IENT VISIT, [facility], [address] [place] [address], [id number] , [place] tel:[phone] [facility] bilateral knee pain (chief complaint) correction (current) use of opiate analgesicLong term current use of anticoagulantC hronic pain syndromeDiabet es insipidusPain in right kneeUnilateral primary osteoarthritis , left knee Theron- 0-201 9 Nyongesa Carlene. [address] [facility] [address], [place], [id number], [place]. [phone] Referring Provider: Paolo Barton, [address] [place] [address], [address]. 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 [id number] [place] [address] [address], [place], [id number], [place]. [phone] Referring Provider: Paolo Barton, [address] [place] [address], [id number]. [phone] OFFICE/OUTPAT IENT VISIT, [facility], [address] [place] [address], [id number] , [place] tel: [phone] [facility] bilateral knee pain (chief complaint) Pain in right kneeUnilateral primary osteoarthritis , left kneeChronic pain syndromeLong term (current) use of opiate analgesicLong term current use of anticoagulantD iabetes insipidus [phone] Pieter Patel. [address], [place], [address]. tel:[phone] Family History Family Member Type Diagnosis Age At Onset Mother Problem (finding) Chronic Back Pain Payers Payer name Insurance type Covered democrat ID Authorperico olmedo(s) AARP MedicareComplete Replacement 16 [id number] [employer] And [facility] [id number] Social History Type Description Quantity Date Captured [...] Goal ALT (SGPT). Due on due Goal PESTICIDE APPLICATOR Paperwork. Due on due Goal OARS. Due on due Goal OCCUPATIONAL PHYSICIAN Scanned. Due on due Goal Medication Recon [...] Review Allergy List. Due on due Goal PESTICIDE APPLICATOR Paperwork. Due on due Goal Zoster vaccine ( 1st). Due on due Goal FIT. Due on due Goal UDT. Due on due Goal Tobacco screening. Due on due Goal Order Annual PT. Due on due Goal ALT (SGPT). Due on due Goal Medication Recon ciliation. Due on due Goal Unhealthy drug u se screening. Due on due Goal OCCUPATIONAL PHYSICIAN Scanned. Due on due Goal Weight. Due [...] due Goal FIT-DNA. Due on due Goal OCCUPATIONAL PHYSICIAN Scanned. Due on 025 due Goal Hepatitis C scre ening. Due on due Goal HPV. Due on due Goal PHQ-9. Due on du e Goal ALT (SGPT). Due on due Goal Weight. Due on d ue Goal Tobacco Use. Due on 025 due Goal PESTICIDE APPLICATOR Paperwork. Due on due Goal Order Annual [...] Goal Tobacco screening. Due on due Goal PESTICIDE APPLICATOR Paperwork. Due on due Goal UDT. Due [...] C scre ening. Due on due Goal OCCUPATIONAL PHYSICIAN Scanned. Due on due Goal Weight. Due on d ue Goal Update Social Hi story. Due on due Goal PESTICIDE APPLICATOR Paperwork. Due on due Goal Creatinine. Due on due Goal UDT. Due on due Goal Tobacco screening. Due on due Goal Update Social Hi story. Due on due Goal CT-Colonography. Due on due Goal Zoster vaccine ( 1st). Due on due Goal OCCUPATIONAL PHYSICIAN Scanned. Due on due Goal PHQ-9. Due [...] due Goal OARS. Due on due Goal OCCUPATIONAL PHYSICIAN Scanned. Due on due Goal Order Annual PT. Due on due Goal ALT (SGPT). Due on due Goal UDT. Due on due Goal Creatinine. Due on due Goal PESTICIDE APPLICATOR Paperwork. Due on due Goal AST (SGOT). [...] due Goal OARS. Due on due Goal OCCUPATIONAL PHYSICIAN Scanned. Due on 025 due Goal Update Social Hi story. Due on due Goal Review Allergy List. Due on due Goal ALT (SGPT). Due on due Goal Order Annual PT. Due on due Goal AST (SGOT). Due on due Goal Weight. Due on d ue Goal PESTICIDE APPLICATOR Paperwork. Due on due Goal Creatinine. Due [...] Social Hi story. Due on due Goal PESTICIDE APPLICATOR Paperwork. Due on due Goal ALT (SGPT). Due on due Goal OCCUPATIONAL PHYSICIAN Scanned. Due on due Goal Hepatitis C scre ening. Due on due Goal Lipid panel. Due on due Goal CT-Colonography. Due on due Goal ALT (SGPT). Due on 24 due Goal OCCUPATIONAL PHYSICIAN Scanned. Due on due Goal PESTICIDE APPLICATOR Paperwork. Due on due Goal Creatinine. Due [...] e Goal OARS. Due on due Goal PESTICIDE APPLICATOR Paperwork. Due on due Goal Update Social Hi story. Due on due Goal ALT (SGPT). Due on due Goal Weight. Due on d ue Goal FIT-DNA. Due on due Goal HPV. Due on due Goal Medication Recon ciliation. Due on due Goal Unhealthy drug u se screening. Due on due Goal AST (SGOT). Due on due Goal OCCUPATIONAL PHYSICIAN Scanned. Due on due Goal UDT. Due [...] Goal Height. Due on d ue Goal OCCUPATIONAL PHYSICIAN Scanned. Due on due Goal Zoster vaccine ( ). Due on due Goal HPV. Due on due Goal Hepatitis C scre ening. Due on due Goal FIT. Due on due Goal PESTICIDE APPLICATOR Paperwork. Due on due Goal Medication Recon [...] Goal Height. Due on d ue Goal PESTICIDE APPLICATOR Paperwork. Due on due Goal Zoster vaccine [...] C scre ening. Due on due Goal OCCUPATIONAL PHYSICIAN Scanned. Due on due Goal Lipid panel. [...] due Goal FIT. Due on due Goal OCCUPATIONAL PHYSICIAN Scanned. Due on due Goal PESTICIDE APPLICATOR Paperwork. Due on due Goal AST (SGOT). [...] Order Annual PT. Due on due Goal OCCUPATIONAL PHYSICIAN Scanned. Due on due Goal PESTICIDE APPLICATOR Paperwork. Due on due Goal Creatinine. Due [...] Medication Recon ciliation. Due on due Goal OCCUPATIONAL PHYSICIAN Scanned. Due on due Goal Review Allergy List. Due on due Goal UDT. Due on due Goal PESTICIDE APPLICATOR Paperwork. Due on due Goal Weight. Due [...] due Goal UDT. Due on due Goal OCCUPATIONAL PHYSICIAN Scanned. Due on due Goal Hepatitis C scre ening. Due on due Goal Weight. Due on d ue Goal OARS. Due on due Goal Update Social Secucloud story. Due on due Goal Medication Recon ciliation. Due on due Goal Order Annual PT. Due on due Goal Creatinine. Due on due Goal AST (SGOT). Due on due Goal PESTICIDE APPLICATOR Paperwork. Due on due Goal FIT-DNA. Due [...] Goal Tobacco Use. Due on due Goal PESTICIDE APPLICATOR Paperwork. Due on due Goal OARS. Due [...] Goal Lipid panel. Due on due Goal OCCUPATIONAL PHYSICIAN Scanned. Due on due Goal Tobacco Use. Due on due Goal FIT. Due on due Goal ALT (SGPT). Due on due Goal AST (SGOT). Due on due Goal PESTICIDE APPLICATOR Paperwork. Due on due Goal Weight. Due on d ue Goal FIT-DNA. Due on due Goal OARS. Due on due Goal OCCUPATIONAL PHYSICIAN Scanned. Due on due Goal Unhealthy drug [...] Order Annual PT. Due on due Goal OCCUPATIONAL PHYSICIAN Scanned. Due on due Goal Review Allergy List. Due on due Goal Weight. Due on d ue Goal Update Social Hi story. Due on due Goal Lipid panel. Due on due Goal PESTICIDE APPLICATOR Paperwork. Due on due Goal AST (SGOT). [...] Goal PHQ-9. Due on du e Goal OCCUPATIONAL PHYSICIAN Scanned. Due on due Goal Unhealthy drug [...] Goal AST (SGOT). Due on due Goal PESTICIDE APPLICATOR Paperwork. Due on due Goal Zoster vaccine ( 1st). Due on due Goal Height. Due on d ue Goal Review Allergy List. Due on due Goal Hepatitis C scre ening. Due on due Goal Order Annual PT. Due on due Goal Creatinine. Due on due Goal ALT (SGPT). Due on due Goal OCCUPATIONAL PHYSICIAN Scanned. Due on due Goal ALT (SGPT). Due on due Goal AST (SGOT). Due on due Goal Creatinine. Due on due Goal OARS. Due on due Goal UDT. Due on due Goal Order Annual PT. Due on due Goal PESTICIDE APPLICATOR Paperwork. Due on due Goal Zoster vaccine [...] Goal PHQ-9. Due on du e Goal PESTICIDE APPLICATOR Paperwork. Due on due Goal HPV. Due on due Goal ALT (SGPT). Due on due Goal Update Social Hi story. Due on due Goal Tobacco Use. Due on due Goal PHQ-9. Due on du e Goal Height. Due on d ue Goal Hepatitis C scre ening. Due on due Goal Zoster vaccine ( 1st). Due on due Goal CT-Colonography. Due on due Goal OCCUPATIONAL PHYSICIAN Scanned. Due on due Goal UDT. Due [...] u se screening. Due on due Goal OCCUPATIONAL PHYSICIAN Scanned. Due on due Goal Medication Recon ciliation. Due on due Goal CT-Colonography. Due on due Goal FIT. Due on due Goal Tobacco Use. Due on due Goal PESTICIDE APPLICATOR Paperwork. Due on due Goal Review Allergy List. Due on due Goal Hepatitis C scre ening. Due on due Goal PHQ-9. Due on du e Goal HPV. Due on due Goal AST (SGOT). Due on due Goal OARS. Due on due Goal Creatinine. Due on due Goal Order Annual PT. Due on due Goal ALT (SGPT). Due on due Goal PESTICIDE APPLICATOR Paperwork. Due on due Goal UDT. Due [...] Social Hi story. Due on due Goal OCCUPATIONAL PHYSICIAN Scanned. Due on due Goal Zoster vaccine [...] Goal AST (SGOT). Due on due Goal PESTICIDE APPLICATOR Paperwork. Due on due Goal Tobacco Use. Due on due Goal Creatinine. Due on due Goal OCCUPATIONAL PHYSICIAN Scanned. Due on due Goal Height. Due [...] Goal ALT (SGPT). Due on due Goal PESTICIDE APPLICATOR Paperwork. Due on due Goal OCCUPATIONAL PHYSICIAN Scanned. Due on due Goal Order Annual [...] e Goal Creatinine. Due on due Goal OCCUPATIONAL PHYSICIAN Scanned. Due on due Goal PESTICIDE APPLICATOR Paperwork. Due on due Goal AST (SGOT). [...] Goal ALT (SGPT). Due on due Goal PESTICIDE APPLICATOR Paperwork. Due on due Goal OCCUPATIONAL PHYSICIAN Scanned. Due on due Goal FIT. Due [...] due Goal CT-Colonography. Due on due Goal OCCUPATIONAL PHYSICIAN Scanned. Due on due Goal HPV. Due on due Goal Creatinine. Due on due Goal AST (SGOT). Due on due Goal Height. Due on d ue Goal PESTICIDE APPLICATOR Paperwork. Due on due Goal Tobacco Use. Due on due Goal Update Social Hi story. Due on due Goal Zoster vaccine ( 1st). Due on due Goal Weight. Due on d ue Goal Unhealthy drug u se screening. Due on due Goal Medication Recon ciliation. Due on due Goal Hepatitis C scre ening. Due on due Goal OCCUPATIONAL PHYSICIAN Scanned. Due on due Goal PHQ-9. Due on du e Goal Lipid panel. Due on due Goal Height. Due on d ue Goal Order Annual PT. Due on due Goal PESTICIDE APPLICATOR Paperwork. Due on due Goal FIT-DNA. Due [...] C scre ening. Due on due Goal OCCUPATIONAL PHYSICIAN Scanned. Due on due Goal UDT. Due on due Goal PESTICIDE APPLICATOR Paperwork. Due on due Goal Zoster vaccine [...] Order Annual PT. Due on due Goal PESTICIDE APPLICATOR Paperwork. Due on due Goal Creatinine. Due on due Goal OCCUPATIONAL PHYSICIAN Scanned. Due on due Goal Review Allergy [...] due Goal Creatinine. Due on due Goal OCCUPATIONAL PHYSICIAN Scanned. Due on due Goal PESTICIDE APPLICATOR Paperwork. Due on due Goal Weight. Due [...] due Goal FIT. Due on due Goal OCCUPATIONAL PHYSICIAN Scanned. Due on due Goal Creatinine. Due on due Goal PESTICIDE APPLICATOR Paperwork. Due on due Goal Tobacco Use. [...] Goal AST (SGOT). Due on due Goal PESTICIDE APPLICATOR Paperwork. Due on due Goal Order Annual PT. Due on due Goal OCCUPATIONAL PHYSICIAN Scanned. Due on due Goal ALT (SGPT). [...] Goal Lipid panel. Due on due Goal PESTICIDE APPLICATOR Paperwork. Due on due Goal CT-Colonography. Due on due Goal Order Annual PT. Due on due Goal AST (SGOT). Due on due Goal OCCUPATIONAL PHYSICIAN Scanned. Due on due Goal HPV. Due [...] due Goal UDT. Due on due Goal OCCUPATIONAL PHYSICIAN Scanned. Due on due Goal Medication Recon ciliation. Due on due Goal Unhealthy drug u se screening. Due on due Goal Height. Due on d ue Goal HPV. Due on due Goal FIT-DNA. Due on due Goal Lipid panel. Due on due Goal FIT. Due on due Goal Zoster vaccine ( 1st). Due on due Goal PESTICIDE APPLICATOR Paperwork. Due on due Goal Creatinine. Due [...] Goal AST (SGOT). Due on due Goal OCCUPATIONAL PHYSICIAN Scanned. Due on due Goal PHQ-9. Due on du e Goal Weight. Due on d ue Goal Review Allergy List. Due on due Goal Lipid panel. Due on due Goal FIT. Due on due Goal PESTICIDE APPLICATOR Paperwork. Due on due Goal CT-Colonography. Due [...] Goal PHQ-9. Due on du e Goal OCCUPATIONAL PHYSICIAN Scanned. Due on due Goal Review Allergy [...] due Goal HPV. Due on due Goal PESTICIDE APPLICATOR Paperwork. Due on due Goal FIT. Due on due Goal FIT. Due on due Goal PESTICIDE APPLICATOR Paperwork. Due on due Goal Medication Recon [...] u se screening. Due on due Goal OCCUPATIONAL PHYSICIAN Scanned. Due on due Goal UDT. Due [...] due Goal OARS. Due on due Goal PESTICIDE APPLICATOR Paperwork. Due on due Goal AST (SGOT). Due on due Goal ALT (SGPT). Due on due Goal Zoster vaccine ( 1st). Due on due Goal Tobacco Use. Due on due Goal Height. Due on d ue Goal CT-Colonography. Due on due Goal OCCUPATIONAL PHYSICIAN Scanned. Due on due Goal Weight. Due [...] due Goal Creatinine. Due on due Goal OCCUPATIONAL PHYSICIAN Scanned. Due on due Goal AST (SGOT). Due on due Goal PESTICIDE APPLICATOR Paperwork. Due on due Goal Medication Recon [...] due Goal Creatinine. Due on due Goal OCCUPATIONAL PHYSICIAN Scanned. Due on due Goal Order Annual [...] due Goal HPV. Due on due Goal PESTICIDE APPLICATOR Paperwork. Due on due Goal PHQ-9. Due [...] Goal ALT (SGPT). Due on due Goal OCCUPATIONAL PHYSICIAN Scanned. Due on due Goal FIT. Due on due Goal Hepatitis C scre ening. Due on due Goal Review Allergy List. Due on due Goal Height. Due on d ue Goal PHQ-9. Due on du e Goal HPV. Due on due Goal FIT-DNA. Due on due Goal OARS. Due on due Goal PESTICIDE APPLICATOR Paperwork. Due on due Goal Zoster vaccine ( 1st). Due on due Goal AST (SGOT). Due on due Goal OARS. Due on due Goal Creatinine. Due on due Goal UDT. Due on due Goal Order Annual PT. Due on due Goal PESTICIDE APPLICATOR Paperwork. Due on due Goal ALT (SGPT). Due on due Goal OCCUPATIONAL PHYSICIAN Scanned. Due on due Goal AST (SGOT). [...] Order Annual PT. Due on due Goal OCCUPATIONAL PHYSICIAN Scanned. Due on due Goal UDT. Due on due Goal Update Social Hi story. Due on due Goal Creatinine. Due on due Goal AST (SGOT). Due on due Goal PESTICIDE APPLICATOR Paperwork. Due on due Goal PHQ-9. Due [...] Medication Recon ciliation. Due on due Goal PESTICIDE APPLICATOR Paperwork. Due on due Goal Update Social Hi story. Due on due Goal Creatinine. Due on due Goal Weight. Due on d ue Goal OARS. Due on due Goal AST (SGOT). Due on due Goal Order Annual PT. Due on due Goal OCCUPATIONAL PHYSICIAN Scanned. Due on due Goal Unhealthy drug [...] Social Hi story. Due on due Goal OCCUPATIONAL PHYSICIAN Scanned. Due on due Goal Creatinine. Due on due Goal UDT. Due on due Goal Order Annual PT. Due on due Goal PESTICIDE APPLICATOR Paperwork. Due on due Goal Review Allergy [...] Goal Tobacco Use. Due on due Goal PESTICIDE APPLICATOR Paperwork. Due on due Goal Order Annual PT. Due on due Goal Weight. Due on d ue Goal AST (SGOT). Due on due Goal OCCUPATIONAL PHYSICIAN Scanned. Due on due Goal OARS. Due on due Goal Review Allergy List. Due on due Goal PHQ-9. Due on du e Goal UDT. Due on due Goal Creatinine. Due on due Goal OARS. Due on due Goal OCCUPATIONAL PHYSICIAN Scanned. Due on due Goal ALT (SGPT). Due on due Goal AST (SGOT). Due on due Goal Order Annual PT. Due on due Goal PESTICIDE APPLICATOR Paperwork. Due on due Goal PHQ-9. Due [...] Medication Recon ciliation. Due on due Goal PESTICIDE APPLICATOR Paperwork. Due on due Goal PHQ-9. Due on du e Goal ALT (SGPT). Due on due Goal Tobacco Use. Due on due Goal AST (SGOT). Due on due Goal Height. Due on d ue Goal Weight. Due on d ue Goal OCCUPATIONAL PHYSICIAN Scanned. Due on due Goal Update Social Hi story. Due on due Goal PHQ-9. Due on du e Goal Update Social Hi story. Due on due Goal Review Allergy List. Due on due Goal OCCUPATIONAL PHYSICIAN Scanned. Due on due Goal ALT (SGPT). Due on due Goal PESTICIDE APPLICATOR Paperwork. Due on due Goal Order Annual [...] Goal Tobacco Use. Due on due Goal OCCUPATIONAL PHYSICIAN Scanned. Due on due Goal ALT (SGPT). Due on due Goal Update Social Hi story. Due on due Goal AST (SGOT). Due on due Goal Order Annual PT. Due on due Goal UDT. Due on due Goal Review Allergy List. Due on due Goal Height. Due on d ue Goal PESTICIDE APPLICATOR Paperwork. Due on due Goal Medication Recon [...] Order Annual PT. Due on due Goal OCCUPATIONAL PHYSICIAN Scanned. Due on due Goal Creatinine. Due on due Goal OARS. Due on due Goal Tobacco Use. Due on due Goal PESTICIDE APPLICATOR Paperwork. Due on due Goal ALT (SGPT). Due on due Goal Weight. Due on d ue Goal OARS. Due on due Goal ALT (SGPT). Due on due Goal AST (SGOT). Due on due Goal Order Annual PT. Due on due Goal UDT. Due on due Goal PESTICIDE APPLICATOR Paperwork. Due on due Goal Review Allergy List. Due on due Goal Tobacco Use. Due on due Goal Weight. Due on d ue Goal PHQ-9. Due on du e Goal Creatinine. Due on due Goal Medication Recon ciliation. Due on due Goal Height. Due on d ue Goal OCCUPATIONAL PHYSICIAN Scanned. Due on due Goal Update Social Hi story. Due on due Goal OARS. Due on due Goal AST (SGOT). Due on due Goal UDT. Due on due Goal Order Annual PT. Due on due Goal ALT (SGPT). Due on due Goal Review Allergy List. Due on due Goal OCCUPATIONAL PHYSICIAN Scanned. Due on due Goal PESTICIDE APPLICATOR Paperwork. Due on due Goal Medication Recon [...] Goal ALT (SGPT). Due on due Goal PESTICIDE APPLICATOR Paperwork. Due on due Goal Creatinine. Due on due Goal OCCUPATIONAL PHYSICIAN Scanned. Due on due Goal AST (SGOT). [...] Review Allergy List. Due on due Goal OCCUPATIONAL PHYSICIAN Scanned. Due on due Goal UDT. Due on due Goal Tobacco Use. Due on due Goal Weight. Due on d ue Goal Height. Due on d ue Goal PESTICIDE APPLICATOR Paperwork. Due on due Goal Order Annual PT. Due on due Goal Creatinine. Due on due Goal Height. Due on d ue Goal OARS. Due on due Goal ALT (SGPT). Due on due Goal AST (SGOT). Due on due Goal PHQ-9. Due on du e Goal Update Social Hi story. Due on due Goal OCCUPATIONAL PHYSICIAN Scanned. Due on due Goal UDT. Due on due Goal PESTICIDE APPLICATOR Paperwork. Due on due Goal Tobacco Use. [...] Goal AST (SGOT). Due on due Goal OCCUPATIONAL PHYSICIAN Scanned. Due on 021 due Goal PESTICIDE APPLICATOR Paperwork. Due on due Goal Weight. Due on d ue Goal Creatinine. Due on due Referral Ordered: Vikas Somers -Allopathic & Osteopathic Physicians : Family Medicine (related to Chronic pain syndrome) ordered Referral Referred To: Vikas Somers [facility]
[address] [place], [address] [phone] Ordered: Referrals: Allopathic & Osteopathic Physicians : Family Medicine. Vikas Somers ordered Referral Ordered: Vikas Somers MD -Allopathic & Osteopathic Physicians : Family Medicine (related to Unilateral primary osteoarthritis, right knee) ordered Referral Ordered: Vikas Somers MD -Allopathic & Osteopathic Physicians : Family Medicine (related to Unilateral primary osteoarthritis, right knee) ordered Referral Referred To: Vikas Somers MD [facility]
[address] [place], [address] [phone] Ordered: Referrals: Allopathic & Osteopathic Physicians : Family Medicine. Vikas Somers MD ordered Referral Ordered: X-RAY EXAM OF KNEE, 3 Bilateral knee ordered Appointment Radha Benitez BOOKED Appointment Radha Benitez BOOKED Future Order: Lab Order ALT (SGP T) ([id number]), Collected on: , Sent on: Sent Future Order: Lab Order Creatini ne, Serum ([id number]), Collected on: , Sent on: Sent Future Order: Lab Order AST (SGO T) ([id number]), Collected on: , Sent on: Sent Future Order: Lab Order Complian ce Drug Analysis, Blood ([id number]), Collected on: , Sent on: Sent Future Order: Lab Order Drug Merced t Def 22+ Classes ([id number]), Ordered on: Ordered Future Order: Lab Order COMPLIAN CE DRUG ANALYSIS, URINE, WITH MED REPORT ([id number]), Ordered on: Ordered Future Order: Lab Order [...] is stable. Comments: Radha presents virtually via [employer] for follow up and medication management in [...] is fluctuating. Comments: Radha presents virtually via [employer] as well as via phone call d/t connection issues. for follow up and medication management in the setting of hronic BL knee pain (R<L). Last seen at [facility] on 07/17/24. Reports new low back pain [...] self care, and social activities. Comments: - [employer] Converter kay BL knee pain (R<L). Last seen at [facility] on 07/17/24. - S/p RIGHT genicular D-RFW [...] a 63 y/o female who presents via [employer] for virtual follow up and medication refill [...] a 63 y/o female who presents via [employer] for virtual follow up and medication refill [...] stable this month. Had started PT at [facility] but was told there was [...] is constant.Have yet to start PT at [facility] but notes she has an [...] a 63 y/o female who presents via [employer] for virtual follow up and medication refill [...] a 63 y/o female who presents via [employer] for virtual follow up and medication refill [...] a 63 y/o female who presents via [employer] for virtual follow up (#1) and medication [...] a 63 y/o female who presents via [employer] for virtual follow up and medication refill [...] a 62 y/o female who presents via [employer] for virtual follow up and medication refill [...] a 62 y/o female who presents via [employer] for virtual follow up and medication refill [...] a 62 y/o female who presents via [employer] for virtual follow up and medication refill [...] a 62 y/o female who presents via [employer] for virtual follow up and medication refill [...] a 62 y/o female who presents via [employer] for virtual follow up and medication refill [...] a 62 y/o female who presents via [employer] for virtual follow up and medication refill [...] a 62 y/o female who presents via [employer] for virtual follow up and medication refill [...] she did not follow up with another [facility] provider while I was out of the [...] knees are sensitive to the touch. At [facility] she stated she is hesitant to pursue [...] was last seen 1 week ago. Since [facility] she has been hospitalized for altered mental [...] is not sure if it is helpingAt [facility] she stated the medial and lateral aspects of her BL knees are sensitive to the touch. At [facility] she stated she is hesitant to pursue [...] knees are sensitive to the touch. At [facility] she stated she is hesitant to pursue [...] 61 y/o female, meeting with us via [employer] for virtual follow up and medication refill [...] y/o female, meeting with us today via [employer] Virtual Visit for follow up and medication [...] george is meeting with us today via [email or web address] Visit for follow up and medication refill. [...] ex and she had to go to [place]. 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 This [...] george is meeting with us today via [email or web address] Visit for following up and medication refill. [...] george is meeting with us today via [employer] Virtual Visit for following up and medication [...] is worse this month.She was admitted to [facility] d/t unintentional overdose (hospital discharge summary not available). She was assigned home care post- hospital discharge, but she was non-compliant hence discharged from home care services. Per home health lpn, pt bouncing from one PCP to another [...] medication. She starts pool PT at the [facility] in [place] this week. She is still considering knee [...] yet completed her Genicular nerve RFW since [facility] has not yet called to schedule the [...] work-up. She completed the PT evaluation at [facility] but has not yet started [...] she may be able to travel to [place] to receive treatment procedures.Presents with no medication [...] Recently has completed bilateral knee X-rays at [facility] and inquires about her results today- currently [...] refill. She is transferring her care from [facility] to [place] [facility]t [facility]. Reports current medication regimen provides 30-50% pain relief. Denies side effects from current medication regimen. Pain is worse. C/o persistent BL knee pain (R>L). Expresses interest in SHELBY injection. Last injection in knees was in 2008. Also reports occasional BL shaking, jerking in hands. Would like to transfer opioid management to [facility]-- says she has been taking oxycodone/acetaminophen 10/325mg [...] consult for bilateral knee pain, referred by [facility]. Pt's primary concern is her knee [...] function, and contributing to increased depression assessment correction (current) use of opiat e analgesic impression [...] Mental Status Date Cognitive Assessment Orientation - [place] ed to time, place, person, situation. Patient Care Teams Name Effective Dates (start - stop) Status Members No Information
[2025-04-14] VITALS (31 sets, daily range): BP systolic 72–119; BP diastolic 33–77; PULSE 79–149; RESP 12–18; TEMP 36.2; O2SAT 72–100
--- OUTSIDE RECORDS SUMMARY | 2025-04-14 05:33 | XMS_ITS | Clinical Summary ---
Author Organization [facility] Address [facility] [place] [address] Care Team Providers Care Community Relations Officer Name Role Phone [facility] [place] Unavailable Vikas Kraus MD Primary Care Provider + Allergies Active Allergy Reactions Criticality Noted Date Comments Codeine Rash 09/30/2015 Morphine Rash 09/30/2015 Medications omeprazole (PRILOSEC) 20 mg Delayed-Release capsule Take 20 mg by mouth once daily before a meal. Active QUEtiapine (SEROQUEL) 200 mg tablet Take 200 mg by mouth at bedtime. Active lisinopriL (PRINIVIL; ZESTRIL) 10 mg tablet Take 10 mg by mouth once daily. Active DULoxetine (CYMBALTA) 60 mg Delayed-release capsule Take 120 mg by mouth once daily. Active glipiZIDE extended-releas e (GLUCOTROL XL) 5 mg Extended-Releas e tablet Take 5 mg by mouth once daily before a meal. Active atorvastatin (LIPITOR) 40 mg tablet Take 40 mg by mouth at bedtime. 2 Active cloNIDine HCL (CATAPRES) 0.1 mg tablet Take 0.1 mg by mouth 2 times daily. 2 Active furosemide (LASIX) 20 mg tablet Take 20 mg by mouth 2 times daily. 2 Active Onglyza 5 mg tablet 2 Active metFORMIN (GLUCOPHAGE XR) 500 mg Extended-Releas e tablet Take 1,000 mg by mouth 2 times daily. 2 Active buprenorphine-n aloxone, 2 mg-0.5 mg, (SUBOXONE) 2-0.[address] 1 FILM UNDER THE TONGUE AND ALLOW TO DISSOLVE SLOWLY WITHOUT CHEWING OR SWALLOWING TWICE DAILY 2 Active gabapentin (NEURONTIN) 400 mg capsuleIndicati ons:Neuropathy Take 2 Capsules (800 mg) by mouth in the morning and 2 Capsules (800 mg) in the evening. 360 Capsule 2 Active BiPapIndication s:JHOAN (obstructive sleep apnea) BIPAP machine for home use at pressure: EPAP 6cmw, IPAP max 25cmw PS- 6 CMW, nasal mask x1/3month with nasal cushion x2/mo 1 Each 2 Active Active Problems Problem Noted Date Diagnosed Date JHOAN 02/23/2020 AHI- 101 10/11/2021 OA (osteoarthritis) of knees 11/20/2019 Encephalopathy 01/16/2015 Mood disorder in conditions classified elsewhere 01/16/2015 Opiate dependence 01/16/2015 Altered mental status 01/14/2015 Opiate overdose 01/14/2015 Depression Anxiety Diabetes High blood pressure GERD (gastroesophageal reflux disease) Morbid obesity with BMI of 50.0-59.9, adult Anemia Family History Relation Name Status Comments Brother Alive Father Mother Alive Sister Alive Social History Tobacco Use Types Packs/Day Years Used Date Smoking Tobacco: Every Day Cigarettes Smokeless Tobacco: Never Tobacco Cessation:Ready to Q uit: No; Counseling Given: Yes Alcohol Use Standard Drinks/Week Comments No 0 (1 standard drink = 0.6 oz pur e alcohol) Social Connections Answer Date Recorded Frequency of Communication with Friends and Fami ly Not on file 10/11/2021 Comments No Sex and Gender Information Value Date Recorded Sex Assigned at Not on file Legal Sex Female 6:14 AM [employer] Gender Identity Not on file Sexual Orientation Not on file Obstetrics History Last Filed Vital Signs Vital Sign Reading Time Taken Comments Blood Pressure 112/64 03/13/2022 3:42 PM CDT Pulse 96 03/13/2022 3:42 PM CDT Temperature 36.3 C (97.4 F) 12/09/2019 12:30 PM CDT Respiratory Rate 18 12/09/2019 12:3 0 PM CDT Oxygen Saturation 93% 03/13/2022 3:42 PM CDT Inhaled Oxygen Concentration - - Weight 126.8 kg (279 lb 9.6 oz) 12/15/2021 1:33 PM CDT Height 161 cm (5' 3.39) 10/11/2021 2:04 PM CDT Body Mass Index 48.93 10/11/2021 2:04 PM CDT Plan of Treatment Health Maintenance Due Date Last Done Comments Tetanus booster 1972 Depression screening for age 12+ 1973 HIV for age 15-65 1976 Hepatitis C screening for ag e 18-79 1979 Pap test for age 21-65 1982 Colonoscopy through age 75 2006 Lipids for age 45-75 2006 Mammogram for age 45-75 2006 Pneumococcal series for age 50+ (1 of 1 - PCV) 2011 Zoster (shingles) series for age 50+ (1 of 2) 2011 BMI (ht and wt on same day) for age 18+ 10/11/2022 10/11/2021 Influenza Vaccine (#1) 2025 RSV vaccine for adults or (1 - 1-dose 75+ series) 2036 Hepatitis B series for 19+ Aged Out N o longer eligible based on patient's age to complete this topic Insurance MEDICARE [place] ONLY [address] [place] [id number] MEDICARE PART B HB ONLY Member Subscriber Plan / Payer ( fective 2013-Present) Name:Radha Lawrence Member ID:[id number] Relation to Subscriber:Self Name:Radha Lawrence Subscriber ID:[id number] Payer ID:Not on file Group ID:Not on file Type:Not on file Address: ATTN: CLAIMS [address] MEDICARE PART A [place] ONLY MEDICARE [place] ONLY MED[employer] ACCESSABILITY SOLUTION [address] [place] [id number] MEDICARE PPS Advance Directives * Full Code (Latest Code Status on File) Date Activated Date Inactivated Comments 11/19/2019 10:36 PM 11/24/2019 3:00 PM Question Answer Comments Code Status Discussion: Not Discussed Care Teams Community Relations Officer Relationship Specialty Start Date End Date Vikas Kraus MD [address] [place] [address] PCP - General Family Practice 07/03/21 Wilver Carlson 12/12/18
--- NOTE | 2025-04-14 05:36 | CRLHL7_ITS ---
For Patients: As a result of the Century Cures Act, medical imaging exams and procedure reports are released immediately into your electronic medical record. You may view this report before your referring provider. If you have questions, please contact your health care provider. INDICATION: Hypotension, AFib with RVR COMPARISON: 07/04/2021 TECHNIQUE: 1 view chest radiograph. FINDINGS: Devices: None There is attenuation from the patient`s body habitus. Lung volumes are good. No focal or diffuse opacities. Mildly prominent pulmonary vascular markings without peripheral septal lines. No pleural effusion. No pneumothorax. No pneumomediastinum. Heart size is large but unchanged. Atherosclerosis. Bones: No acute findings. IMPRESSION: Cardiomegaly. Mild prominent pulmonary vascular markings/vascular congestion without interstitial edema seen. Dictated by Halina Samaniego MD @ 04/14/2025 6:08:58 AM (Electronically Signed)
--- NOTE | 2025-04-14 05:36 | ED.GENADULT ---
HPI - General Adult General Time Seen by Provider: 05:36 Date Seen: 04/14/25 Chief complaint: Hypotension Stated complaint: vertigo/back pain Time Seen by Provider: 04/14/25 05:36 Source: patient and RN notes reviewed Mode of arrival: ambulatory Limitations: no limitations History of Present Illness HPI narrative: This 65-year-old female is brought in by [facility] with atrial fibrillation with RVR, hypotension. Patient called the ambulance as she fell at home and could not get back up. She states she was not dizzy and tell she tried to stand up. She is known to be in chronic atrial fibrillation, states she has not been on blood thinners for couple years. She states she went to the dentist in 1 off blood thinners, did not go back on them. EMS noted that fire and rescue had gotten their 1st, had patient is sitting in a chair. When patient was stood up to attempt to walk to the [facility], leg somewhat collapsed unbuckled a couple of times. Her service porter looks to be tachycardic but very regular. Will need to get EKG here. Patient is adamant that she has not taken any extra medications. She notes the Ozempic makes her feel sick but she otherwise has had no acute illness, no respiratory symptoms, no cough or cold symptoms. She has chronic pain but no new pain. I subsequently did going to patient's records, seeing no history of atrial fibrillation but do see history of DVT and pulmonary embolus. Related Data Home Medications ?Medication ?Instructions ?Recorded ?Confirmed buprenorphine 4 mg-naloxone 1 mg 1 film sublingual BID 04/07/24 10/02/24 sublingual film Previous Rx's ?Medication ?Instructions ?Recorded diaper,brief,adult,disposable #100 ea 07/14/22 Blood Glucose Meter #1 ea 11/29/22 blood sugar diagnostic (Blood #100 ea 11/12/23 Glucose Test strips) atorvastatin 40 mg tablet 40 mg PO QDAY #90 tabs 08/06/24 clonidine HCl 0.1 mg tablet 0.1 mg PO BID #180 tabs 08/06/24 duloxetine 60 mg capsule,delayed 60 mg PO QDAY #90 caps 08/06/24 release furosemide 20 mg tablet 20 mg PO BID #180 tabs 08/06/24 gabapentin 400 mg capsule 800 mg (2 x 400 mg) PO BID #360 08/06/24 caps metformin 500 mg tablet,extended 1,000 mg (2 x 500 mg) PO BID #360 08/06/24 release 24 hr tabs naproxen 500 mg tablet 500 mg PO BID #180 tabs 08/06/24 omeprazole 20 mg capsule,delayed 20 mg PO QDAY #90 caps 08/06/24 release quetiapine 200 mg tablet 200 mg PO QHS #90 tabs 08/06/24 amoxicillin 875 mg-potassium 1 tab PO BID #20 tabs 10/02/24 clavulanate 125 mg tablet fluticasone 250 mcg-salmeterol 50 1 inh inhalation BID #60 ea 10/02/24 mcg/dose blistr powdr for inhalation (Advair Diskus) semaglutide 2 mg/dose (8 mg/3 mL) 2 mg (0.75 mL) subcut QWEEK #3 mL 03/18/25 subcutaneous pen injector propranolol 40 mg tablet 40 mg PO BID #60 tabs 04/03/25 Allergies Allergy/AdvReac Type Severity Reaction Status Date / Time codeine AdvReac Intermediate Does not Verified 10/02/24 16:06 work on patient [facility] Medical History COPD (chronic obstructive pulmonary disease) ?J44.9 - Chronic obstructive pulmonary disease, unspecified (ICD-10) Mixed hyperlipidemia ?E78.2 - Mixed hyperlipidemia (ICD-10) Type 2 diabetes mellitus, without long-term current use of insulin ?E11.9 - Type 2 diabetes mellitus without complications (ICD-10) Tremor of both hands ?R25.1 - Tremor, unspecified (ICD-10) Tobacco abuse ?Z72.0 - Tobacco use (ICD-10) Restrictive lung disease ?J98.4 - Other disorders of lung (ICD-10) Recurrent major depressive disorder ?F33.9 - Major depressive disorder, recurrent, unspecified (ICD-10) Pulmonary embolism ?I26.99 - Other pulmonary embolism without acute cor pulmonale (ICD-10) Poor dentition ?K08.9 - Disorder of teeth and supporting structures, unspecified (ICD-10) Osteoarthritis ?M19.90 - Unspecified osteoarthritis, unspecified site (ICD-10) Opiate or related narcotic overdose ?T40.601A - Poisoning by unspecified narcotics, accidental (unintentional), initial encounter (ICD-10) Obstructive sleep apnea syndrome ?G47.33 - Obstructive sleep apnea (adult) (pediatric) (ICD-10) Morbid obesity with body mass index (BMI) of 45.0 to 49.9 in adult ?E66.01 - Morbid (severe) obesity due to excess calories (ICD-10) ?Z68.42 - Body mass index [BMI] 45.0-49.9, adult (ICD-10) Deep vein thrombosis (DVT) ?I82.409 - Acute embolism and thrombosis of unspecified deep veins of unspecified lower extremity (ICD-10) Chronic pain ?G89.29 - Other chronic pain (ICD-10) Accidental overdose ?T50.901A - Poisoning by unspecified drugs, medicaments and biological substances, accidental (unintentional), initial encounter (ICD-10) Diabetic neuropathy ?E11.40 - Type 2 diabetes mellitus with diabetic neuropathy, unspecified (ICD-10) Right-sided congestive heart failure ?I50.810 - Right heart failure, unspecified (ICD-10) GERD (gastroesophageal reflux disease) ?K21.9 - Gastro-esophageal reflux disease without esophagitis (ICD-10) Bipolar 1 disorder ?F31.9 - Bipolar disorder, unspecified (ICD-10) Surgical History History of tonsillectomy ?Z90.89 - Acquired absence of other organs (ICD-10) History of left knee replacement ?Z96.652 - Presence of left artificial knee joint (ICD-10) History of appendectomy ?Z90.49 - Acquired absence of other specified parts of digestive tract (ICD-10) Social History Narrative: Single, lives with her son, smoker, unemployed What is your current living situation?: I presently have a place to live Problems where you live: no known problems In the past 12 months, utilities in danger of being shut off: yes In past 12 months, lack of transportation kept you from medical appts, meetings, work, or getting things needed for daily living: yes In the past 12 mos, have been you worried that your food would run out before you had money to buy more?: often true In the past 12 mos, the food you bought just didn't last and you didn't have money to buy more?: often true Smoking Status: Current every day smoker How often does anyone, including family, friends and others, physically hurt you: never How often does anyone, including family, friends and others, insult or talk down to you: never How often does anyone, including family, friends and others, threaten you with harm: never How often does anyone, including family, friends and others, scream or curse at you: never Health Related Social Needs: food insecurity (Z59.41) and transportation insecurity (Z59.82) Exam Const: Vital Signs, click to edit/add: Vital Signs - 24 hr 04/14/25 05:33 04/14/25 07:04 04/14/25 07:15 Temperature 97.1 F L Pulse Rate 79 85 Pulse Rate [Right Pulse Oximeter] 149 H Respiratory Rate 14 Blood Pressure Blood Pressure [Ri ght Upper Arm] 76/33 L Pulse Oximetry 72 L 96 94 Oxygen Delivery Me thod Room Air OxyMask Oxygen Flow Rate 4 04/14/25 07:20 04/14/25 07:21 04/14/25 07:32 Temperature Pulse Rate 122 H 131 H 122 H Pulse Rate [Right Pulse Oximeter] Respiratory Rate Blood Pressure Blood Pressure [Ri ght Upper Arm] Pulse Oximetry 97 97 Oxygen Delivery Me thod Oxygen Flow Rate 04/14/25 07:33 04/14/25 07:37 04/14/25 07:39 Temperature Pulse Rate 129 H 132 H 129 H Pulse Rate [Right Pulse Oximeter] Respiratory Rate 18 Blood Pressure 91/59 L 109/77 Blood Pressure [Ri ght Upper Arm] Pulse Oximetry 93 98 Oxygen Delivery Me thod Oxygen Flow Rate 04/14/25 07:42 04/14/25 07:45 04/14/25 07:47 Temperature Pulse Rate 126 H 104 H 137 H Pulse Rate [Right Pulse Oximeter] Respiratory Rate 12 Blood Pressure 98/77 80/66 L Blood Pressure [Ri ght Upper Arm] Pulse Oximetry 96 93 98 Oxygen Delivery Me thod Oxygen Flow Rate 04/14/25 07:52 04/14/25 07:57 04/14/25 08:00 Temperature Pulse Rate 112 H 102 H 135 H Pulse Rate [Right Pulse Oximeter] Respiratory Rate 12 Blood Pressure 72/58 L 89/68 L Blood Pressure [Ri ght Upper Arm] Pulse Oximetry 100 99 98 Oxygen Delivery Me thod Oxygen Flow Rate 04/14/25 08:02 04/14/25 08:06 04/14/25 08:11 Temperature Pulse Rate 128 H 134 H 139 H Pulse Rate [Right Pulse Oximeter] Respiratory Rate Blood Pressure 75/58 L 74/58 L 87/58 L Blood Pressure [Ri ght Upper Arm] Pulse Oximetry 97 95 98 Oxygen Delivery Me thod Oxygen Flow Rate 04/14/25 08:15 04/14/25 08:16 04/14/25 08:21 Temperature Pulse Rate 117 H 105 H 96 Pulse Rate [Right Pulse Oximeter] Respiratory Rate 13 Blood Pressure 83/63 L 95/71 Blood Pressure [Ri ght Upper Arm] Pulse Oximetry 99 93 97 Oxygen Delivery Me thod Oxygen Flow Rate 04/14/25 08:27 04/14/25 08:30 04/14/25 08:32 Temperature Pulse Rate 123 H 133 H 123 H Pulse Rate [Right Pulse Oximeter] Respiratory Rate Blood Pressure 82/71 L 95/62 Blood Pressure [Ri ght Upper Arm] Pulse Oximetry 96 96 96 Oxygen Delivery Me thod Oxygen Flow Rate EMS had a 60s systolic blood pressure prior to arrival. Patient is lying flat on the cart, is alert and conversive. She is disheveled, obese. Her speech is normal though, symmetrical facial function. Lungs are clear, good air entry, no wheezing or crackles or tachypnea. CV is fast but regular, hear no murmur. Abdomen is obese but soft, nontender, no rebound or guarding. She is moving her arms. Legs have carotic thickened lower extremities but not necessarily pitting edema. Documenting provider has reviewed patient's vital signs: yes Course Course ED Course: EMS is reporting atrial fibrillation with RVR in hypotensive patient. Will get patient on all of our monitors here, updated an EKG. I am going to order a portable chest x-ray. Her differential at this time is vast and if this is an unstable arrhythmia, I do think she may be high risk for complication of a stroke with emergent cardioversion but still may need to consider this. Will try to look at her history as she does see Dr. Kraus. Reevaluation(s) Time of Reevaluation #1: 06:03 Reevaluation #1: Putting patient's clinical picture together with her tachycardia, worsening oxygenation and hypotension with history of pulmonary emboli and DVT not on any anticoagulation, do think we need to proceed with more emergent CT PE protocol. I am not going to wait for her creatinine. She is still conversive and talking with us. She is receiving an initial L of normal saline. We should be able to get CT imaging done rather quickly and hopefully Radiology read in a short time frame to facilitate management. Her last blood pressure was 90 systolic with the fluids started, this is showing improvement. She really does not seem to have a source of any infection and does not seem to be presenting with any type of infection but need to consider this as a potential alternate etiology. We will see what her labs show. Patient's creatinine came back just as she was going into the CT scanner, her creatinine is at 5.8. It was at 0.9 in July of this year. We were not able to proceed with CT imaging for PE protocol based on this abnormality. Plan on talking to [facility] regarding transfer this patient. Nursing staff is going to try to get a South catheter in her so we can get a urinalysis. Need to consider infectious etiology, will initiate antibiotics. May need to consider pressors if her blood pressure continues to remain low. Beyond the 1 L of fluids that she was given on arrival here, do not feel that we can safely give her more at this point, do have concern for worsening right heart failure with this patient. Time of Reevaluation #2: 08:13 Reevaluation #2: Pressures have been consistently low in the 70s most recently. We are going to order vasopressin. Dr. Doe is here as well now. Were going to look at her right ventricle with ultrasound quickly. Consideration for still doing CT for PE protocol on this patient is something she and I have discussed. There may be a delay in getting this patient [facility]. I do understand her creatinine is at 5.8 but 1 of the most likely diagnoses at this time would be a pulmonary embolus causing symptomatology. May talk to Dr. Storm about just doing the CT or initiating anticoagulation preemptively. Time of Reevaluation #3: 08:40 Reevaluation #3: With Dr. Doe, patient's heart was looked at with ultrasonography. Her right ventricle is not significantly dilated. She does not have much inspiratory change in her inferior vena cava. She does seem like she has global decreased cardiac function. Her EKG is repeated as there are sometimes what seemed to be flutter waves on the monitor. She does look like she is in atrial flutter with variable block. I do not think that this rhythm alone is enough for the presentation or the hypotension. Patient has most recent blood pressure of systolic of 95 with our of map that is acceptable. We have gotten report from [facility] and patient will be transferring. We will send the vasopressin with them but at this point it is being held. This patient needs Nephrology, Cardiology, may need ultimately cardioversion but would feel much safer if it could be confirmed that there is no intracardiac thrombus. Patient does seem a bit more sleepy, her oxygen has been titrated down from 4 L to 3 L. We will check a venous blood gas prior to discharge just to ensure she is not retaining. Consultations Consultation #1: Spoke with clean energy policy analyst at [facility] Dr. Storm. At this time, he does not feel that this patient meets criteria for ICU. He would like to get CT noncontrast and will do this of chest abdomen pelvis. I will start antibiotics, have ordered blood cultures, we are working on getting urinalysis and placing a South. We will use cefepime and vancomycin. If we do need to initiate a pressor, he would recommend vasopressin. We will initiate these things, see how patient is. She is going to need transfer because of the acute kidney decline, her creatinine was 0.9 in July. Blood pressure at this time has stabilized a bit, systolic of 112/62 and then most recently of 108/78. With these blood pressure values, he would like us to do a bit more workup and touch base in about a 1/2 hour so regarding this patient. 7:52 a.m.: Have provided Dr. Storm the CT report. We still do not have urinalysis or triple viral swab back yet. Is current blood pressure is now 80/66, pulse 138, 97% on 3 L. Time: 07:08 Vital Signs Vital signs: Initial Vital Signs Temperature 97.1 F L 04/14/25 05:33 Temperature Source Temporal Artery Scan 04/14/25 05:33 Pulse Rate 149 H 04/14/25 05:33 Pulse Rhythm Irregularly Irregular 04/14/25 05:33 Respiratory Rate 14 04/14/25 05:33 Blood Pressure 76/33 L 04/14/25 05:33 Blood Pressure Mean 47 L 04/14/25 05:33 Blood Pressure Position Supine 04/14/25 05:33 Pulse Oximetry 72 L 04/14/25 05:33 Oxygen Delivery Method Room Air 04/14/25 05:33 Vital Signs Temperature 97.1 F L 04/14/25 05:33 Pulse Rate 149 H 04/14/25 05:33 Respiratory Rate 14 04/14/25 05:33 Blood Pressure 76/33 L 04/14/25 05:33 Pulse Oximetry 72 L 04/14/25 05:33 Oxygen Delivery Method Room Air 04/14/25 05:33 Temperature 97.1 F L 04/14/25 05:33 Pulse Rate 138 H 04/14/25 09:01 Respiratory Rate 13 04/14/25 08:21 Blood Pressure 119/53 L 04/14/25 09:00 Pulse Oximetry 98 04/14/25 09:01 Oxygen Delivery Method OxyMask 04/14/25 07:04 Oxygen Flow Rate 4 04/14/25 07:04 Medications Administered Medications: Discontinued Medications Generic Name Dose Route Start Last Admin Trade Name Freq PRN Reason Stop Dose Admin Sodium Chloride 1,000 mls @ 1,000 mls/hr 04/14/25 05:43 04/14/25 07:00 0.9 % Sodium Chloride 1000 Ml IV 04/14/25 06:42 Infused .Q1H MARKEL Infusion Cefepime HCl 1 gm/ Sodium 100 mls @ 200 mls/hr 04/14/25 07:06 04/14/25 08:35 Chloride IVPB 04/14/25 07:07 Infused ONCE ONE Infusion Vancomycin/PEG/NADA/Lysine/Water 2 gm in 400 mls @ 200 mls/hr 04/14/25 07:30 04/14/25 09:23 Vancomycin 2 Gm/400 Ml IVPB 04/14/25 09:29 200 mls/hr ONCE ONE Infusion Vasopressin 20 unit/ Sodium 101 mls @ 3 mls/hr 04/14/25 08:12 04/14/25 08:37 Chloride IVPB Not Given CONT [facility] Protocol Ondansetron HCl 4 mg 04/14/25 05:43 04/14/25 05:55 Ondansetron 2 Mg/Ml Inj IVP 04/14/25 05:44 4 mg ONCE ONE Administration Medical Decision Making Lab Data Lab results reviewed: Yes I reviewed the patient's lab results Labs: Lab Results 04/14/25 04/14/25 04/14/25 Range/Units 05:45 05:56 06:58 WBC 6.76 (4.50-11.00) K/uL RBC 3.50 L (4.00-5.20) m/uL Hgb 11.7 L (12.0-16.0) gm/dL Hct 37.5 (33.0-51.0) % MCV 107 H (80-100) fL MCH 33 (26-34) pg MCHC 31 L (32-36) gm/dL RDW Coeff of Yessica 15.1 (11.5-15.5) % Plt Count 185 (140-440) K/uL Neut % (Auto) 53.9 (42.0-72.0) % Lymph % (Auto) 35.2 (20-44) % [place] % (Auto) 7.7 (0.0-11.0) % Eos % (Auto) 2.5 (0.0-7.0) % Baso % (Auto) 0.4 (0.0-3.0) % Neut # (Auto) 3.64 (1.7-7.0) K/uL Lymph # (Auto) 2.38 (0.90-2.90) K/uL [place] # (Auto) 0.50 (0.00-0.90) K/UL Eos # (Auto) 0.17 (0.00-0.50) K/uL Baso # (Auto) 0.03 (0.00-0.30) K/uL Abs Immat Gran (auto) 0.02 (0.00-0.30) K/uL Imm/Tot Granulo (auto) 0.3 % D-Dimer Quant (PE/DVT) 1.42 H (0.00-0.50) ug/ml VBG pH 7.309 L (7.32-7.43) VBG pCO2 51 H (40-50) mmHG VBG pO2 39.4 (25-47) mmHG VBG HCO3 25 (21-28) mmol/L Sodium 132 L (135-149) mmol/L Potassium 4.1 (3.6-5.1) mmol/L Chloride 91 L (96-114) mmol/L Carbon Dioxide 24 (20-32) mmol/L Anion Gap 17 H (7-15) mEq/L BUN 55 H (7-30) mg/dL Creatinine 5.8 H (0.5-1.5) mg/dL Estimated GFR 8 ml/min Glucose 99 (60-115) mg/dL Lactate 4.0 H (0.5-1.9) mmol/L Calcium 8.3 L (8.4-10.6) mg/dL Magnesium 1.7 (1.5-2.6) mg/dL Total Bilirubin 1.7 H (0.1-1.5) mg/dL AST 17 (12-35) U/L ALT 15 (4-35) U/L Alkaline Phosphatase 85 (40-150) U/L Troponin I 0.02 (0.01-0.04) ng/mL C-Reactive Protein 1.3 H (0.5-1.0) mg/dL NT-Pro-B Natriuret Pep 15296 H (See Note) pg/mL Total Protein 6.5 (6.0-8.3) g/dL Albumin 3.6 (3.3-5.0) g/dL Procalcitonin 0.14 (<0.50) ng/mL Urine Color Yellow (Yellow) Urine Appearance Clear (Clear) Urine pH 5.0 (5.0-8.5) Ur Specific [place] 1.015 (1.000-1.030) Urine Protein 2+ A (Negative) Urine Glucose (UA) Negative (Negative) Urine Ketones Trace A (Negative) Urine Blood Negative (Negative) Urine Nitrite Negative (Negative) Urine Bilirubin Negative (Negative) Urine Urobilinogen 0.2 (0.2-1.0) Ur Leukocyte Esterase Negative (Negative) Urine RBC 0-2 (0-2) Urine WBC 0-2 (0-5) Ur Squamous Epith Cells Few (None-Few) Urine Bacteria Moderate A (None) Lab Acknowledgement Test Added 04/14/25 Range/Units 08:39 WBC (4.50-11.00) K/uL RBC (4.00-5.20) m/uL Hgb (12.0-16.0) gm/dL Hct (33.0-51.0) % MCV (80-100) fL MCH (26-34) pg MCHC (32-36) gm/dL RDW Coeff of Yessica (11.5-15.5) % Plt Count (140-440) K/uL Neut % (Auto) (42.0-72.0) % Lymph % (Auto) (20-44) % [place] % (Auto) (0.0-11.0) % Eos % (Auto) (0.0-7.0) % Baso % (Auto) (0.0-3.0) % Neut # (Auto) (1.7-7.0) K/uL Lymph # (Auto) (0.90-2.90) K/uL [place] # (Auto) (0.00-0.90) K/UL Eos # (Auto) (0.00-0.50) K/uL Baso # (Auto) (0.00-0.30) K/uL Abs Immat Gran (auto) (0.00-0.30) K/uL Imm/Tot Granulo (auto) % D-Dimer Quant (PE/DVT) (0.00-0.50) ug/ml VBG pH 7.349 (7.32-7.43) VBG pCO2 41 (40-50) mmHG VBG pO2 174.0 H (25-47) mmHG VBG HCO3 22 (21-28) mmol/L Sodium (135-149) mmol/L Potassium (3.6-5.1) mmol/L Chloride (96-114) mmol/L Carbon Dioxide (20-32) mmol/L Anion Gap (7-15) mEq/L BUN (7-30) mg/dL Creatinine (0.5-1.5) mg/dL Estimated GFR ml/min Glucose (60-115) mg/dL Lactate (0.5-1.9) mmol/L Calcium (8.4-10.6) mg/dL Magnesium (1.5-2.6) mg/dL Total Bilirubin (0.1-1.5) mg/dL AST (12-35) U/L ALT (4-35) U/L Alkaline Phosphatase (40-150) U/L Troponin I (0.01-0.04) ng/mL C-Reactive Protein (0.5-1.0) mg/dL NT-Pro-B Natriuret Pep (See Note) pg/mL Total Protein (6.0-8.3) g/dL Albumin (3.3-5.0) g/dL Procalcitonin (<0.50) ng/mL Urine Color (Yellow) Urine Appearance (Clear) Urine pH (5.0-8.5) Ur Specific [place] (1.000-1.030) Urine Protein (Negative) Urine Glucose (UA) (Negative) Urine Ketones (Negative) Urine Blood (Negative) Urine Nitrite (Negative) Urine Bilirubin (Negative) Urine Urobilinogen (0.2-1.0) Ur Leukocyte Esterase (Negative) Urine RBC (0-2) Urine WBC (0-5) Ur Squamous Epith Cells (None-Few) Urine Bacteria (None) Lab Acknowledgement Imaging Data Chest x-ray: Attestation: I have reviewed the pertinent imaging results. Radiologist's impression: Patient: DAR HELM Facility:?[facility] Patient ID:?[id number] Site Patient ID:?[id number] Site :?[id number] Study:?XRay-Chest PORTABLE-04/14/2025 5:53:59 AM Ordering Physician:Yash Mas Final Report: INDICATION: Hypotension, AFib with RVR COMPARISON: 07/04/2021 TECHNIQUE: 1 view chest radiograph. FINDINGS: Devices: None There is attenuation from the patient`s body habitus. Lung volumes are good. No focal or diffuse opacities. Mildly prominent pulmonary vascular markings without peripheral septal lines. No pleural effusion. No pneumothorax. No pneumomediastinum. Heart size is large but unchanged. Atherosclerosis. Bones: No acute findings. IMPRESSION: Cardiomegaly. Mild prominent pulmonary vascular markings/vascular congestion without interstitial edema seen. Dictated by Halina Samaniego MD @ 04/14/2025 6:08:58 AM (Electronic Signature) CT Chest/Ab/Pelvis: Attestation: I have reviewed the pertinent imaging results. Radiologist's impression: Patient: DAR HELM Facility:?[facility] Patient ID:?[id number] Site Patient ID:?[id number] Site :?[id number] Study:?CT-Chest/Abd/Pelvis w/o-04/14/2025 7:31:34 AM Ordering Physician:Yash Mas Final Report: INDICATION: Tachycardia and hypotension of unknown etiology. COMPARISON: None TECHNIQUE: CT examination of the chest, abdomen and pelvis was performed without intravenous contrast. Thin section axial images were obtained from the thoracic inlet through the pubic symphysis. Oral contrast was not administered. Sagittal and coronal reformatted imaging was performed. Please note that all CT scans at this facility use dose modulation, iterative reconstruction, and/or weight-based dosing when appropriate to reduce radiation dose to as low as reasonably achievable. FINDINGS: CHEST: The heart is mildly enlarged. There is no mediastinal or hilar adenopathy or mass. No significant pericardial fluid. Atherosclerotic vascular and valvular calcifications are noted. Small hiatal hernia. The lungs show no focal consolidation, infiltrate or mass. No pleural effusion or pneumothorax. A small amount of gas is noted in the right internal thoracic/internal mammary veins. This is generally a normal/clinically insignificant finding assuming that the patient had an IV started or intravenous injection recently. ABDOMEN AND PELVIS: LIVER/BILIARY SYSTEM:The liver is normal in size and configuration given the lack of intravenous contrast. There is no visible focal mass and there is no intra- or extra hepatic biliary ductal dilatation.Distended but otherwise unremarkable appearing gallbladder. Consider sonography. ADRENALS: Normal non-contrast appearance KIDNEYS, URETERS and BLADDER:No focal mass on these noncontrast images. Small intrarenal calculi on the left. No hydronephrosis or hydroureter. The bladder is decompressed by South catheter. SPLEEN:Normal non-contrast appearance. PANCREAS: Normal non-contrast appearance. RETROPERITONEUM and MESENTERY: There is no mass, adenopathy or aortic aneurysm. Vascular calcification GASTROINTESTINAL SYSTEM: Diffuse colonic fecal retention without mechanical obstruction. Scattered diverticulosis. No acute appearing GI finding on this noncontrast study. PELVIS: No mass, adenopathy or free fluid. OSSEOUS STRUCTURES and ABDOMINAL WALL: No destructive process of bone. Ventral hernia with the abdominal wall defect measuring about 2.8 centimeters. This admits peritoneal fat. The hernia sac measures about 9 centimeters. OTHER: No free fluid or free air. IMPRESSION: 1. CHEST:: Mildly enlarged heart. Vascular and valvular calcifications. Lungs and pleural spaces appear normal. 2. A small amount of gas is noted in the right internal mammary/internal thoracic veins. This is generally considered a normal finding of no clinical significance assuming there has been a recent intravenous injection or IV started. 3. ABDOMEN AND PELVIS: Distended but otherwise unremarkable appearing gallbladder. Consider sonography. Diffuse colonic fecal retention without mechanical obstruction. Other nonacute appearing findings as above. 4. OSSEOUS STRUCTURES AND BODY WALL: Degenerative changes. Fat containing ventral hernia as described Please note that all CT scans at this facility use dose modulation, iterative reconstruction, and/or weight-based dosing when appropriate to reduce radiation dose to as low as reasonably achievable. Dictated by Pb Nieves MD @ 04/14/2025 7:40:34 AM (Electronic Signature) ECG Data Attestation: I personally reviewed and interpreted this ECG as follows: (Sinus tachycardia, 147 beats per minute. Q-waves inferiorly but difficult to ascertain the ST segments and T-waves due to the tachycardia.) Prior ECG tracings: not available for review Critical Care Time Critical Care Time Critical Care Time: Yes Attestation: The patient required my highest level preparedness to intervene emergently and I personally spent this critical care time directly and personally managing the patient. This critical care time included: Obtaining a history; Examining the patient; Pulse oximetry; Ordering and reviewing of studies; Arranging urgent treatment with development of a management plan; Evaluation of patients response to treatment; Frequent reassessment discussions with other providers. This critical care time was performed to assess and manage the high probability of imminent life-threatening deterioration that could result in multiorgan failure. It was exclusive of separate billable procedures and treating other patients and teaching time. Total Critical Care Time in Minutes: 120 Discharge Plan Discharge Clinical Impression: Acute hypotension, Sinus tachycardia, Acute renal failure Patient Disposition: Xfer [facility] Discharge Location: [facility] Prescriptions: No Action buprenorphine-naloxone 4-1 mg film 1 film sublingual BID amoxicillin-pot clavulanate 875-125 mg tablet 1 tab PO BID Qty: 20 0RF fluticasone propion-salmeterol [Advair Diskus] 250-50 mcg/dose blister with device 1 inh inhalation BID Qty: 60 2RF (DME) diaper,brief,adult,disposable Misc See Rx Instructions .Route Qty: 100 3RF Rx Instructions: As directed (DME) Blood Glucose Meter Mis See Rx Instructions .Route Qty: 1 0RF Rx Instructions: use to check blood glucose two times daily (DME) Blood Glucose Test Strip See Rx Instructions .Route Qty: 100 10RF Rx Instructions: use to check blood glucose two times daily atorvastatin 40 mg tablet 40 mg PO QDAY Qty: 90 3RF clonidine HCl 0.1 mg tablet 0.1 mg PO BID Qty: 180 3RF duloxetine 60 mg capsule,delayed release(DR/EC) 60 mg PO QDAY Qty: 90 3RF furosemide 20 mg tablet 20 mg PO BID Qty: 180 3RF gabapentin 400 mg capsule 800 mg PO BID Qty: 360 3RF metformin 500 mg tablet extended release 24 hr 1,000 mg PO BID Qty: 360 3RF naproxen 500 mg tablet 500 mg PO BID Qty: 180 3RF omeprazole 20 mg capsule,delayed release(DR/EC) 20 mg PO QDAY Qty: 90 3RF quetiapine 200 mg tablet 200 mg PO QHS Qty: 90 3RF semaglutide 2 mg/dose (8 mg/3 mL) pen injector 2 mg subcut QWEEK Qty: 3 1RF propranolol 40 mg tablet 40 mg PO BID Qty: 60 5RF Stand Alone Forms: [employer] Info Instructions Procedures ABG Interpretation ABG Results: 04/14/25 04/14/25 05:45 08:39 VBG pH 7.309 L 7.349 VBG pCO2 51 H 41 VBG pO2 39.4 174.0 H VBG HCO3 25 22
[2025-04-14 05:48] LABS: Lactate* 4.0 mmol/L (0.5-1.9)
[2025-04-14 05:51] LABS: Hematocrit* 37.5 % (33.0-51.0); Hemoglobin* 11.7 gm/dL (12.0-16.0); Immature Granulocytes Abs Auto 0.02 K/uL (0.00-0.30); Immature Granulocytes Pct Auto 0.3 %; Lymphocytes Absolute Auto 2.38 K/uL (0.90-2.90); Mean Corpuscular HGB Conc 31 gm/dL (32-36); Mean Corpuscular Hemoglobin 33 pg (26-34); Mean Corpuscular Volume 107 fL (80-100); RDW Coefficient of Variation % 15.1 % (11.5-15.5); Red Blood Count* 3.50 m/uL (4.00-5.20); White Blood Count* 6.76 K/uL (4.50-11.00)
[2025-04-14 05:52] LABS: Slide Review Reflex No
[2025-04-14] MEDS: ONDANSETRON 2 MG/ML inj 4 MG IVP (05:55)
[2025-04-14 05:59] LABS: HCO3 VBG 25 mmol/L (21-28); PCO2 VBG 51 mmHG (40-50); PO2 VBG 39.4 mmHG (25-47); pH VBG 7.309 (7.32-7.43)
[2025-04-14 06:04] LABS: Albumin* 3.6 g/dL (3.3-5.0); Chloride* 91 mmol/L (96-114); Potassium* 4.1 mmol/L (3.6-5.1); Sodium* 132 mmol/L (135-149)
[2025-04-14 06:07] LABS: Alanine Aminotransferase* 15 U/L (4-35); Alkaline Phosphatase* 85 U/L (40-150); Anion Gap 17 mEq/L (7-15); Aspartate Amino Transferase* 17 U/L (12-35); Bilirubin Total* 1.7 mg/dL (0.1-1.5); Blood Urea Nitrogen* 55 mg/dL (7-30); Calcium* 8.3 mg/dL (8.4-10.6); Carbon Dioxide* 24 mmol/L (20-32); Creatinine* 5.8 mg/dL (0.5-1.5); Estimated Glomerular Filt Rate 8 ml/min; Glucose* 99 mg/dL (60-115); Total Protein* 6.5 g/dL (6.0-8.3)
[2025-04-14 06:12] LABS: D Dimer Quantitative* 1.42 ug/ml (0.00-0.50)
[2025-04-14 06:24] LABS: NT Pro B Type NatriureticPept* 20400 pg/mL (See Note)
--- NOTE | 2025-04-14 07:07 | CRLHL7_ITS ---
For Patients: As a result of the 21st Century Cures Act, medical imaging exams and procedure reports are released immediately into your electronic medical record. You may view this report before your referring provider. If you have questions, please contact your health care provider. INDICATION: Tachycardia and hypotension of unknown etiology. COMPARISON: None TECHNIQUE: CT examination of the chest, abdomen and pelvis was performed without intravenous contrast. Thin section axial images were obtained from the thoracic inlet through the pubic symphysis. Oral contrast was not administered. Sagittal and coronal reformatted imaging was performed. Please note that all CT scans at this facility use dose modulation, iterative reconstruction, and/or weight-based dosing when appropriate to reduce radiation dose to as low as reasonably achievable. FINDINGS: CHEST: The heart is mildly enlarged. There is no mediastinal or hilar adenopathy or mass. No significant pericardial fluid. Atherosclerotic vascular and valvular calcifications are noted. Small hiatal hernia. The lungs show no focal consolidation, infiltrate or mass. No pleural effusion or pneumothorax. A small amount of gas is noted in the right internal thoracic/internal mammary veins. This is generally a normal/clinically insignificant finding assuming that the patient had an IV started or intravenous injection recently. ABDOMEN AND PELVIS: LIVER/BILIARY SYSTEM:The liver is normal in size and configuration given the lack of intravenous contrast. There is no visible focal mass and there is no intra- or extra hepatic biliary ductal dilatation.Distended but otherwise unremarkable appearing gallbladder. Consider sonography. ADRENALS: Normal non-contrast appearance KIDNEYS, URETERS and BLADDER:No focal mass on these noncontrast images. Small intrarenal calculi on the left. No hydronephrosis or hydroureter. The bladder is decompressed by South catheter. SPLEEN:Normal non-contrast appearance. PANCREAS: Normal non-contrast appearance. RETROPERITONEUM and MESENTERY: There is no mass, adenopathy or aortic aneurysm. Vascular calcification GASTROINTESTINAL SYSTEM: Diffuse colonic fecal retention without mechanical obstruction. Scattered diverticulosis. No acute appearing GI finding on this noncontrast study. PELVIS: No mass, adenopathy or free fluid. OSSEOUS STRUCTURES and ABDOMINAL WALL: No destructive process of bone. Ventral hernia with the abdominal wall defect measuring about 2.8 centimeters. This admits peritoneal fat. The hernia sac measures about 9 centimeters. OTHER: No free fluid or free air. IMPRESSION: 1. CHEST:: Mildly enlarged heart. Vascular and valvular calcifications. Lungs and pleural spaces appear normal. 2. A small amount of gas is noted in the right internal mammary/internal thoracic veins. This is generally considered a normal finding of no clinical significance assuming there has been a recent intravenous injection or IV started. 3. ABDOMEN AND PELVIS: Distended but otherwise unremarkable appearing gallbladder. Consider sonography. Diffuse colonic fecal retention without mechanical obstruction. Other nonacute appearing findings as above. 4. OSSEOUS STRUCTURES AND BODY WALL: Degenerative changes. Fat containing ventral hernia as described Please note that all CT scans at this facility use dose modulation, iterative reconstruction, and/or weight-based dosing when appropriate to reduce radiation dose to as low as reasonably achievable. Dictated by Pb Nieves MD @ 04/14/2025 7:40:34 AM (Electronically Signed)
[2025-04-14 07:35] LABS: Appearance Urine Clear (Clear)
[2025-04-14] MEDS: CEFEPIME HCL 1 GM in 0.9 % SODIUM CHLORIDE Mini-bag 100 ML IVPB (07:56)
[2025-04-14] MEDS: VANCOMYCIN 2 GM/400 ML 2 GM/400 ML PIGGYBACK IVPB (08:00)
[2025-04-14 08:50] LABS: HCO3 VBG 22 mmol/L (21-28); PCO2 VBG 41 mmHG (40-50); PO2 VBG 174.0 mmHG (25-47); pH VBG 7.349 (7.32-7.43)
[2025-04-14 08:50] LABS: Procalcitonin* 0.14 ng/mL (<0.50)
== END 2025-04-14 09:33 | disposition short-term general hospital (02) ==
PROVIDERS: Emergency Medicine; Emergency Provider Family Medicine; PCP Family Medicine
DX: I95.9 Hypotension, unspecified (principal); R00.0 Tachycardia, unspecified; N19 Unspecified kidney failure; Z86.711 Personal history of pulmonary embolism; Z86.718 Personal history of other venous thrombosis and embolism
CPT/HCPCS: 36415; 71045; 71250; 74176; 80053; 81001; 82803; 83605; 83735; 83880; 84145; 84484; 85025; 85379; 86140; 87040; 87086; 87631; 93005; 94761; 99285; 99291; 99292; J0692; J2405; J3375; J7030

== ENCOUNTER 2025-04-14 08:51 | Outpatient (CLI) | payer MEDICARE, SELFPAY | END 2025-04-14 08:52 | disposition home or self-care (01) | LOC: AMB 04-23 17:46 | PROVIDERS: PCP Family Medicine; Visit Provider Family Medicine | DX: I95.9 Hypotension, unspecified (principal); R00.0 Tachycardia, unspecified; N17.9 Acute kidney failure, unspecified | CPT/HCPCS: A0425; A0427 ==